=== PATIENT | male | born 1950 | race Caucasian/White ===

== ENCOUNTER 2016-12-08 19:09 | Inpatient (IN) | payer MEDICARE, OTHER ==
[2016-12-08] VITALS (13 sets, daily range): BP systolic 161–191; BP diastolic 64–80; PULSE 72–89; RESP 14–19; Ht 157.5 cm; Wt 76.6 kg
[~2016-12-08] VITALS: Ht 157.5 cm; Wt 76.6 kg
[2016-12-08] MEDS ORDERED: HYDR-3671 PO (20:02)
[2016-12-08] MEDS ORDERED: LANT3I SC (20:02)
[2016-12-08] MEDS ORDERED: CLON-379 PO (20:02)
[2016-12-08] MEDS ORDERED: CLONI (20:02)
[2016-12-08] MEDS ORDERED: INSU100C SQ (20:02)
[2016-12-08] MEDS ORDERED: CARV25TA97 PO (20:02)
[2016-12-08] MEDS ORDERED: TACR0.5C18 PO (20:02)
[2016-12-08] MEDS ORDERED: NIFE60TA11 PO (20:02)
[2016-12-08] MEDS ORDERED: PRED5 PO (20:02)
[2016-12-08] MEDS ORDERED: LEFL20TA PO (20:02)
--- NOTE | 2016-12-08 20:13 | RADRPT ---
PROCEDURE: XR Chest AP portable CLINICAL INDICATION: Preop TECHNIQUE: An AP portable radiograph of the chest was submitted. COMPARISON: None. FINDINGS: Support Hardware: None Cardiovascular: The cardiovascular silhouette appears unremarkable. Lung Helm: The lung helm appear clear with no nodule, alveolar infiltrate, for a interstitial pr ominence evident. Pleural Spaces: No pneumothorax or pleural effusion is identified. Osseous Structures: Moderate diffuse degenerative spine changes are evident. Soft Tissues: The right hemidiaphragm is mildly elevated and the soft tissues are generous. IMPRESSION: 1. Moderate degenerative spine changes 2. Elevated right hemidiaphragm 3. No evidence of active cardiopulmonary disease. Physician Liliana Date Time Electronically viewed and signed by Physician Liliana on 12/08/2016 20:13 /
[2016-12-08] MEDS ORDERED: INSULIN REGULAR, HUMAN 100 UNIT/1 ML 3ML VIAL IV STA (20:26)
[2016-12-08] MEDS ORDERED: MIDAZOLAM 1 MG/ML 2 ML INJ ONE (21:25)
[2016-12-08] MEDS ORDERED: FENTAnyl 50 MCG/ML VIAL ONE (21:25)
[2016-12-08] MEDS ORDERED: ONDANSETRON 4 MG INJ IV PRN ×2 (22:00→22:30)
[2016-12-08] MEDS ORDERED: FENTAnyl 50 MCG/ML VIAL IV PRN (22:00)
[2016-12-08] MEDS ORDERED: LABETALOL HCL 20MG INJ IV PRN (22:00)
[2016-12-08] MEDS ORDERED: HYDROmorphONE (0.2 MG/ML) 10ML SYG IV PRN ×2 (22:00)
[2016-12-08] MEDS ORDERED: DIPHENHYDRAMINE 50 MG INJ IV PRN (22:00)
[2016-12-08] MEDS ORDERED: ETOMIDATE 20 MG INJ ONE (22:07)
[2016-12-08] MEDS ORDERED: LIDOCAINE 2% (SDV) 5 ML INJ ONE (22:07)
[2016-12-08] MEDS ORDERED: ONDANSETRON 4 MG INJ ONE (22:07)
[2016-12-08] MEDS ORDERED: CEFAZOLIN 1 GM INJ ONE (22:07)
[2016-12-08] MEDS ORDERED: POLYMYXIN/BACITRACIN 1L IRRIG ONE (22:17)
[2016-12-08] MEDS: hydrALAzine 20 MG INJ IV PRN ×2 (22:18→22:41)
[2016-12-08] MEDS ORDERED: GLUCOSE GEL 15 GRAM TUBE BUCCAL PRN (23:00)
[2016-12-08] MEDS ORDERED: GLUCAGON 1 MG INJ IM PRN (23:00)
[2016-12-08] MEDS ORDERED: DEXTROSE 50% 50 ML SYRINGE IV PRN ×2 (23:00)
[2016-12-08] MEDS ORDERED: HYDROCODONE/APAP (5/325) TAB PO PRN (23:00)
[2016-12-08] MEDS ORDERED: GLUCOSE GEL 15 GRAM TUBE PO PRN ×2 (23:00)
[2016-12-09] VITALS (8 sets, daily range): BP systolic 136–188; BP diastolic 67–90; PULSE 72–84; RESP 16–20
[2016-12-09] MEDS: INSULIN GLARGINE [LANtus] 3 ML PEN SC SCH ×2 (01:24→21:35)
[2016-12-09] MEDS: hydrALAzine 20 MG INJ IV PRN ×4 (02:39→22:38)
--- NOTE | 2016-12-09 04:35 | OPR ---
DATE OF OPERATION: 12/08/2016 SURGEON: Lia Mayorga DPM EDUCATION MANAGERS: None. PREOPERATIVE DIAGNOSES: 1. Left foot gangrene. 2. Cellulitis. 3. Diabetes type 2 with a kidney transplant. POSTOPERATIVE DIAGNOSES: 1. Left foot gangrene. 2. Cellulitis. 3. Diabetes type 2 with a kidney transplant. PROCEDURE PERFORMED: 1. Left foot open partial hallux amputation. 2. Application of wound VAC. COMPLICATIONS: None. ESTIMATED BLOOD LOSS: Minimal. SPECIMENS: Bone culture and bone for pathology. ANESTHESIA: General. INDICATION FOR PROCEDURE: A 66-year-old male with gangrene to the left great toe, failed outpatient treatment, has had deterioration over the last 2 months, now with signs of cellulitis. The patient was seen in the preoperative holding area, discussed diagnosis and treatment options. The patient had poor prognosis due to comorbidities. He had been evaluated preoperatively by vascular, and per daughter, the patient underwent balloon angioplasty. The patient with multiple comorbidities, history of diabetes, renal transplant status on immunosuppressants. Procedure recommended due to infection and risk for further loss of tissue and informed consent was obtained for hallux amputation with partial first ray amputation. DESCRIPTION OF PROCEDURE: The patient was brought into the operating room and placed in the supine position. Formal timeout was performed. Extremity was prepped with Betadine and draped in usual sterile fashion. The patient had circumferential necrosis of the left great toe with a severe malodor. Using a 15 blade, incision was carried down to bone and incised proximal to the level of gangrene. A sagittal saw was used to transect the proximal phalanx. The toe was excised and sent to pathology. Additional portion of the proximal phalanx was obtained for bone for culture. The wound was irrigated with bacitracin and saline solution. The patient had necrosis of skin, subq, tendon and bone in addition to what was debrided excisionally. A wound VAC was applied intraoperatively with a silver dressing. The patient had minimal blood loss. The patient tolerated the procedure well and was transferred to the PACU with vital signs stable, wound VAC over 75 mmHg continuous setting. POSTOPERATIVE PLAN: Patient will be admitted. He has elevated blood sugar and recommend tight glycemic control. Concern with residual osteomyelitis. Infectious disease was consulted. Despite prior attempts with vascular intervention, the patient has a poor prognosis due to minimal intraoperative bleeding at risk for further tissue loss. The patient had been seen by Dr. Sanderson preoperatively. Pt with poor intraoperative bleeding. Obtain consultation for alternative options such as bypass surgery. The patient is initiated on 2 grams of Ancef preoperatively. Dictated By: LIA OSHEA/KIEL Conf#: [id number] DID#: [id number] MTDD
[2016-12-09 05:49] LABS: BASOPHILS % 0.4 % (0.0-2.0); EOSINOPHILS # 0.1 10^3/ul (0.0-0.5); EOSINOPHILS % 0.7 % (0.0-7.0); HEMATOCRIT 35.7 % (42.0-52.0); HEMOGLOBIN 11.9 g/dl (14.0-18.0); LYMPHOCYTES # 1.7 10^3/ul (0.8-2.9); LYMPHOCYTES % 15.4 % (15.0-51.0); MEAN CORPUSCULAR HEMOGLOBIN 30.1 pg (29.0-33.0); MEAN CORPUSCULAR HGB CONC 33.2 g/dl (32.0-37.0); MEAN CORPUSCULAR VOLUME 90.7 fl (82.0-101.0); MEAN PLATELET VOLUME 8.3 fl (7.4-10.4); MONOCYTE # 0.9 10^3/ul (0.3-0.9); MONOCYTES % 7.8 % (0.0-11.0); NEUTROPHIL # 8.6 10^3/ul (1.6-7.5); NEUTROPHILS % 75.7 % (39.0-77.0); PLATELET COUNT 225 10^3/UL (140-440); RED BLOOD COUNT 3.94 10^6/ul (4.70-6.10); RED CELL DISTRIBUTION WIDTH 13.6 % (11.5-14.5); UNCORRECTED WBC 11.3 10^3/ul (4.8-10.8); WHITE BLOOD COUNT 11.3 10^3/ul (4.8-10.8)
[2016-12-09 05:51] LABS: ALBUMIN 3.1 g/dl (3.3-4.9); POTASSIUM 3.5 mmol/L (3.5-5.1)
[2016-12-09 05:53] LABS: CREATININE 0.88 mg/dl (0.61-1.24)
[2016-12-09 05:54] LABS: CALCIUM 8.2 mg/dl (8.4-10.2)
[2016-12-09 05:57] LABS: C-REACTIVE PROTEIN 3.6 mg/dl (0.0-0.9)
[2016-12-09 06:02] LABS: PREALBUMIN 13.1 mg/dl (17.6-36.0)
[2016-12-09 06:45] LABS: CONDITION 1
[2016-12-09] MEDS: INSULIN ASPART [NOVOLOG] 3 ML PEN SC SCH ×4 (07:50→22:18)
--- NOTE | 2016-12-09 07:55 | CONS ---
DATE OF ADMISSION: 12/08/2016 DATE OF CONSULTATION: 12/08/2016 CHIEF COMPLAINT: 1. Left foot gangrene. 2. Cellulitis. 3. Edema. HISTORY OF PRESENT ILLNESS: This is a 66-year-old male with gangrene and infected left great toe scheduled for outpatient operative intervention with Dr. Crenshaw, I was asked to assist. The patient had preoperative testing and consented for left great toe amputation, partial resection of 1st metatarsal. The patient during the perioperative period had vascular evaluation with Dr. Adrian Sanderson and at [facility]. The patient relates a history of an initial minor injury with a cut which subsequently went infected, was evaluated 3 times at [place] and subsequently had been referred by his primary to Dr. Crenshaw for evaluation and management. The patient with multiple comorbidities, at risk for further loss of foot and limb. The patient has a history of diabetes, poorly controlled. Blood sugar remains elevated despite being on medication. PAST MEDICAL HISTORY: Includes diabetes type 2; hypertension; vitamin D deficiency; hyperlipidemia; BPH; history of end-stage renal disease, kidney transplant status 2014; history of CVA with residual defect; mild erectile dysfunction. PAST SURGICAL HISTORY: Bilateral eye surgery, appendectomy 6 years ago, kidney transplant in 2014. FAMILY HISTORY: Diabetes. SOCIAL HISTORY: , lives with and daughter. Smoking history: None. MEDICATIONS: Include: 1. Carvedilol 25 mg one p.o. b.i.d. 2. Clonidine 0.1 mg up to 3 times per hour if BP 170 to 190. 3. Hydralazine 75 mg one p.o. t.i.d. 4. Insulin Lispro sliding scale. 5. Lantus 25 units at bedtime. 6. Prednisone 5 mg one p.o. daily. 7. Procardia-XL 1 p.o. b.i.d. 8. Prograf 0.5 mg one p.o. b.i.d. REVIEW OF SYSTEMS: Denies any fever, nausea, vomiting. Has pain to the left foot, severe malodor. He denies bruising, bleeding. PHYSICAL EXAMINATION: VITAL SIGNS: Height is 64 inches. Weight 169 pounds. BMI 29.01. GENERAL: The patient alert, oriented. No acute distress. HEENT: Head is normocephalic, atraumatic. Extraocular motion intact. NECK: The patient has midline trachea. Normal range of motion of neck. EXTREMITIES: The patient has 2+ femoral pulse, 1+ popliteal. Pedal pulses are nonpalpable. Left hallux with gangrene at the level of the metatarsophalangeal joint. There is severe malodor, dusky-appearing changes to dorsal lesser metatarsophalangeal joints. No evidence of lymphangitis. There is pain with palpation of the left great toe. LABORATORIES: WBC 11.83, hemoglobin 13.3, hematocrit 40.5, platelets 281. PT 11.3, INR 1. Sodium 136, potassium 4.5, chloride 98, CO2 29, glucose 359, BUN is 27, creatinine 1.32. ASSESSMENT: 1. Left hallux gangrene. 2. Diabetes type 2, poorly controlled. 3. Hypertension. 4. Renal transplant status. 5. Vitamin D deficiency. 6. Hyperlipidemia. 7. History of cerebrovascular accident. 8. Peripheral arterial disease with history of recent revascularization balloon angioplasty. PLAN: The patient seen in the preoperative holding area, was requested to assist by Dr. Crenshaw. Discussed diagnosis and treatment options with patient and daughter. The patient at risk for further loss of toe, foot and limb given presence of infection. The patient consented for left hallux amputation up to partial 1st ray amputation, possible application of wound VAC. Given comorbidities, underlying vascular status, guarded prognosis for wound healing, the patient recommended admission postsurgically to have tight glycemic control , monitoring of pain as well as further administration of antibiotics, and the patient and family amenable. Discussed risks of surgery including bleeding, blood clots, nonhealing wound, need for further operative intervention and need for advanced therapies postoperatively. The patient had been in discussion with his vascular surgeon, and if circulation inadequate to heal the wound, may require alternative options. Discussed hospital admission with the hospitalist , and they will assist with medical management postoperatively. Dictated By: LIA OSHEA/KIEL Conf#: [id number] DID#: [id number] MTDD
[2016-12-09] MEDS: predniSONE 5 MG TAB PO SCH (08:06)
--- NOTE | 2016-12-09 08:31 | HP ---
Date/Time of Note Date/Time of Note DATE: 12/09/16 TIME: 08:23 Assessment/Plan Lines/Catheters IV Catheter Type (from Nrsg): Saline Lock Assessment/Plan Assessment/Plan IMPRESSION 1. Left foot gangrene s/p Left foot open partial hallux amputation and application of wound VAC. 2. DM 3. CVA 4. Kidney transplant PLAN Cont current medical mgmt Adjust insulin as needed for better glycemic control. currently stable Pain mgmt as needed Cont anti-rejection meds. if pt will have prolonged stay, will place a nephrology consult. Will check prograf level. HPI/ROS Admit Date/Time Admit Date/Time Dec 08, 2016 at 20:33 Hx of Present Illness This is a 66 yo male with hx of DM, CVA, kidney transplant and left foot gangrene who is now s/p Left foot open partial hallux amputation and application of wound VAC. Consult was placed for medical mgmt. Except for pain at surgical site, he denied chest pain, SOB, fever, chills, N/V. . PMH/Family/Social Social History Smoking Status: Never smoker Exam/Review of Systems Vital Signs Vitals Vital Signs Date Time Temp Pulse Resp B/P Pulse Ox O2 Delivery O2 Flow Rate FiO2 12/09/16 06:42 98.0 72 18 188/90 96 Room Air 12/08/16 22:23 6.0 Intake and Output 12/08/16 12/08/16 12/09/16 15:00 23:00 07:00 Intake Total 800 ml 500 ml Output Total 25 ml 700 ml Balance 775 ml -200 ml Exam Constitutional: alert, oriented, well developed Head: atraumatic, normocephalic Eyes: EOMI, PERRL Respiratory: clear to auscultation, normal air movement Cardiovascular: nl pulses, regular rate and rhythm Gastrointestinal: non-tender, soft Extremities: normal pulses, other (left foot surgical site covered) Labs Result Diagram: 12/09/1643912/09/16439 Medications Medications Current Medications Ondansetron HCl (Zofran Inj) 4 mg Q6H PRN IV NAUSEA AND/OR VOMITING; Start at 22:30 Carvedilol (Coreg) 25 mg BID PO Last administered on 12/09/16t 08:06; Admin Dose 25 MG; Start 12/09/16 at 09:00 Hydralazine HCl (Apresoline) 75 mg TID PO Last administered on 12/09/16 08:05 ; Admin Dose 75 MG; Start 12/09/16 at 09:00 Prednisone (Prednisone) 5 mg DAILY PO Last administered on 12/09/16 08:06; Admin Dose 5 MG; Start 12/09/16 at 09:00 Tacrolimus (Prograf) 0.5 mg BID PO ; Start 12/09/16 at 09:00 Insulin Glargine (Lantus) 25 unit HS SC Last administered on 12/09/16 01:24; Admin Dose 25 UNIT; Start 12/08/16 at 22:35 Miscellaneous Information 1 ea NOTE XX ; Start 12/08/16 at 23:00 Glucose (Glutose) 15 gm Q15M PRN PO DECREASED GLUCOSE; Start 12/08/16 at 23:00 Glucose (Glutose) 22.5 gm Q15M PRN PO DECREASED GLUCOSE; Start 12/08/16 at 23: 00 Dextrose (D50w Syringe) 25 ml Q15M PRN IV DECREASED GLUCOSE; Start 12/08/16 at 23:00 Dextrose (D50w Syringe) 50 ml Q15M PRN IV DECREASED GLUCOSE; Start 12/08/16 at 23:00 Glucagon (Glucagen) 1 mg Q15M PRN IM DECREASED GLUCOSE; Start 12/08/16 at 23:00 Glucose (Glutose) 15 gm Q15M PRN BUCCAL DECREASED GLUCOSE; Start 12/08/16 at 23 :00 Acetaminophen/ Hydrocodone Bitart ([place] (5/325)) 1 tab Q4H PRN PO PAIN LEVEL 1 -5; Start 12/08/16 at 23:00 Acetaminophen/ Hydrocodone Bitart ([place] (5/325)) 2 tab Q4H PRN PO PAIN 6-8; Start 12/08/16 at 23:00 Morphine Sulfate (morphine) 2 mg Q3H PRN IV PAIN 9-10; Start 12/08/16 at 23:00 Diagnostic Test (Pha) (Accucheck) 1 ea Q12 XX ; Start 12/09/16 at 09:00 Diagnostic Test (Pha) (Accucheck) 1 ea 02 XX ; Start 12/10/16 at 02:00 Hydralazine HCl (Apresoline) 10 mg Q4H PRN IV SBP greater than 160 Last administered on 12/09/16t 06:40; Admin Dose 10 MG; Start 12/09/16 at 01:00 Leflunomide (Arava) 20 mg BID PO ; Start 12/09/16 at 09:00; Status UNV Miscellaneous Information (*Order Clarification Bulletin) MEDICATION REQUIRES CLARIFICATI... Q8H XX ; Start 12/09/16 at 05:00 PAULINO DU MD Dec 09, 2016 08:31
[2016-12-09] MEDS ORDERED: LEFLUNOMIDE 10 MG TAB PO SCH (09:00)
[2016-12-09] MEDS: ACCUCHECK XX SCH ×2 (09:00→21:00)
[2016-12-09] MEDS: TACROLIMUS 0.5 MG CAP PO SCH ×2 (10:53→21:27)
--- NOTE | 2016-12-09 13:47 | PN ---
Date/Time of Note Date/Time of Note DATE: 12/09/16 TIME: 13:40 Assessment/Plan VTE Prophylaxis VTE Prophylaxis Intervention: SCD's Lines/Catheters IV Catheter Type (from Nrsg): Saline Lock Assessment/Plan Assessment/Plan 1. Left foot gangrene s/p Left foot open partial hallux amputation and application of wound VAC, on clindamycin 2. DM, stable, on insulins 3. CVA, stable 4. s/p Kidney transplant, stable Subjective 24 Hr Interval Summary Free Text/Dictation mild pain on left foot, afebrile Exam/Review of Systems Vital Signs Vitals Vital Signs Date Time Temp Pulse Resp B/P Pulse Ox O2 Delivery O2 Flow Rate FiO2 12/09/16 09:08 98.0 74 17 136/67 96 Room Air 12/08/16 22:23 6.0 Intake and Output 12/08/16 12/08/16 12/09/16 15:00 23:00 07:00 Intake Total 800 ml 500 ml Output Total 25 ml 700 ml Balance 775 ml -200 ml Exam Constitutional: alert, oriented, well developed Psych: nl mood/affect, no complaints Head: atraumatic, normocephalic Eyes: EOMI, PERRL, nl conjunctiva, nl lids, nl sclera ENMT: mucosa pink and moist, nl external ears & nose, nl lips & teeth, nl nasal mucosa & septum Neck: non-tender, supple Respiratory: clear to auscultation, normal air movement, No congested cough, No crackles/rales, No diminished breath sounds, No intercostal retraction, No labored breathing, No respirations, No tactile fremitus, No wheezing Cardiovascular: nl pulses, regular rate and rhythm, No S3, No S4, No bruits, No diastolic murmur, No edema, No gallop, No irregular rhythm, No jugular venous distention (JVD), No murmurs/extra sounds, No rub, No systolic murmur Gastrointestinal: nl liver, spleen, non-tender, soft, No ascites, No bowel sounds, No distended, No firm, No hepatomegaly, No mass , No rebound or guarding, No splenomegaly, No surgical scars, No tender Musculoskeletal: nl extremities to inspection Extremities: other (left foot s/p amputation, on wound Vac) Neurological: [employer] II-XII intact, nl mental status, nl speech, nl strength Skin: nl turgor, rash or lesions Lymph: nl lymph nodes Results Result Diagram: 12/09/16 0440 12/09/16 0440 Results 24 hrs Laboratory Tests Test 12/08/16 20:17 12/08/16 22:14 12/08/16 23:28 12/09/16 04:40 Bedside Glucose 330 H 235 H 129 Albumin 3.1 L Anion Gap 12 Basophils # 0.0 Basophils % 0.4 Blood Urea Nitrogen 19 C-Reactive Protein 3.6 H Calcium Level 8.2 L Carbon Dioxide Level 30 Chloride Level 102 Creatinine 0.88 Eosinophils # 0.1 Eosinophils % 0.7 Erythrocyte Sedimentation Rate 53.0 H Glucose Level 107 Hematocrit 35.7 L Hemoglobin 11.9 L Lymphocytes # 1.7 Lymphocytes % 15.4 Mean Corpuscular Hemoglobin 30.1 Mean Corpuscular Hemoglobin Concent 33.2 Mean Corpuscular Volume 90.7 Mean Platelet Volume 8.3 Monocytes # 0.9 Monocytes % 7.8 Neutrophils # 8.6 H Neutrophils % 75.7 Nucleated Red Blood Cells # 0.0 Nucleated Red Blood Cells % 0.0 Platelet Count 225 Potassium Level 3.5 Prealbumin 13.1 L Red Blood Count 3.94 L Red Cell Distribution Width 13.6 Sodium Level 140 White Blood Count 11.3 H Test 12/09/16 07:40 12/09/16 11:29 Bedside Glucose 99 190 Medications Medications Current Medications Ondansetron HCl (Zofran Inj) 4 mg Q6H PRN IV NAUSEA AND/OR VOMITING; Start at 22:30 Carvedilol (Coreg) 25 mg BID PO Last administered on 12/09/16 08:06; Admin Dose 25 MG; Start 12/09/16 at 09:00 Hydralazine HCl (Apresoline) 75 mg TID PO Last administered on 12/09/16 12:18 ; Admin Dose 75 MG; Start 12/09/16 at 09:00 Prednisone (Prednisone) 5 mg DAILY PO Last administered on 12/09/16 08:06; Admin Dose 5 MG; Start 12/09/16 at 09:00 Tacrolimus (Prograf) 0.5 mg BID PO Last administered on 12/09/16 10:53; Admin Dose 0.5 MG; Start 12/09/16 at 09:00 Insulin Glargine (Lantus) 25 unit HS SC Last administered on 12/09/16t 01:24; Admin Dose 25 UNIT; Start 12/08/16 at 22:35 Miscellaneous Information 1 ea NOTE XX ; Start 12/08/16 at 23:00 Glucose (Glutose) 15 gm Q15M PRN PO DECREASED GLUCOSE; Start 12/08/16 at 23:00 Glucose (Glutose) 22.5 gm Q15M PRN PO DECREASED GLUCOSE; Start 12/08/16 at 23: 00 Dextrose (D50w Syringe) 25 ml Q15M PRN IV DECREASED GLUCOSE; Start 12/08/16 at 23:00 Dextrose (D50w Syringe) 50 ml Q15M PRN IV DECREASED GLUCOSE; Start 12/08/16 at 23:00 Glucagon (Glucagen) 1 mg Q15M PRN IM DECREASED GLUCOSE; Start 12/08/16 at 23:00 Glucose (Glutose) 15 gm Q15M PRN BUCCAL DECREASED GLUCOSE; Start 12/08/16 at 23 :00 Acetaminophen/ Hydrocodone Bitart ([place] (5/325)) 1 tab Q4H PRN PO PAIN LEVEL 1 -5; Start 12/08/16 at 23:00 Acetaminophen/ Hydrocodone Bitart ([place] (5/325)) 2 tab Q4H PRN PO PAIN 6-8; Start 12/08/16 at 23:00 Morphine Sulfate (morphine) 2 mg Q3H PRN IV PAIN 9-10; Start 12/08/16 at 23:00 Diagnostic Test (Pha) (Accucheck) 1 ea Q12 XX ; Start 12/09/16 at 09:00 Diagnostic Test (Pha) (Accucheck) 1 ea 02 XX ; Start 12/10/16 at 02:00 Hydralazine HCl (Apresoline) 10 mg Q4H PRN IV SBP greater than 160 Last administered on 12/09/16 06:40; Admin Dose 10 MG; Start 12/09/16 at 01:00 Leflunomide (Arava) 20 mg BID PO ; Start 12/09/16 at 09:00; Status UNV Miscellaneous Information MEDICATION REQUIRES CLARIFICATI... Q8H XX ; Start 12/09/16 at 05:00 Clindamycin HCl/ Dextrose (Cleocin 900 Mg/ D5W (Pmx)) 50 ml @ 50 mls/hr Q8 IVPB ; Start 12/09/16 at 14:00 KELLEE AQUINO MD Dec 09, 2016 13:47
--- NOTE | 2016-12-09 14:36 | CONS ---
DATE OF ADMISSION: 12/08/2016 DATE OF CONSULTATION: 12/09/2016 REASON FOR CONSULTATION: Antibiotic management. HISTORY OF PRESENT ILLNESS: Bebeto Carnes is a 66-year-old male with numerous problems w ho comes in with left foot gangrene and is being seen for antibiotic management. Past problems incl ude: 1. Adult-onset diabetes mellitus. 2. History of CVA. 3. Renal transplant. 4. Left foot gangrene. The patient is now status left foot open partial hallux amputation and application of wound VAC. On admission, his white count 11.3, H and H 11.9 and 35.7, platelet count 225,000. BUN and creatinine 19/0.88. The patient is on 5 mg of prednisone on admission. His BUN and creatinine as noted is 19 /0.88. PAST MEDICAL HISTORY: Operations as outlined. FAMILY HISTORY: Noncontributory. SOCIAL HISTORY: He does not smoke, drink or abuse drugs. ALLERGIES: NONE TO PENICILLIN, SULFA OR FOODS. MEDICATIONS: Per chart. REVIEW OF SYSTEMS: As per HPI. PHYSICAL EXAMINATION: GENERAL: The patient is a well-developed, well-nourished male who is alert, responsive, in no acute distress. VITAL SIGNS: Stable. He is afebrile. SKIN: Without generalized rash. HEENT: Within normal limits. NECK: Supple. LYMPH NODES: None palpable. CHEST: Decreased breath sounds at the bases. HEART: Without murmur or gallop. ABDOMEN: Soft, nontender, without organosplenomegaly or masses. EXTREMITIES: Left foot surgical site is covered. RECTAL AND GENITAL: Deferred. NEUROLOGIC: No focal neurological abnormality. IMPRESSION AND PLAN: The patient is a patient of Dr. Preston Mayorga and 12/08/2016 the patient had a left foot open partial hallux amputation and application of a wound VAC. It would seem that he is a candidate for either clindamycin or vancomycin. I will place him on clindamycin. I will dictate my findings to Dr. Mayorga and to the hospitalist. Dictated By: PAT LOUIS MD, JD/KIEL Conf#: [id number] DID#: [id number]
[2016-12-09] MEDS: CLINDAMYCIN 900 MG/D5W (PMX) 50 ML IVPB SCH ×2 (14:58→22:38)
[2016-12-09] MEDS ORDERED: LEFLUNOMIDE 20 MG TAB PO ONE (16:00)
--- NOTE | 2016-12-09 16:20 | RADRPT ---
Vent Rate: 78 bpm RR Interval: 0 msec TX Interval: 164 msec QRS Duration: 104 msec QT Interval: 394 msec QTC Interval: 449 msec P-R-T [place]: 27 - -39 - 124 degrees Normal sinus rhythm Left axis deviation Left ventricular hypertrophy with repolarization abnormality Abnormal ECG Electronically Signed By: Shaun Rosado [id number]
[2016-12-09] MEDS ORDERED: LEFLUNOMIDE 10 MG TAB PO ONE (16:30)
--- NOTE | 2016-12-09 18:01 | CONS ---
DATE OF ADMISSION: 12/08/2016 DATE OF CONSULTATION: 12/09/2016 SUBJECTIVE FINDINGS: The patient is being seen postoperatively postop day #1 left great toe partial amputation. The patient had minimal intraoperative bleeding and discussed with vascular and no fur ther interventions recommended. The patient seen by ID. The patient has preliminary cultures growi ng gram-negative rods. The patient denies any fever, nausea, vomiting, chest pain, shortness of marlen ath. PHYSICAL EXAMINATION: VITAL SIGNS: Temperature 98, pulse is 74, respiratory rate 17, blood pressure 136/67, pulse oximetr y is 96 with room air. GENERAL: The patient alert, oriented, no acute distress. Regular respiration. EXTREMITIES: The patient with left foot wound VAC with minimal sanguineous exudate. There is decre ased edema and cyanosis to adjacent toes. SKIN: No evidence of decubitus ulceration. LABORATORIES: WBC 11.3, hemoglobin 11.9, hematocrit 35.7, platelets 225. Sed rate is 53. Sodium 1 40, potassium 3.5, chloride 102, CO2 30, BUN 19, creatinine 0.88, albumin 3.1. Prealbumin 13.1. ASSESSMENT: 1. Left foot gangrene. 2. Osteomyelitis with gram-negative rods with preliminary findings. 3. Cellulitis. 4. Diabetes type 2. 5. History of cerebrovascular accident. 6. Renal transplant. PLAN: The patient currently on clindamycin, await definitive culture results. The patient has woun d VAC presently, but given minimal drainage will likely discontinue at the time of discharge. Await final culture results. The patient requesting to be discharged home. Likely to require home healt h, appreciate case management assistance with this. Recommend tight glycemic control, optimizing nu tritional status. Estimated length of stay 2 to 3 days. Dictated By: LIA OSHEA/KIEL Conf#: [id number] DID#: [id number]
[2016-12-09] MEDS ORDERED: ALPRAZOLAM 0.5 MG TAB PO PRN (19:00)
[2016-12-09] MEDS: morphine 2 MG INJ IV PRN (19:59)
[2016-12-10] MEDS: ACCUCHECK XX SCH ×3 (02:00→21:00)
[2016-12-10] MEDS: CLINDAMYCIN 900 MG/D5W (PMX) 50 ML IVPB SCH ×2 (05:25→14:31)
[2016-12-10 05:30] VITALS: BP 170/77; PULSE 75
[2016-12-10 05:32] LABS: BASOPHILS % 0.4 % (0.0-2.0); EOSINOPHILS # 0.1 10^3/ul (0.0-0.5); EOSINOPHILS % 1.2 % (0.0-7.0); HEMATOCRIT 37.8 % (42.0-52.0); HEMOGLOBIN 12.4 g/dl (14.0-18.0); LYMPHOCYTES # 1.4 10^3/ul (0.8-2.9); LYMPHOCYTES % 13.1 % (15.0-51.0); MEAN CORPUSCULAR HEMOGLOBIN 29.6 pg (29.0-33.0); MEAN CORPUSCULAR HGB CONC 32.9 g/dl (32.0-37.0); MEAN CORPUSCULAR VOLUME 90.2 fl (82.0-101.0); MEAN PLATELET VOLUME 8.4 fl (7.4-10.4); MONOCYTE # 0.9 10^3/ul (0.3-0.9); MONOCYTES % 8.7 % (0.0-11.0); NEUTROPHIL # 8.1 10^3/ul (1.6-7.5); NEUTROPHILS % 76.6 % (39.0-77.0); PLATELET COUNT 226 10^3/UL (140-440); RED BLOOD COUNT 4.19 10^6/ul (4.70-6.10); UNCORRECTED WBC 10.6 10^3/ul (4.8-10.8); WHITE BLOOD COUNT 10.6 10^3/ul (4.8-10.8)
[2016-12-10] MEDS: hydrALAzine 20 MG INJ IV PRN ×2 (05:35→20:10)
[2016-12-10] MEDS: HYDROCODONE/APAP (5/325) TAB PO PRN ×2 (05:36→18:32)
[2016-12-10 05:57] LABS: CONDITION 1
[2016-12-10 06:19] LABS: ALBUMIN 3.3 g/dl (3.3-4.9)
[2016-12-10 06:20] LABS: POTASSIUM 3.8 mmol/L (3.5-5.1)
[2016-12-10 06:22] LABS: ALBUMIN/GLOBULIN RATIO 0.97; BILIRUBIN,INDIRECT 0.2 mg/dl (0-1.1); BILIRUBIN,TOTAL 0.2 mg/dl (0.2-1.3); CALCIUM 8.4 mg/dl (8.4-10.2); CREATININE 0.92 mg/dl (0.61-1.24); TOTAL PROTEIN 6.7 g/dl (6.1-8.1)
[2016-12-10 07:00] VITALS: BP 138/62; RESP 19
[2016-12-10] MEDS: TACROLIMUS 0.5 MG CAP PO SCH ×2 (08:32→20:11)
[2016-12-10] MEDS: predniSONE 5 MG TAB PO SCH (08:32)
[2016-12-10] MEDS: INSULIN ASPART [NOVOLOG] 3 ML PEN SC SCH ×4 (08:34→21:20)
[2016-12-10] MEDS: LEFLUNOMIDE 10 MG TAB PO SCH (08:38)
[2016-12-10] MEDS ORDERED: LEFLUNOMIDE 20 MG TAB PO SCH (09:00)
--- NOTE | 2016-12-10 12:45 | PN ---
Date/Time of Note Date/Time of Note DATE: 12/10/16 TIME: 12:41 Assessment/Plan VTE Prophylaxis VTE Prophylaxis Intervention: LMWH Lines/Catheters IV Catheter Type (from Nrs): Peripheral IV Assessment/Plan Chief Complaint/Hosp Course Hospitalist service coverage: S: No pain fever distress. O: vss; bs a little high PE No pallor Reg, no m/r/g ctab bs+ nt, nd, no r/r/g Lt hallux w wound VAC; no edema; chr likely diabetic neuropathy A/P 1. Left first toe/hallux gangrene/osteomyelitis. sp amputation; stable cont wound care. Follow up on cultures. Wound VAC for now. 2. DM/metabolic syndrome; needs long-term diabetic support 3. History of stroke 4. ESRD; Sp transplant status; cont immunosuppressive therapy 5. FTT; home w home health vs rehabilitation 6. DFI; oral antibiotics? Problems: Exam/Review of Systems Vital Signs Vitals Vital Signs Date Time Temp Pulse Resp B/P Pulse Ox O2 Delivery O2 Flow Rate FiO2 12/10/16 07:00 97.9 67 19 138/62 98 12/09/16 15:00 Room Air 12/08/16 22:23 6.0 Intake and Output 12/09/16 12/09/16 12/10/16 15:00 23:00 07:00 Intake Total 1310 ml 800 ml Output Total 800 ml Balance 1310 ml 0 ml Results Result Diagram: 12/10/16 0434 12/10/16 0434 Results 24 hrs Laboratory Tests Test 12/09/16 16:30 12/09/16 21:32 12/10/16 02:43 12/10/16 04:34 Bedside Glucose 220 292 H 181 Alanine Aminotransferase (ALT/SGPT) 20 Albumin 3.3 Albumin/Globulin Ratio 0.97 Alkaline Phosphatase 74 Anion Gap 13 Aspartate Amino Transf (AST/SGOT) 19 Basophils # 0.0 Basophils % 0.4 Blood Urea Nitrogen 19 Calcium Level 8.4 Carbon Dioxide Level 30 Chloride Level 99 Creatinine 0.92 Direct Bilirubin 0.00 Eosinophils # 0.1 Eosinophils % 1.2 Globulin 3.40 H Glucose Level 154 Hematocrit 37.8 L Hemoglobin 12.4 L Indirect Bilirubin 0.2 Lymphocytes # 1.4 Lymphocytes % 13.1 L Mean Corpuscular Hemoglobin 29.6 Mean Corpuscular Hemoglobin Concent 32.9 Mean Corpuscular Volume 90.2 Mean Platelet Volume 8.4 Monocytes # 0.9 Monocytes % 8.7 Neutrophils # 8.1 H Neutrophils % 76.6 Nucleated Red Blood Cells # 0.0 Nucleated Red Blood Cells % 0.0 Platelet Count 226 Potassium Level 3.8 Red Blood Count 4.19 L Red Cell Distribution Width 14.0 Sodium Level 138 Total Bilirubin 0.2 Total Protein 6.7 White Blood Count 10.6 Test 12/10/16 07:42 12/10/16 11:44 Bedside Glucose 218 284 H Medications Medications Current Medications Ondansetron HCl (Zofran Inj) 4 mg Q6H PRN IV NAUSEA AND/OR VOMITING; Start at 22:30 Carvedilol (Coreg) 25 mg BID PO Last administered on 12/10/16 08:32; Admin Dose 25 MG; Start 12/09/16 at 09:00 Hydralazine HCl (Apresoline) 75 mg TID PO Last administered on 12/10/16 08:32 ; Admin Dose 75 MG; Start 12/09/16 at 09:00 Prednisone (Prednisone) 5 mg DAILY PO Last administered on 12/10/16 08:32; Admin Dose 5 MG; Start 12/09/16 at 09:00 Tacrolimus (Prograf) 0.5 mg BID PO Last administered on 12/10/16 08:32; Admin Dose 0.5 MG; Start 12/09/16 at 09:00 Insulin Glargine (Lantus) 25 unit HS SC Last administered on 12/09/16 21:35; Admin Dose 25 UNIT; Start 12/08/16 at 22:35 Miscellaneous Information 1 ea NOTE XX ; Start 12/08/16 at 23:00 Glucose (Glutose) 15 gm Q15M PRN PO DECREASED GLUCOSE; Start 12/08/16 at 23:00 Glucose (Glutose) 22.5 gm Q15M PRN PO DECREASED GLUCOSE; Start 12/08/16 at 23: 00 Dextrose (D50w Syringe) 25 ml Q15M PRN IV DECREASED GLUCOSE; Start 12/08/16 at 23:00 Dextrose (D50w Syringe) 50 ml Q15M PRN IV DECREASED GLUCOSE; Start 12/08/16 at 23:00 Glucagon (Glucagen) 1 mg Q15M PRN IM DECREASED GLUCOSE; Start 12/08/16 at 23:00 Glucose (Glutose) 15 gm Q15M PRN BUCCAL DECREASED GLUCOSE; Start 12/08/16 at 23 :00 Acetaminophen/ Hydrocodone Bitart ([place] (5/325)) 1 tab Q4H PRN PO PAIN LEVEL 1 -5; Start 12/08/16 at 23:00 Acetaminophen/ Hydrocodone Bitart ([place] (5/325)) 2 tab Q4H PRN PO PAIN 6-8 Last administered on 12/10/16 05:36; Admin Dose 2 TAB; Start 12/08/16 at 23:00 Morphine Sulfate (morphine) 2 mg Q3H PRN IV PAIN 9-10 Last administered on 12/09 19:59; Admin Dose 2 MG; Start 12/08/16 at 23:00 Diagnostic Test (Pha) (Accucheck) 1 ea Q12 XX ; Start 12/09/16 at 09:00 Diagnostic Test (Pha) (Accucheck) 1 ea 02 XX ; Start 12/10/16 at 02:00 Hydralazine HCl 10 mg 10 mg Q4H PRN IV SBP greater than 160 Last administered on 12/10/16 05:35; Admin Dose 10 MG; Start 12/09/16 at 01:00 Clindamycin HCl/ Dextrose (Cleocin 900 Mg/ D5W (Pmx)) 50 ml @ 50 mls/hr Q8 IVPB Last administered on 12/10/16 05:25; Admin Dose 50 MLS/HR; Start 12/09/16 at 14:00 Alprazolam (Xanax) 0.5 mg BID PRN PO anxiety; Start 12/09/16 at 19:00 Leflunomide (Arava) 20 mg DAILY PO Last administered on 12/10/16 08:38; Admin Dose 20 MG; Start 12/10/16 at 09:00 Lactobacillus Acidoph/Bulgaricus (Floranex) 1 tab BID PO ; Start 12/10/16 at 21: 00 Nifedipine (Procardia Xl) 60 mg BID PO ; Start 12/10/16 at 21:00 PEDRO ZHENG MD Dec 10, 2016 12:45
[2016-12-10] MEDS ORDERED: DOCUSATE SODIUM 100 MG CAP PO PRN (13:00)
[2016-12-10] MEDS ORDERED: VANCOMYCIN IV PER PHARMACY XX SCH (15:00)
[2016-12-10] MEDS ORDERED: VANCOMYCIN 1.5 GM in SOD CHLORIDE 0.9% 250 ML IVPB ONE (15:00)
[2016-12-10] MEDS ORDERED: LEVOFLOXACIN 500 MG TAB PO ONE (15:00)
[2016-12-10 19:58] VITALS: BP 223/95; RESP 22
[2016-12-10] MEDS: NIFEdipine (XL) 60 MG TAB PO SCH (20:10)
[2016-12-10] MEDS: LACTOBACILLUS CHEW TAB PO SCH (20:11)
[2016-12-10] MEDS: INSULIN GLARGINE [LANtus] 3 ML PEN SC SCH (20:24)
--- NOTE | 2016-12-10 20:36 | PN ---
DATE: 12/10/2016 SUBJECTIVE: Patient is alert, looks comfortable. Denies pain, no fevers. WBC today 10.6, no shift , no bands. BUN 19, creatinine 0.92. MICROBIOLOGY: Wound culture growing Enterococcus species and Morganella morganii species, susceptib le to Levaquin. ANTIBIOTICS: patient was started on: 1. Levaquin. 2. Vancomycin. Status post clindamycin. PHYSICAL EXAMINATION GENERAL: An obese, well-developed, elderly man who is alert, in no distress. HEENT: Head atraumatic, normocephalic. Sclerae are anicteric. Buccal mucosa pink. NECK: Supple. CHEST: Rise symmetrical. Breath sounds clear. HEART: S1, S2. ABDOMEN: Soft, bowel tones present. EXTREMITIES: Left foot to wound VAC. ASSESSMENT 1. Left lower extremity cellulitis with osteomyelitis, status post I and D with great toe amputatio n. 2. Diabetes. 3. History of cerebrovascular accident. 4. History of renal transplant; on Prograf, prednisone. PLAN: The patient remains stable. Final cultures sent. Sensitivities are pending. He is on appro priate antimicrobials. We will monitor renal function closely. Follow podiatry and vascular surger y's recommendations. Dictated By: BEHZAD TURNER CLIENT CARE COORDINATOR for PAT LORD/KIEL Conf#: [id number] DID#: [id number]
[2016-12-10] MEDS: morphine 2 MG INJ IV PRN (21:16)
[2016-12-10 21:30] VITALS: BP 180/72; PULSE 76
[2016-12-10] MEDS ORDERED: GUAIFENESIN 20 MG/ML 5ML CUP PO PRN (22:00)
[2016-12-11 00:12] VITALS: BP 153/66; PULSE 72
[2016-12-11] MEDS: HYDROCODONE/APAP (5/325) TAB PO PRN ×3 (00:19→12:32)
[2016-12-11] MEDS: ACCUCHECK XX SCH ×2 (02:00→08:48)
[2016-12-11 04:54] VITALS: BP 146/66; PULSE 68
--- NOTE | 2016-12-11 05:01 | CONS ---
DATE OF ADMISSION: 12/09/2016 DATE OF CONSULTATION: 12/10/2016 SUBJECTIVE FINDINGS: The patient being seen postoperative day 2 for left great toe partial amputati on with application of wound VAC. The patient denies any acute complaints. He is considering acute rehabilitation. OBJECTIVE FINDINGS: VITAL SIGNS: Temperature 97.9, pulse is 67, respiratory 19, blood pressure 138/62, pulse ox is 98 w ith room air. EXTREMITIES: Left foot with partial amputation with wound VAC intact. Mild sanguineous exudate. T here is decreased edema, cyanosis to adjacent toes. No pain with ankle joint range of motion. No s igns of decubitus ulceration. LABORATORY DATA: Morganella morganii and Enterococcus species. WBC 10.6, hemoglobin 12.4, hematocr it 37.8, platelets 226. Sodium 138, potassium 3.8, chloride 99, CO2 30, BUN 19, creatinine 0.92, gl ucose is 267. ASSESSMENT: 1. Left foot gangrene status post partial hallux amputation. 2. Osteomyelitis with Enterococcus and Morganella morganii. 3. Cellulitis. 4. Diabetes type 2. 5. History of cerebrovascular accident. 6. Renal transplant. PLAN: Recommend discharge planning. The patient considering acute rehab placement. Continue wound VAC, and await ID recommendations. Dictated By: LIA OSHEA/KIEL Conf#: [id number] DID#: [id number]
[2016-12-11 05:42] LABS: ALBUMIN 3.3 g/dl (3.3-4.9)
[2016-12-11 05:43] LABS: POTASSIUM 3.8 mmol/L (3.5-5.1)
[2016-12-11 05:45] LABS: ALBUMIN/GLOBULIN RATIO 0.97; BILIRUBIN,INDIRECT 0.2 mg/dl (0-1.1); BILIRUBIN,TOTAL 0.2 mg/dl (0.2-1.3); CREATININE 0.95 mg/dl (0.61-1.24); TOTAL PROTEIN 6.7 g/dl (6.1-8.1)
[2016-12-11 05:46] LABS: CALCIUM 8.3 mg/dl (8.4-10.2)
[2016-12-11 05:58] LABS: BASOPHILS % 0.1 % (0.0-2.0); EOSINOPHILS # 0.2 10^3/ul (0.0-0.5); EOSINOPHILS % 1.5 % (0.0-7.0); HEMOGLOBIN 12.3 g/dl (14.0-18.0); LYMPHOCYTES # 1.2 10^3/ul (0.8-2.9); LYMPHOCYTES % 10.7 % (15.0-51.0); MEAN CORPUSCULAR HEMOGLOBIN 30.3 pg (29.0-33.0); MEAN CORPUSCULAR HGB CONC 33.3 g/dl (32.0-37.0); MEAN CORPUSCULAR VOLUME 91.1 fl (82.0-101.0); MEAN PLATELET VOLUME 8.2 fl (7.4-10.4); MONOCYTE # 0.9 10^3/ul (0.3-0.9); MONOCYTES % 7.3 % (0.0-11.0); NEUTROPHIL # 9.4 10^3/ul (1.6-7.5); NEUTROPHILS % 80.4 % (39.0-77.0); PLATELET COUNT 237 10^3/UL (140-440); RED BLOOD COUNT 4.06 10^6/ul (4.70-6.10); RED CELL DISTRIBUTION WIDTH 13.8 % (11.5-14.5); UNCORRECTED WBC 11.7 10^3/ul (4.8-10.8); WHITE BLOOD COUNT 11.7 10^3/ul (4.8-10.8)
[2016-12-11] MEDS ORDERED: LEVOFLOXACIN 500 MG TAB PO SCH (06:00)
[2016-12-11 06:45] LABS: THYROID STIMULATING HORMONE 2.2 MIU/L (0.465-4.680)
[2016-12-11 06:53] LABS: CONDITION 1
[2016-12-11] MEDS: INSULIN ASPART [NOVOLOG] 3 ML PEN SC SCH ×2 (07:50→12:39)
[2016-12-11 07:55] VITALS: BP 206/85; RESP 17
[2016-12-11] MEDS: morphine 2 MG INJ IV PRN (08:32)
[2016-12-11] MEDS: LEFLUNOMIDE 10 MG TAB PO SCH (08:39)
[2016-12-11] MEDS: NIFEdipine (XL) 60 MG TAB PO SCH (08:40)
[2016-12-11] MEDS: TACROLIMUS 0.5 MG CAP PO SCH (08:40)
[2016-12-11] MEDS: LACTOBACILLUS CHEW TAB PO SCH (08:40)
[2016-12-11] MEDS: predniSONE 5 MG TAB PO SCH (08:41)
[2016-12-11] MEDS ORDERED: FAMOTIDINE 20 MG TAB PO SCH (09:00)
[2016-12-11 09:21] VITALS: BP 180/79; PULSE 68
[2016-12-11] MEDS: hydrALAzine 20 MG INJ IV PRN (10:35)
[2016-12-11 11:51] VITALS: BP 168/75; PULSE 71
--- NOTE | 2016-12-11 12:44 | PN ---
Date/Time of Note Date/Time of Note DATE: 12/11/16 TIME: 12:42 Assessment/Plan VTE Prophylaxis VTE Prophylaxis Intervention: LMWH Lines/Catheters IV [facility] [place] Assessment/Plan Chief Complaint/Hosp Course Hospitalist service coverage: S: 12/10 No pain fever distress. 12/11 events noted O: vss PE No pallor Reg, no m/r/g ctab bs+ nt, nd, no r/r/g Lt hallux w wound VAC; no edema; chr likely diabetic neuropathy A/P 1. Lt first toe/hallux gangrene/om. sp amputation; stable cont wound care/ wound VAC. Follow up on cultures. 2. DM/metabolic syndrome; needs long-term diabetic support 3. History of stroke 4. ESRD; Sp transplant status; cont immunosuppressive therapy 5. FTT; home w home health vs rehabilitation; okay for discharge 6. DFI; VRE & Morganella; oral antibiotics? Problems: Exam/Review of Systems Vital Signs Vitals Vital Signs Date Time Temp Pulse Resp B/P Pulse Ox O2 Delivery O2 Flow Rate FiO2 12/11/16 11:51 71 168/75 12/11/16 07:55 98.0 17 100 12/09/16 15:00 Room Air 12/08/16 22:23 6.0 Intake and Output 12/10/16 12/10/16 12/11/16 15:00 23:00 07:00 Intake Total 50 ml 1410 ml 600 ml Balance 50 ml 1410 ml 600 ml Results Result Diagram: 12/11/16 0415 12/11/16 0415 Results 24 hrs Laboratory Tests Test 12/10/16 16:52 12/10/16 20:18 12/11/16 02:37 12/11/16 04:15 Bedside Glucose 267 H 226 H 102 Alanine Aminotransferase (ALT/SGPT) 20 Albumin 3.3 Albumin/Globulin Ratio 0.97 Alkaline Phosphatase 71 Anion Gap 15 Aspartate Amino Transf (AST/SGOT) 19 Basophils # 0.0 Basophils % 0.1 Blood Urea Nitrogen 18 Calcium Level 8.3 L Carbon Dioxide Level 29 Chloride Level 98 Creatinine 0.95 Direct Bilirubin 0.00 Eosinophils # 0.2 Eosinophils % 1.5 Globulin 3.40 H Glucose Level 81 # Hematocrit 37.0 L Hemoglobin 12.3 L Hemoglobin A1c 8.9 H Indirect Bilirubin 0.2 Lymphocytes # 1.2 Lymphocytes % 10.7 L Mean Corpuscular Hemoglobin 30.3 Mean Corpuscular Hemoglobin Concent 33.3 Mean Corpuscular Volume 91.1 Mean Platelet Volume 8.2 Monocytes # 0.9 Monocytes % 7.3 Neutrophils # 9.4 H Neutrophils % 80.4 H Nucleated Red Blood Cells # 0.0 Nucleated Red Blood Cells % 0.0 Platelet Count 237 Potassium Level 3.8 Red Blood Count 4.06 L Red Cell Distribution Width 13.8 Sodium Level 138 Thyroid Stimulating Hormone (TSH) 2.200 Total Bilirubin 0.2 Total Protein 6.7 White Blood Count 11.7 H Test 12/11/16 08:36 12/11/16 12:30 Bedside Glucose 102 147 Medications Medications Current Medications Ondansetron HCl (Zofran Inj) 4 mg Q6H PRN IV NAUSEA AND/OR VOMITING; Start at 22:30 Carvedilol (Coreg) 25 mg BID PO Last administered on 12/11/16 08:41; Admin Dose 25 MG; Start 12/09/16 at 09:00 Hydralazine HCl (Apresoline) 75 mg TID PO Last administered on 12/11/16 12:32 ; Admin Dose 75 MG; Start 12/09/16 at 09:00 Prednisone (Prednisone) 5 mg DAILY PO Last administered on 12/11/16 08:41; Admin Dose 5 MG; Start 12/09/16 at 09:00 Tacrolimus (Prograf) 0.5 mg BID PO Last administered on 12/11/16 08:40; Admin Dose 0.5 MG; Start 12/09/16 at 09:00 Insulin Glargine (Lantus) 25 unit HS SC Last administered on 12/10/16 20:24; Admin Dose 25 UNIT; Start 12/08/16 at 22:35 Miscellaneous Information 1 ea NOTE XX ; Start 12/08/16 at 23:00 Glucose (Glutose) 15 gm Q15M PRN PO DECREASED GLUCOSE; Start 12/08/16 at 23:00 Glucose (Glutose) 22.5 gm Q15M PRN PO DECREASED GLUCOSE; Start 12/08/16 at 23: 00 Dextrose (D50w Syringe) 25 ml Q15M PRN IV DECREASED GLUCOSE; Start 12/08/16 at 23:00 Dextrose (D50w Syringe) 50 ml Q15M PRN IV DECREASED GLUCOSE; Start 12/08/16 at 23:00 Glucagon (Glucagen) 1 mg Q15M PRN IM DECREASED GLUCOSE; Start 12/08/16 at 23:00 Glucose (Glutose) 15 gm Q15M PRN BUCCAL DECREASED GLUCOSE; Start 12/08/16 at 23 :00 Acetaminophen/ Hydrocodone Bitart ([place] (5/325)) 1 tab Q4H PRN PO PAIN LEVEL 1 -5; Start 12/08/16 at 23:00 Acetaminophen/ Hydrocodone Bitart ([place] (5/325)) 2 tab Q4H PRN PO PAIN 6-8 Last administered on 12/11/16 12:32; Admin Dose 2 TAB; Start 12/08/16 at 23:00 Morphine Sulfate (morphine) 2 mg Q3H PRN IV PAIN 9-10 Last administered on 12/11 08:32; Admin Dose 2 MG; Start 12/08/16 at 23:00 Diagnostic Test (Pha) (Accucheck) 1 ea Q12 XX ; Start 12/09/16 at 09:00 Diagnostic Test (Pha) (Accucheck) 1 ea 02 XX ; Start 12/10/16 at 02:00 Hydralazine HCl (Apresoline) 10 mg Q4H PRN IV SBP greater than 160 Last administered on 12/11/16 10:35; Admin Dose 10 MG; Start 12/09/16 at 01:00 Leflunomide (Arava) 20 mg DAILY PO Last administered on 12/11/16 08:39; Admin Dose 20 MG; Start 12/10/16 at 09:00 Lactobacillus Acidoph/Bulgaricus (Floranex) 1 tab BID PO Last administered on 08:40; Admin Dose 1 TAB; Start 12/10/16 at 21:00 Nifedipine (Procardia Xl) 60 mg BID PO Last administered on 12/11/16 08:40; Admin Dose 60 MG; Start 12/10/16 at 21:00 Famotidine (Pepcid) 20 mg DAILY PO Last administered on 12/11/16 08:40; Admin Dose 20 MG; Start 12/11/16 at 09:00 Docusate Sodium (Colace) 200 mg DAILY PRN PO CONSTIPATION; Start 12/10/16 at 13 :00 Levofloxacin 500 mg 500 mg DAILY@06 PO Last administered on 12/11/16 07:03; Admin Dose 500 MG; Start 12/11/16 at 06:00 Vancomycin HCl/ Sodium Chloride (Vancocin/NS) 250 ml @ 83.333 mls/ hr Q24H IVPB Last administered on 12/11/16 12:31; Admin Dose 83.333 MLS/HR; Start at 13:00 Guaifenesin (Robitussin Liquid Cup) 100 mg Q4H PRN PO COUGH Last administered on 12/11/16 00:19; Admin Dose 100 MG; Start 12/10/16 at 22:00 PEDRO ZHENG MD Dec 11, 2016 12:44
[2016-12-11] MEDS ORDERED: VANCOMYCIN 1.25 GM in SOD CHLORIDE 0.9% 250 ML IVPB SCH (13:00)
--- NOTE | 2016-12-11 14:03 | PDOCDIS ---
Discharge Instructions CONDITION Patient Condition: Good HOME CARE INSTRUCTIONS: Diet Instructions: Reduced Calorie ACTIVITY: Activity Restrictions: Slowly Increase Activity Rest between Activity Avoid heavy lifting Do not operate Machinery Do not operate Power Tool Avoid Heavy Housework Bathing Restrictions: Shower FOLLOW UP/APPOINTMENTS Appointments Dr Ty Morales - nephrology to follow; I called him. Podiatry to follow. PEDRO ZHENG MD Dec 11, 2016 14:03
--- NOTE | 2016-12-11 14:29 | CONS ---
Date/Time of Note Date/Time of Note DATE: 12/11/16 TIME: 14:27 Assessment/Plan Assessment/Plan Chief Complaint/Hosp Course MICROBIOLOGY: Wound culture growing VRE and Morganella morganii species, susceptible to Levaquin. ANTIBIOTICS: patient was started on: 1. Levaquin. 2. Zyvox PHYSICAL EXAMINATION GENERAL: An obese, well-developed, elderly man who is alert, in no distress. HEENT: Head atraumatic, normocephalic. Sclerae are anicteric. Buccal mucosa pink. NECK: Supple. CHEST: Rise symmetrical. Breath sounds clear. HEART: S1, S2. ABDOMEN: Soft, bowel tones present. EXTREMITIES: Left foot to wound VAC. ASSESSMENT 1. Left lower extremity cellulitis with osteomyelitis, status post I and D with great toe amputation. 2. Diabetes. 3. History of cerebrovascular accident. 4. History of renal transplant; on Prograf, prednisone. PLAN: The patient remains stable, on appropriate abx, pending tx to acute rehab , wound care per podiatry, will require terminologist abx. Vascular rec-s DW staff/pt/family Problems: Consultation Date/Type/Reason Admit Date/Time Dec 09, 2016 at 17:51 Initial Consult Date Type of Consultation: ID Exam/Review of Systems Vital Signs Vitals Vital Signs Date Time Temp Pulse Resp B/P Pulse Ox O2 Delivery O2 Flow Rate FiO2 12/11/16 11:51 71 168/75 12/11/16 07:55 98.0 17 100 12/09/16 15:00 Room Air 12/08/16 22:23 6.0 Intake and Output 12/10/16 12/10/16 12/11/16 15:00 23:00 07:00 Intake Total 50 ml 1410 ml 600 ml Balance 50 ml 1410 ml 600 ml Results Result Diagram: 12/11/16 0415 12/11/16 0415 Results 24 hrs Laboratory Tests Test 12/10/16 16:52 12/10/16 20:18 12/11/16 02:37 12/11/16 04:15 Bedside Glucose 267 H 226 H 102 Alanine Aminotransferase (ALT/SGPT) 20 Albumin 3.3 Albumin/Globulin Ratio 0.97 Alkaline Phosphatase 71 Anion Gap 15 Aspartate Amino Transf (AST/SGOT) 19 Basophils # 0.0 Basophils % 0.1 Blood Urea Nitrogen 18 Calcium Level 8.3 L Carbon Dioxide Level 29 Chloride Level 98 Creatinine 0.95 Direct Bilirubin 0.00 Eosinophils # 0.2 Eosinophils % 1.5 Globulin 3.40 H Glucose Level 81 # Hematocrit 37.0 L Hemoglobin 12.3 L Hemoglobin A1c 8.9 H Indirect Bilirubin 0.2 Lymphocytes # 1.2 Lymphocytes % 10.7 L Mean Corpuscular Hemoglobin 30.3 Mean Corpuscular Hemoglobin Concent 33.3 Mean Corpuscular Volume 91.1 Mean Platelet Volume 8.2 Monocytes # 0.9 Monocytes % 7.3 Neutrophils # 9.4 H Neutrophils % 80.4 H Nucleated Red Blood Cells # 0.0 Nucleated Red Blood Cells % 0.0 Platelet Count 237 Potassium Level 3.8 Red Blood Count 4.06 L Red Cell Distribution Width 13.8 Sodium Level 138 Thyroid Stimulating Hormone (TSH) 2.200 Total Bilirubin 0.2 Total Protein 6.7 White Blood Count 11.7 H Test 12/11/16 08:36 12/11/16 12:30 Bedside Glucose 102 147 Medications Medications Current Medications Ondansetron HCl (Zofran Inj) 4 mg Q6H PRN IV NAUSEA AND/OR VOMITING; Start at 22:30 Carvedilol (Coreg) 25 mg BID PO Last administered on 12/11/16 08:41; Admin Dose 25 MG; Start 12/09/16 at 09:00 Hydralazine HCl (Apresoline) 75 mg TID PO Last administered on 12/11/16 12:32 ; Admin Dose 75 MG; Start 12/09/16 at 09:00 Prednisone (Prednisone) 5 mg DAILY PO Last administered on 12/11/16 08:41; Admin Dose 5 MG; Start 12/09/16 at 09:00 Tacrolimus (Prograf) 0.5 mg BID PO Last administered on 12/11/16 08:40; Admin Dose 0.5 MG; Start 12/09/16 at 09:00 Insulin Glargine (Lantus) 25 unit HS SC Last administered on 12/10/16 20:24; Admin Dose 25 UNIT; Start 12/08/16 at 22:35 Miscellaneous Information 1 ea NOTE XX ; Start 12/08/16 at 23:00 Glucose (Glutose) 15 gm Q15M PRN PO DECREASED GLUCOSE; Start 12/08/16 at 23:00 Glucose (Glutose) 22.5 gm Q15M PRN PO DECREASED GLUCOSE; Start 12/08/16 at 23: 00 Dextrose (D50w Syringe) 25 ml Q15M PRN IV DECREASED GLUCOSE; Start 12/08/16 at 23:00 Dextrose (D50w Syringe) 50 ml Q15M PRN IV DECREASED GLUCOSE; Start 12/08/16 at 23:00 Glucagon (Glucagen) 1 mg Q15M PRN IM DECREASED GLUCOSE; Start 12/08/16 at 23:00 Glucose (Glutose) 15 gm Q15M PRN BUCCAL DECREASED GLUCOSE; Start 12/08/16 at 23 :00 Acetaminophen/ Hydrocodone Bitart ([place] (5/325)) 1 tab Q4H PRN PO PAIN LEVEL 1 -5; Start 12/08/16 at 23:00 Acetaminophen/ Hydrocodone Bitart ([place] (5/325)) 2 tab Q4H PRN PO PAIN 6-8 Last administered on 12/11/16 12:32; Admin Dose 2 TAB; Start 12/08/16 at 23:00 Morphine Sulfate (morphine) 2 mg Q3H PRN IV PAIN 9-10 Last administered on 12/11 08:32; Admin Dose 2 MG; Start 12/08/16 at 23:00 Diagnostic Test (Pha) (Accucheck) 1 ea Q12 XX ; Start 12/09/16 at 09:00 Diagnostic Test (Pha) (Accucheck) 1 ea 02 XX ; Start 12/10/16 at 02:00 Hydralazine HCl (Apresoline) 10 mg Q4H PRN IV SBP greater than 160 Last administered on 12/11/16 10:35; Admin Dose 10 MG; Start 12/09/16 at 01:00 Leflunomide (Arava) 20 mg DAILY PO Last administered on 12/11/16 08:39; Admin Dose 20 MG; Start 12/10/16 at 09:00 Lactobacillus Acidoph/Bulgaricus (Floranex) 1 tab BID PO Last administered on 08:40; Admin Dose 1 TAB; Start 12/10/16 at 21:00 Nifedipine (Procardia Xl) 60 mg BID PO Last administered on 12/11/16 08:40; Admin Dose 60 MG; Start 12/10/16 at 21:00 Famotidine (Pepcid) 20 mg DAILY PO Last administered on 12/11/16 08:40; Admin Dose 20 MG; Start 12/11/16 at 09:00 Docusate Sodium (Colace) 200 mg DAILY PRN PO CONSTIPATION; Start 12/10/16 at 13 :00 Levofloxacin (Levaquin) 500 mg DAILY@06 PO Last administered on 12/11/16 07:03 ; Admin Dose 500 MG; Start 12/11/16 at 06:00 Guaifenesin (Robitussin Liquid Cup) 100 mg Q4H PRN PO COUGH Last administered on 12/11/16 00:19; Admin Dose 100 MG; Start 12/10/16 at 22:00 Enoxaparin Sodium (Lovenox) 30 mg DAILY SC Last administered on 12/11/16 14:23 ; Admin Dose 30 MG; Start 12/11/16 at 15:00 Linezolid (Zyvox) 600 mg BID PO ; Start 12/11/16 at 21:00 BEHZAD TURNER NP Dec 11, 2016 14:29
[2016-12-11] MEDS ORDERED: ENOXAPARIN 30 MG/0.3 ML SYG SC SCH (15:00)
--- NOTE | 2016-12-11 20:02 | DS ---
DATE OF ADMISSION: 12/09/2016 DATE OF DISCHARGE: 12/11/2016 PRIMARY CARE PHYSICIAN: Unknown. CONSULTANTS: Dr. Lia Miles, Dr. Louis, Dr. Isiah Morales DIAGNOSIS ON ADMISSION: 1. Toe hallux gangrene/osteomyelitis. 2. Renal transplant status. 3. Diabetes. 4. Diabetic foot infection. HOSPITAL COURSE: This is a 66-year-old gentleman who presented from home for elective surgery for o steomyelitis and gangrene. The patient underwent amputation and wound VAC placement. Please see op erative report for complete details. Postoperative hospital course was uncomplicated. The patient has tolerated diet, pain is fairly well controlled, and he is stable and fit for discharge. Plan at this time is to continue wound care with the assistance of Podiatry and additionally wound VAC ther apy. He initially had debility and had elected to go to acute rehab, and in terms of antibiotics, jerrod zeng has VRE and morganella growing, and Dr. Louis's team will follow. I contacted Nephrology to consult on this patient next week regarding his renal transplant status. Diabetes not quite under control, A1c of 8.9. Ideally could be better. PROCEDURES: Left foot open partial hallux amputation and application of wound VAC. MICROBIOLOGY: Fungal cultures pending. AFB negative. Gram stain showing morganella and VRE. Isol ation will be maintained over there. LABORATORIES: Tacrolimus level on the is 3.2. CMP essentially unremarkable. A1c 8.9. TSH 2. 2. White cell count of 11.7, hemoglobin and hematocrit of 12 and 37, MCV 91, platelets of 237. ESR 53. MEDICATIONS: 1. Coreg 25 twice daily. 2. Clonidine 0.1 three times daily. There is potential clonidine rebound hypertension. 3. Lantus 25 at bedtime. 4. Insulin sliding scale. 5. Arava 20 mg daily. 6. Nifedipine XL 60 b.i.d. 7. Prednisone 5. 8. Tacrolimus 0.5 mg twice daily. 9. Morphine as needed. 10. [place] as needed. 11. Colace as needed. 12. Culturelle 1 capsule twice daily. 13. Linezolid 600 twice daily. 14. Levaquin 500 daily. 15. Hydralazine 10 mg IV every 4 p.r.n. elevated blood pressure. 16. Pepcid 20. Dictated By: PEDRO ROCKWELL/KIEL Conf#: [id number] DID#: [id number] CC: PAT LOUIS MD; ISIAH MORALES MD; LIA MILES DPM;*EndCC*
[2016-12-11] MEDS ORDERED: ZYVOX 600 MG TAB PO SCH (21:00)
== END 2016-12-11 16:00 | DRG 240 ==
LOC: SDS 19:09 → MS1 20:33 → OBSVTOIN 12-09 17:51
PROVIDERS: ADMIT Podiatrist Foot & Ankle Surgery; ATTEND Podiatrist Foot & Ankle Surgery
PROC: 0Y6N0Z9 Detachment at Left Foot, Partial 1st Ray, Open Approach (ICD-10-PCS; principal; 2016-12-08 21:00)
DX: E11.52 Type 2 diabetes mellitus with diabetic peripheral angiopathy with gangrene (principal); Z94.0 Kidney transplant status; E11.40 Type 2 diabetes mellitus with diabetic neuropathy, unspecified; E11.69 Type 2 diabetes mellitus with other specified complication; L03.116 Cellulitis of left lower limb; M86.8X7 Other osteomyelitis, ankle and foot; E11.65 Type 2 diabetes mellitus with hyperglycemia; Z86.73 Personal history of transient ischemic attack (TIA), and cerebral infarction without residual deficits; Z79.4 Long term (current) use of insulin; B95.2 Enterococcus as the cause of diseases classified elsewhere; Z16.21 Resistance to vancomycin; B96.89 Other specified bacterial agents as the cause of diseases classified elsewhere; Z79.52 Long term (current) use of systemic steroids
CPT/HCPCS: 71010; 80048; 80053; 80197; 82040; 82306; 82962; 83036; 84134; 84443; 85025; 85651; 86140; 87070; 87102; 87116; 88305; 93005; 97162; G0378; J0360; J0690; J1650; J1815; J2250; J2270; J2405; J3010; J3370; J7050; J7512

== ENCOUNTER 2016-12-11 16:26 | Inpatient (IN) | payer MEDICARE, OTHER ==
[~2016-12-11] VITALS: Ht 165.1 cm; Wt 85.0 kg
[~2016-12-11 16:26] MED LIST: CARV25TA97 PO; CLON-379 PO; CLONI; HYDR-3671 PO; INSU100C SQ; LANT3I SC; LEFL20TA PO; NIFE60TA11 PO; PRED5 PO; TACR0.5C18 PO
[2016-12-11 16:30] VITALS: BP 153/70; PULSE 75; RESP 18
[2016-12-11 16:49] VITALS: Ht 165.1 cm; Wt 85.0 kg
[2016-12-11] MEDS ORDERED: HYDROCODONE/APAP (5/325) TAB PO PRN ×2 (17:30)
[2016-12-11] MEDS ORDERED: GLUCOSE GEL 15 GRAM TUBE BUCCAL PRN (17:30)
[2016-12-11] MEDS ORDERED: BISACODYL 10 MG SUPP PR PRN (17:30)
[2016-12-11] MEDS ORDERED: MAGNESIUM HYDROXIDE 30ML CUP PO PRN (17:30)
[2016-12-11] MEDS ORDERED: LACTULOSE 30ML CUP PO PRN (17:30)
[2016-12-11] MEDS ORDERED: DEXTROSE 50% 50 ML SYRINGE IV PRN ×2 (17:30)
[2016-12-11] MEDS ORDERED: ACETAMINOPHEN 325 MG TAB PO PRN (17:30)
[2016-12-11] MEDS ORDERED: GLUCAGON 1 MG INJ IM PRN (17:30)
[2016-12-11] MEDS ORDERED: GLUCOSE GEL 15 GRAM TUBE PO PRN ×2 (17:30)
[2016-12-11] MEDS: INSULIN ASPART [NOVOLOG] 3 ML PEN SC SCH ×2 (17:39→21:21)
[2016-12-11] MEDS ORDERED: LEVOFLOXACIN 500 MG TAB PO ONE (18:00)
[2016-12-11] MEDS ORDERED: GUAIFENESIN 20 MG/ML 5ML CUP PO PRN (18:00)
[2016-12-11 19:42] LABS: ADD UMIC NO; URINE BILIRUBIN (Dip) NEGATIVE (NEGATIVE); URINE BLOOD (Dip) NEGATIVE (NEGATIVE); URINE COLOR LT. YELLOW (YELLOW); URINE GLUCOSE (Dip) NEGATIVE (NEGATIVE); URINE KETONES (Dip) NEGATIVE (NEGATIVE); URINE LEUKOCYTE ESTERASE (Dip) NEGATIVE (NEGATIVE); URINE NITRITE (Dip) NEGATIVE (NEGATIVE); URINE TOTAL PROTEIN (Dip) NEGATIVE (NEGATIVE); URINE UROBILINOGEN (Dip) 0.2 E.U./dL (0.1-1.0)
[2016-12-11 20:00] VITALS: BP_SYST 135; BP_SYST 155; BP_DIAS 63; BP_DIAS 74; PULSE 74; RESP 19
[2016-12-11] MEDS: NIFEdipine (XL) 60 MG TAB PO SCH (21:06)
[2016-12-11] MEDS: ZYVOX 600 MG TAB PO SCH (21:06)
[2016-12-11] MEDS: DOCUSATE SODIUM 100 MG CAP PO SCH (21:06)
[2016-12-11] MEDS: SENNA TAB PO SCH (21:07)
[2016-12-11] MEDS: LACTOBACILLUS CHEW TAB PO SCH (21:07)
[2016-12-11] MEDS: TACROLIMUS 0.5 MG CAP PO SCH (21:07)
[2016-12-11] MEDS: INSULIN GLARGINE [LANtus] 3 ML PEN SC SCH (21:20)
[2016-12-11] MEDS: HYDROCODONE/APAP (10/325) TAB PO PRN (22:39)
[2016-12-12] MEDS: morphine 2 MG INJ IV PRN ×2 (00:09→18:15)
[2016-12-12] MEDS: ACCUCHECK AT 2AM (Patients on SS coverage) XX SCH (02:16)
[2016-12-12] MEDS: LEVOFLOXACIN 500 MG TAB PO SCH (06:23)
[2016-12-12 07:30] VITALS: BP 188/86; RESP 18
[2016-12-12] MEDS: INSULIN ASPART [NOVOLOG] 3 ML PEN SC SCH ×4 (07:35→21:41)
[2016-12-12 08:04] LABS: ALBUMIN 3.2 g/dl (3.3-4.9)
[2016-12-12 08:05] LABS: POTASSIUM 3.9 mmol/L (3.5-5.1)
[2016-12-12 08:07] LABS: ALBUMIN/GLOBULIN RATIO 0.94; BILIRUBIN,INDIRECT 0.3 mg/dl (0-1.1); BILIRUBIN,TOTAL 0.3 mg/dl (0.2-1.3); CREATININE 1.01 mg/dl (0.61-1.24); TOTAL PROTEIN 6.6 g/dl (6.1-8.1)
[2016-12-12 08:08] LABS: CALCIUM 8.2 mg/dl (8.4-10.2)
[2016-12-12 08:09] LABS: BASOPHILS % 0.2 % (0.0-2.0); EOSINOPHILS # 0.1 10^3/ul (0.0-0.5); EOSINOPHILS % 0.7 % (0.0-7.0); HEMATOCRIT 36.8 % (42.0-52.0); HEMOGLOBIN 12.1 g/dl (14.0-18.0); LYMPHOCYTES # 1.1 10^3/ul (0.8-2.9); LYMPHOCYTES % 10.8 % (15.0-51.0); MEAN CORPUSCULAR HGB CONC 32.9 g/dl (32.0-37.0); MEAN CORPUSCULAR VOLUME 91.1 fl (82.0-101.0); MEAN PLATELET VOLUME 8.2 fl (7.4-10.4); MONOCYTE # 0.8 10^3/ul (0.3-0.9); MONOCYTES % 8.1 % (0.0-11.0); NEUTROPHIL # 8.2 10^3/ul (1.6-7.5); NEUTROPHILS % 80.2 % (39.0-77.0); PLATELET COUNT 216 10^3/UL (140-440); RED BLOOD COUNT 4.04 10^6/ul (4.70-6.10); RED CELL DISTRIBUTION WIDTH 13.8 % (11.5-14.5); UNCORRECTED WBC 10.3 10^3/ul (4.8-10.8); WHITE BLOOD COUNT 10.3 10^3/ul (4.8-10.8)
[2016-12-12 08:17] LABS: CONDITION 1
[2016-12-12] MEDS: TACROLIMUS 0.5 MG CAP PO SCH ×2 (08:33→21:38)
[2016-12-12] MEDS: NIFEdipine (XL) 60 MG TAB PO SCH ×2 (08:33→21:35)
[2016-12-12] MEDS: ZYVOX 600 MG TAB PO SCH ×2 (08:33→21:35)
[2016-12-12] MEDS: FAMOTIDINE 20 MG TAB PO SCH (08:34)
[2016-12-12] MEDS: LEFLUNOMIDE 10 MG TAB PO SCH (08:34)
[2016-12-12] MEDS: DOCUSATE SODIUM 100 MG CAP PO SCH ×2 (08:34→21:38)
[2016-12-12] MEDS: LACTOBACILLUS CHEW TAB PO SCH ×2 (08:34→21:35)
[2016-12-12] MEDS: predniSONE 5 MG TAB PO SCH (08:35)
[2016-12-12] MEDS: ENOXAPARIN 30 MG/0.3 ML SYG SC SCH (08:39)
--- NOTE | 2016-12-12 12:10 | CONS ---
DATE OF ADMISSION: 12/11/2016 DATE OF CONSULTATION: 12/12/2016 REHABILITATION POST ADMISSION PHYSICIAN EVALUATION REHABILITATION IMPAIRMENT CATEGORY: Other orthopedic injury with left first toe amputation secondary to osteomyelitis. ACTIVE COMORBIDITIES: 1. Diabetes mellitus. 2. Diabetic neuropathy. 3. 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 4. End-stage renal disease with history of transplant. 5. Impairments in self-care and mobility. HISTORY OF PRESENT ILLNESS: The patient is a very pleasant 66-year-old gentleman with a history of multiple medical comorbidities. He was noted to have significant osteomyelitis of the left great toe with gangrene and cellulitis. The patient ultimately underwent left great toe amputation with placement of wound VAC. The patient's notable significant impairments in self- care and mobility as compared to baseline and has been cleared to transfer to the rehabilitation unit for comprehensive interdisciplinary rehab care. FUNCTIONAL HISTORY: Prior to recent events, he was independent in self-care tasks and mobility. Currently, the patient requires moderate assist for self- care and mobility tasks. I have reviewed the preadmission screen and the patient's current functional status is consistent with the preadmission screen. SOCIAL HISTORY: The patient reports living at home with his and hopes to return there upon discharge. PAST MEDICAL HISTORY: 1. Diabetes mellitus type 2. 2. Hypertension. 3. Cerebrovascular accident with residual right-sided weakness. 4. Vitamin D deficiency. 5. Hyperlipidemia. 6. BPH. 7. End-stage renal disease with history of kidney transplant. CURRENT MEDICATIONS: 1. Coreg 25 mg p.o. b.i.d. 2. Insulin sliding scale. 3. Lovenox 30 mg subcutaneous daily. 4. Pepcid 20 mg p.o. daily. 5. Apresoline 75 mg p.o. t.i.d. 6. [place] p.r.n. 7. Lantus 25 units subQ at bedtime. 8. Arava 20 mg p.o. daily. 9. Levaquin 500 mg p.o. daily. 10. Zyvox 600 mg p.o. b.i.d. 11. Procardia-XL 60 mg b.i.d. 12. Prednisone 5 mg p.o. daily. 13. Prograf 0.5 mg p.o. b.i.d. ALLERGIES: THE PATIENT WITH NO KNOWN DRUG ALLERGIES. PHYSICAL EXAMINATION: VITAL SIGNS: The patient is currently afebrile with stable vital signs. HEENT: Extraocular motion intact. Oropharynx clear. NECK: Supple. LUNGS: Clear anteriorly. CARDIAC: S1, S2. ABDOMEN: Soft, nontender, positive bowel sounds. EXTREMITIES: Exam does reveal left great toe amputation with wound VAC in place. NEUROLOGIC: He is awake, alert and oriented x3, can follow simple 1-step commands. Cranial nerves are grossly intact. He has good strength in bilateral upper extremity and right lower extremity. Dorsiflexion and plantar flexion intact on the left. PLAN: The patient has been admitted for comprehensive interdisciplinary acute rehab and is anticipated to tolerate 3 hours of daily therapy in divided doses for at least 5/7 days a week. Treatment plan will include: 1. Physical therapy to focus on bed mobility, transfers, and household ambulation with the goal of having the patient reach standby assist level. 2. Occupational therapy to focus on hygiene, grooming, dressing, bathing, and toileting activities with goal of having patient reach standby assist level. 3. Rehabilitation nursing for carryover of therapeutic interventions, the goal of continent, and the goal of skin integrity to continue to improve and patient and family education with regard to the aforementioned issues. REHABILITATION BARRIER: Skin integrity. INTERVENTION FOR BARRIER: Wound care. ESTIMATED LENGTH OF STAY: 10 days. DISPOSITION GOAL: Home. I acknowledge that I have performed a full physical examination on this patient within 24 hours of admission to the rehabilitation unit. I believe the patient is a good candidate for comprehensive interdisciplinary rehab care and is anticipated to make reasonable goals in a reasonable period of time as outlined above. Dictated By: ENRICO GARNETT/KIEL Conf#: [id number] DID#: [id number] [id number]
--- NOTE | 2016-12-12 12:48 | CONS ---
Date/Time of Note Date/Time of Note DATE: 12/12/16 TIME: 12:40 Consult Date/Type/Reason Admit Date/Time Dec 11, 2016 at 16:26 Initial Consult Date nov, Reason for Consultation renal transplant, hypertension Subjective s/p amputation lt big toe, no other complaints Objective chest clear, cvs s1 s2 no murmurs abdomen soft supple, no edema lower extremities awake, alert discussed through family member present, pt speaks only iranian Vital Signs Date Time Temp Pulse Resp B/P Pulse Ox O2 Delivery O2 Flow Rate FiO2 12/12/16 07:30 98.2 70 18 188/86 96 12/11/16 16:30 Room Air Intake and Output 12/11/16 12/11/16 12/12/16 15:00 23:00 07:00 Output Total 200 ml 300 ml Balance -200 ml -300 ml Results/Medications Result Diagram: 12/12/16 0635 12/12/16 0635 Results 24 hrs Laboratory Tests Test 12/11/16 17:00 12/11/16 17:36 12/11/16 20:01 12/12/16 02:12 Urine Bilirubin NEGATIVE Urine Clarity CLEAR Urine Color LT. YELLOW Urine Glucose NEGATIVE Urine Hemoglobin NEGATIVE Urine Ketones NEGATIVE Urine Leukocyte Esterase NEGATIVE Urine Nitrite NEGATIVE Urine Specific [place] 1.015 Urine Total Protein NEGATIVE Urine Urobilinogen 0.2 E.U./dL Urine pH 6.5 Bedside Glucose 211 217 175 Test 12/12/16 06:35 12/12/16 07:45 12/12/16 12:04 Alanine Aminotransferase (ALT/SGPT) 20 Albumin 3.2 L Albumin/Globulin Ratio 0.94 Alkaline Phosphatase 70 Anion Gap 12 Aspartate Amino Transf (AST/SGOT) 17 Basophils # 0.0 Basophils % 0.2 Blood Urea Nitrogen 17 Calcium Level 8.2 L Carbon Dioxide Level 28 Chloride Level 101 Creatinine 1.01 Direct Bilirubin 0.00 Eosinophils # 0.1 Eosinophils % 0.7 Globulin 3.40 H Glucose Level 121 # Hematocrit 36.8 L Hemoglobin 12.1 L Indirect Bilirubin 0.3 Lymphocytes # 1.1 Lymphocytes % 10.8 L Mean Corpuscular Hemoglobin 30.0 Mean Corpuscular Hemoglobin Concent 32.9 Mean Corpuscular Volume 91.1 Mean Platelet Volume 8.2 Monocytes # 0.8 Monocytes % 8.1 Neutrophils # 8.2 H Neutrophils % 80.2 H Nucleated Red Blood Cells # 0.0 Nucleated Red Blood Cells % 0.0 Platelet Count 216 Potassium Level 3.9 Red Blood Count 4.04 L Red Cell Distribution Width 13.8 Sodium Level 137 Total Bilirubin 0.3 Total Protein 6.6 White Blood Count 10.3 Bedside Glucose 126 215 Medications Current Medications Docusate Sodium (Colace) 100 mg BID PO Last administered on 12/12/16 08:34; Admin Dose 100 MG; Start 12/11/16 at 21:00 Senna (Senokot) 1 tab HS PO Last administered on 12/11/16 21:07; Admin Dose 1 TAB; Start 12/11/16 at 21:00 Acetaminophen (Tylenol Tab) 650 mg Q4H PRN PO PAIN; Start 12/11/16 at 17:30 Bisacodyl (Dulcolax Supp) 10 mg DAILY PRN [place] CONSTIPATION; Start 12/11/16 at 17 :30 Magnesium Hydroxide (Milk Of Mag) 30 ml BID PRN PO CONSTIPATION; Start at 17:30 Lactulose (Enulose) 20 gm DAILY PRN PO CONSTIPATION Last administered on 08:32; Admin Dose 20 GM; Start 12/11/16 at 17:30 Miscellaneous Information 1 ea NOTE XX ; Start 12/11/16 at 17:30 Glucose (Glutose) 15 gm Q15M PRN PO DECREASED GLUCOSE; Start 12/11/16 at 17:30 Glucose (Glutose) 22.5 gm Q15M PRN PO DECREASED GLUCOSE; Start 12/11/16 at 17: 30 Dextrose (D50w Syringe) 25 ml Q15M PRN IV DECREASED GLUCOSE; Start 12/11/16 at 17:30 Dextrose (D50w Syringe) 50 ml Q15M PRN IV DECREASED GLUCOSE; Start 12/11/16 at 17:30 Glucagon (Glucagen) 1 mg Q15M PRN IM DECREASED GLUCOSE; Start 12/11/16 at 17:30 Glucose (Glutose) 15 gm Q15M PRN BUCCAL DECREASED GLUCOSE; Start 12/11/16 at 17 :30 Hydralazine HCl (Apresoline) 75 mg TID PO Last administered on 12/12/16 12:20 ; Admin Dose 75 MG; Start 12/11/16 at 21:00 Prednisone (Prednisone) 5 mg DAILY PO Last administered on 12/12/16 08:35; Admin Dose 5 MG; Start 12/12/16 at 09:00 Tacrolimus (Prograf) 0.5 mg BID PO Last administered on 12/12/16 08:33; Admin Dose 0.5 MG; Start 12/11/16 at 21:00 Insulin Glargine (Lantus) 25 unit HS SC Last administered on 12/11/16 21:20; Admin Dose 25 UNIT; Start 12/11/16 at 21:00 Morphine Sulfate (morphine) 2 mg Q3H PRN IV PAIN 9-10 Last administered on 12/12 00:09; Admin Dose 2 MG; Start 12/11/16 at 17:30 Hydralazine HCl (Apresoline) 10 mg Q4H PRN IV SBP greater than 160; Start 12/11 at 17:30 Leflunomide (Arava) 20 mg DAILY PO Last administered on 12/12/16 08:34; Admin Dose 20 MG; Start 12/12/16 at 09:00 Lactobacillus Acidoph/Bulgaricus (Floranex) 1 tab BID PO Last administered on 08:34; Admin Dose 1 TAB; Start 12/11/16 at 21:00 Nifedipine (Procardia Xl) 60 mg BID PO Last administered on 12/12/16 08:33; Admin Dose 60 MG; Start 12/11/16 at 21:00 Famotidine (Pepcid) 20 mg DAILY PO Last administered on 12/12/16 08:34; Admin Dose 20 MG; Start 12/12/16 at 09:00 Guaifenesin (Robitussin Liquid Cup) 100 mg Q4H PRN PO COUGH; Start 12/11/16 at 18:00 Enoxaparin Sodium (Lovenox) 30 mg DAILY SC Last administered on 12/12/16 08:39 ; Admin Dose 30 MG; Start 12/12/16 at 09:00 Linezolid (Zyvox) 600 mg BID PO Last administered on 12/12/16 08:33; Admin Dose 600 MG; Start 12/11/16 at 21:00 Diagnostic Test (Pha) (Accucheck) 1 ea 02 XX Last administered on 12/12/16 02: 16; Admin Dose 1 EA; Start 12/12/16 at 02:00 Levofloxacin (Levaquin) 500 mg DAILY@06 PO Last administered on 12/12/16 06:23 ; Admin Dose 500 MG; Start 12/12/16 at 06:00 Carvedilol (Coreg) 25 mg BID PO Last administered on 12/12/16 08:35; Admin Dose 25 MG; Start 12/11/16 at 21:00 Clonidine (Catapres) 0.1 mg TID PO Last administered on 12/12/16 12:20; Admin Dose 0.1 MG; Start 12/11/16 at 21:00 Acetaminophen/ Hydrocodone Bitart ([place] (10)) 1 tab Q4H PRN PO PAIN Last administered on 12/11/16 22:39; Admin Dose 1 TAB; Start 12/11/16 at 21:00 Assessment/Plan Chief Complaint/Hosp Course renal tx 2 years hypertension iddm h/o cva post ltbig toe amputation Problems: Additional Assessment/Plan continue current rx, lipids 25 ohd level LUANA DAVIS MD Dec 12, 2016 12:48
[2016-12-12 13:47] LABS: CHOL/HDL RATIO 6.5 RATIO
[2016-12-12] MEDS: HYDROCODONE/APAP (10/325) TAB PO PRN ×2 (14:55→21:39)
--- NOTE | 2016-12-12 16:20 | CONS ---
Date/Time of Note Date/Time of Note DATE: 12/12/16 TIME: 16:19 Assessment/Plan Assessment/Plan Chief Complaint/Hosp Course No acute events, tx to acute rehab, awake, denies pain, nad, no fevers MICROBIOLOGY: Wound culture growing VRE and Morganella morganii species, susceptible to Levaquin. ANTIBIOTICS: 1. Levaquin. 2. Zyvox PHYSICAL EXAMINATION GENERAL: An obese, well-developed, elderly man who is alert, in no distress. HEENT: Head atraumatic, normocephalic. Sclerae are anicteric. Buccal mucosa pink. NECK: Supple. CHEST: Rise symmetrical. Breath sounds clear. HEART: S1, S2. ABDOMEN: Soft, bowel tones present. EXTREMITIES: Left foot to wound VAC. ASSESSMENT 1. Left lower extremity cellulitis with osteomyelitis, status post I and D with great toe amputation. 2. Diabetes. 3. History of cerebrovascular accident. 4. History of renal transplant; on Prograf, prednisone. PLAN: The patient remains stable, continue abx, wound care per podiatry, will require skilled nursing abx. DW staff Problems: Consultation Date/Type/Reason Admit Date/Time Dec 11, 2016 at 16:26 Initial Consult Date Type of Consultation: id Exam/Review of Systems Vital Signs Vitals Vital Signs Date Time Temp Pulse Resp B/P Pulse Ox O2 Delivery O2 Flow Rate FiO2 12/12/16 07:30 98.2 70 18 188/86 96 12/11/16 16:30 Room Air Intake and Output 12/11/16 12/11/16 12/12/16 15:00 23:00 07:00 Output Total 200 ml 300 ml Balance -200 ml -300 ml Results Result Diagram: 12/12/16 0635 12/12/16 0635 Results 24 hrs Laboratory Tests Test 12/11/16 17:00 12/11/16 17:36 12/11/16 20:01 12/12/16 02:12 Urine Bilirubin NEGATIVE Urine Clarity CLEAR Urine Color LT. YELLOW Urine Glucose NEGATIVE Urine Hemoglobin NEGATIVE Urine Ketones NEGATIVE Urine Leukocyte Esterase NEGATIVE Urine Nitrite NEGATIVE Urine Specific [place] 1.015 Urine Total Protein NEGATIVE Urine Urobilinogen 0.2 E.U./dL Urine pH 6.5 Bedside Glucose 211 217 175 Test 12/12/16 06:35 12/12/16 07:45 12/12/16 12:04 Alanine Aminotransferase (ALT/SGPT) 20 Albumin 3.2 L Albumin/Globulin Ratio 0.94 Alkaline Phosphatase 70 Anion Gap 12 Aspartate Amino Transf (AST/SGOT) 17 Basophils # 0.0 Basophils % 0.2 Blood Urea Nitrogen 17 Calcium Level 8.2 L Carbon Dioxide Level 28 Chloride Level 101 Cholesterol Level 151 Cholesterol/HDL Ratio 6.5 Creatinine 1.01 Direct Bilirubin 0.00 Eosinophils # 0.1 Eosinophils % 0.7 Globulin 3.40 H Glucose Level 121 # HDL Cholesterol 23 L Hematocrit 36.8 L Hemoglobin 12.1 L Indirect Bilirubin 0.3 LDL Cholesterol, Calculated 105 Lymphocytes # 1.1 Lymphocytes % 10.8 L Mean Corpuscular Hemoglobin 30.0 Mean Corpuscular Hemoglobin Concent 32.9 Mean Corpuscular Volume 91.1 Mean Platelet Volume 8.2 Monocytes # 0.8 Monocytes % 8.1 Neutrophils # 8.2 H Neutrophils % 80.2 H Nucleated Red Blood Cells # 0.0 Nucleated Red Blood Cells % 0.0 Platelet Count 216 Potassium Level 3.9 Red Blood Count 4.04 L Red Cell Distribution Width 13.8 Sodium Level 137 Total Bilirubin 0.3 Total Protein 6.6 Triglycerides Level 115 White Blood Count 10.3 Bedside Glucose 126 215 Medications Medications Current Medications Docusate Sodium (Colace) 100 mg BID PO Last administered on 12/12/16 08:34; Admin Dose 100 MG; Start 12/11/16 at 21:00 Senna (Senokot) 1 tab HS PO Last administered on 12/11/16 21:07; Admin Dose 1 TAB; Start 12/11/16 at 21:00 Acetaminophen (Tylenol Tab) 650 mg Q4H PRN PO PAIN; Start 12/11/16 at 17:30 Bisacodyl (Dulcolax Supp) 10 mg DAILY PRN [place] CONSTIPATION; Start 12/11/16 at 17 :30 Magnesium Hydroxide (Milk Of Mag) 30 ml BID PRN PO CONSTIPATION; Start at 17:30 Lactulose (Enulose) 20 gm DAILY PRN PO CONSTIPATION Last administered on 08:32; Admin Dose 20 GM; Start 12/11/16 at 17:30 Miscellaneous Information 1 ea NOTE XX ; Start 12/11/16 at 17:30 Glucose (Glutose) 15 gm Q15M PRN PO DECREASED GLUCOSE; Start 12/11/16 at 17:30 Glucose (Glutose) 22.5 gm Q15M PRN PO DECREASED GLUCOSE; Start 12/11/16 at 17: 30 Dextrose (D50w Syringe) 25 ml Q15M PRN IV DECREASED GLUCOSE; Start 12/11/16 at 17:30 Dextrose (D50w Syringe) 50 ml Q15M PRN IV DECREASED GLUCOSE; Start 12/11/16 at 17:30 Glucagon (Glucagen) 1 mg Q15M PRN IM DECREASED GLUCOSE; Start 12/11/16 at 17:30 Glucose (Glutose) 15 gm Q15M PRN BUCCAL DECREASED GLUCOSE; Start 12/11/16 at 17 :30 Prednisone (Prednisone) 5 mg DAILY PO Last administered on 12/12/16 08:35; Admin Dose 5 MG; Start 12/12/16 at 09:00 Tacrolimus (Prograf) 0.5 mg BID PO Last administered on 12/12/16 08:33; Admin Dose 0.5 MG; Start 12/11/16 at 21:00 Insulin Glargine (Lantus) 25 unit HS SC Last administered on 12/11/16 21:20; Admin Dose 25 UNIT; Start 12/11/16 at 21:00 Morphine Sulfate (morphine) 2 mg Q3H PRN IV PAIN 9-10 Last administered on 12/12 00:09; Admin Dose 2 MG; Start 12/11/16 at 17:30 Hydralazine HCl (Apresoline) 10 mg Q4H PRN IV SBP greater than 160; Start 12/11 at 17:30 Leflunomide (Arava) 20 mg DAILY PO Last administered on 12/12/16 08:34; Admin Dose 20 MG; Start 12/12/16 at 09:00 Lactobacillus Acidoph/Bulgaricus (Floranex) 1 tab BID PO Last administered on 08:34; Admin Dose 1 TAB; Start 12/11/16 at 21:00 Nifedipine (Procardia Xl) 60 mg BID PO Last administered on 12/12/16 08:33; Admin Dose 60 MG; Start 12/11/16 at 21:00 Famotidine (Pepcid) 20 mg DAILY PO Last administered on 12/12/16 08:34; Admin Dose 20 MG; Start 12/12/16 at 09:00 Guaifenesin (Robitussin Liquid Cup) 100 mg Q4H PRN PO COUGH; Start 12/11/16 at 18:00 Enoxaparin Sodium (Lovenox) 30 mg DAILY SC Last administered on 12/12/16 08:39 ; Admin Dose 30 MG; Start 12/12/16 at 09:00 Linezolid (Zyvox) 600 mg BID PO Last administered on 12/12/16 08:33; Admin Dose 600 MG; Start 12/11/16 at 21:00 Diagnostic Test (Pha) (Accucheck) 1 ea 02 XX Last administered on 12/12/16 02: 16; Admin Dose 1 EA; Start 12/12/16 at 02:00 Levofloxacin (Levaquin) 500 mg DAILY@06 PO Last administered on 12/12/16 06:23 ; Admin Dose 500 MG; Start 12/12/16 at 06:00 Carvedilol (Coreg) 25 mg BID PO Last administered on 12/12/16 08:35; Admin Dose 25 MG; Start 12/11/16 at 21:00 Clonidine (Catapres) 0.1 mg TID PO Last administered on 12/12/16 12:20; Admin Dose 0.1 MG; Start 12/11/16 at 21:00 Acetaminophen/ Hydrocodone Bitart ([place] (10/325)) 1 tab Q4H PRN PO PAIN Last administered on 12/12/16 14:55; Admin Dose 1 TAB; Start 12/11/16 at 21:00 Hydralazine HCl (Apresoline) 100 mg TID PO ; Start 12/12/16 at 21:00 BEHZAD TURNER NP Dec 12, 2016 16:20
--- NOTE | 2016-12-12 18:24 | CONS ---
DATE OF ADMISSION: 12/11/2016 DATE OF CONSULTATION: 12/12/2016 REASON FOR CONSULTATION: Medical management during course of acute rehabilitation. HISTORY OF PRESENT ILLNESS: This is a 66-year-old gentleman with past medical history of diabetes m ellitus, CVA, kidney transplant, left foot gangrene who is status post left foot open partial hallux amputation and application of wound VAC. Was admitted to [facility] on 7 and was seen and evaluated by podiatry and infectious disease. The patient after having left foot open partial hallux amputation and amputation of wound VAC on 12/08/2016, continued on IV antibioti cs was then accepted to acute rehab for further evaluation and physical therapy and wound care. At this time, patient denies having any chest pain, shortness of breath, nausea, vomiting, diarrhea. N o headache, dizziness, lightheadedness. No change in visual acuity, diplopia, photophobia. Tolerat ing oral intake without any difficulty. The patient, this morning, has been seen and evaluated by n ephrology secondary to his history of kidney transplant. PAST MEDICAL AND SURGICAL HISTORY: As above per HPI. MEDICATIONS: 1. Tylenol. 2. Dulcolax suppository. 3. Coreg. 4. Clonidine. 5. Insulin sliding scale. 6. Colace. 7. Lovenox. 8. Famotidine. 9. Robitussin. 10. Hydralazine p.r.n. 11. Hydralazine scheduled. 12. [place]. 13. Lantus 22 units. 14. Lactobacillus. 15. Lactulose. 16. Arava. 17. Levaquin. 18. Zyvox. 19. Milk of magnesia. 20. Morphine. 21. ____. 22. Prednisone. 23. Senna. 24. Prograf. ALLERGIES: NO KNOWN DRUG ALLERGIES. FAMILY HISTORY: Positive for diabetes mellitus, hypertension, peripheral vascular disease. SOCIAL HISTORY: History of smoking and alcohol. At this time, the patient is not using any alcohol or smoking. No illicit drugs. REVIEW OF SYSTEMS: As above per HPI, otherwise 12 review of systems found to be negative. PHYSICAL EXAMINATION: VITAL SIGNS: Temperature 98.2, pulse 70, respiration 18, blood pressure 188/86 and 135/63, oxygen 9 5% in room air. GENERAL APPEARANCE: The patient is lying in bed comfortably without any distress. He is awake, rossi rt, oriented. He is able to answer my questions properly. EYES AND EARS, NOSE, THROAT: Conjunctivae and lids are normal. Pupils are normal. Extraocular mov ements normal. Hearing grossly normal. Lips, teeth, and gums are normal. Oral mucosa is moist. NECK: Supple. Trachea is midline. No lymphadenopathy. RESPIRATORY: Effort is normal. Clear to auscultation bilaterally. CARDIOVASCULAR: Normal S1, S2. Regular rhythm and rate. No murmur, no bruits, no edema. Peripher al pulses, radial pulses palpable. Cap refill is normal. CHEST: Normal expansion of thorax during inspiration. GASTROINTESTINAL: Abdomen is soft, nontender, not distended. Bowel sounds present. No guarding, n o rebound. GENITOURINARY: Deferred. MUSCULOSKELETAL: Upper extremities are within normal limits. Lower extremities: Right lower extre mity within normal limits. Left lower extremity: The patient is status post amputation of the grea t toe and has a wound VAC. NEUROLOGIC: Cranial nerves II through XII are grossly intact. PSYCHIATRIC: Normal judgment and insight. Alert and oriented x3. Mood and affect is normal. LABORATORY WORK: WBC 10.3, hemoglobin 12.1, hematocrit 36.8, platelets 216. Sodium 137, potassium 3.9, chloride 101, bicarbonate 28, BUN 17, creatinine 1.01, glucose 121. LFTs all within normal marquez its. Triglyceride 150, total cholesterol 151, LDL 105, HDL 23. ASSESSMENT AND PLAN 1. Left foot toe gangrene status post left foot open partial hallux amputation and status post appl ication of wound VAC. Continue IV antibiotics. 2. Cellulitis, as above. 3. Diabetes mellitus type 2. Continue Lantus, insulin sliding scale, and low carb diet. 4. History of kidney transplant. Nephrology has been consulted. Continue Prograf and steroids. 5. Essential hypertension. Continue Coreg, nifedipine, and clonidine. Continue to monitor. 6. For deep venous thrombosis prophylaxis, on Lovenox. 7. For gastrointestinal prophylaxis, on Pepcid. 8. We will continue to monitor patient closely. Further recommendations, management, and treatment as per clinical course. Dictated By: ALVIN STANFORD/KIEL Conf#: [id number] DID#: [id number] CC: ENRICO HENDERSON MD;*[facility]*
[2016-12-12 20:16] VITALS: BP 174/79; RESP 18
[2016-12-12] MEDS ORDERED: SILVER SULFADIAZINE 1% 400 GM CR TOP SCH (21:00)
[2016-12-12] MEDS: SILVER SULFADIAZINE 1% 50 GM CR TOP SCH (21:00)
[2016-12-12 21:30] VITALS: BP 182/79; PULSE 75; RESP 18
[2016-12-12] MEDS: SENNA TAB PO SCH (21:38)
[2016-12-12] MEDS: INSULIN GLARGINE [LANtus] 3 ML PEN SC SCH (21:41)
--- NOTE | 2016-12-12 22:53 | CONS ---
DATE OF ADMISSION: 12/11/2016 DATE OF CONSULTATION: 12/12/2016 SUBJECTIVE FINDINGS: The patient being seen postoperatively for left great toe partial amputation. The patient admitted in acute rehab to assist with mobility. The patient has a history of stroke w ith right-sided weakness and impairment. The patient currently on antibiotics for osteomyelitis. OBJECTIVE FINDINGS: VITAL SIGNS: Temperature 98.2, pulse 70, respiratory rate 18, blood pressure is 188/86, pulse oxime try is 96% on room air. GENERAL: The patient alert, oriented. No acute distress. HEAD: Atraumatic, normocephalic. EXTREMITIES: Left foot with wound VAC. VAC removed. The patient with partial left hallux amputati on, bone exposed. Proximal hallux as well as dorsal aspect of foot with cyanosis and slight malodor . VAC drainage minimal. ASSESSMENT: 1. Left lower extremity cellulitis with osteomyelitis, status post incision and drainage with parti al amputation of toe. 2. Diabetes. 3. Peripheral arterial disease. 4. History of renal transplant, on Prograf, prednisone. PLAN: Recommend discontinuation of wound VAC. Recommend b.i.d. application of Silvadene. The gaviota ent with persistent cyanosis. Prognosis is poor to guarded. The patient has been seen by Vascular in the perioperative period and no intervention recommended. The patient will need long-term antibi otics and will continue to follow. Plan further debridements. Recommend protecting heels as patien t at risk for decubitus ulcerations. Dictated By: LIA OSHEA/KIEL Conf#: [id number] DID#: [id number]
[2016-12-12 23:30] VITALS: BP 160/77; PULSE 76; RESP 18
[2016-12-13] MEDS: ACCUCHECK AT 2AM (Patients on SS coverage) XX SCH (02:00)
[2016-12-13 02:27] VITALS: BP 171/74; PULSE 72; RESP 18
[2016-12-13] MEDS: hydrALAzine 20 MG INJ IV PRN (02:27)
[2016-12-13 03:30] VITALS: BP 149/72; PULSE 70; RESP 17
[2016-12-13] MEDS: LEVOFLOXACIN 500 MG TAB PO SCH (06:31)
[2016-12-13] MEDS: INSULIN ASPART [NOVOLOG] 3 ML PEN SC SCH ×4 (07:35→21:20)
[2016-12-13 07:51] VITALS: BP 168/71; RESP 18
[2016-12-13 08:00] VITALS: BP 168/71; PULSE 71; RESP 18
[2016-12-13] MEDS: FAMOTIDINE 20 MG TAB PO SCH (08:09)
[2016-12-13] MEDS: predniSONE 5 MG TAB PO SCH (08:09)
[2016-12-13] MEDS: ZYVOX 600 MG TAB PO SCH ×2 (08:10→21:11)
[2016-12-13] MEDS: TACROLIMUS 0.5 MG CAP PO SCH ×2 (08:10→21:10)
[2016-12-13] MEDS: DOCUSATE SODIUM 100 MG CAP PO SCH ×2 (08:10→21:09)
[2016-12-13] MEDS: LACTOBACILLUS CHEW TAB PO SCH ×2 (08:10→21:09)
[2016-12-13] MEDS: NIFEdipine (XL) 60 MG TAB PO SCH ×2 (08:10→21:11)
[2016-12-13] MEDS: ENOXAPARIN 30 MG/0.3 ML SYG SC SCH (08:13)
[2016-12-13] MEDS: SILVER SULFADIAZINE 1% 50 GM CR TOP SCH ×2 (08:14→21:24)
--- NOTE | 2016-12-13 11:41 | CONS ---
Date/Time of Note Date/Time of Note DATE: 12/13/16 TIME: 11:38 Consult Date/Type/Reason Admit Date/Time Dec 11, 2016 at 16:26 Initial Consult Date Type of Consultation: id Subjective patient feeling better Objective Vital Signs Date Time Temp Pulse Resp B/P Pulse Ox O2 Delivery O2 Flow Rate FiO2 12/13/16 08:00 98.2 71 18 168/71 96 Room Air Intake and Output 12/12/16 12/12/16 12/13/16 14:59 22:59 06:59 Intake Total 680 ml 800 ml Output Total 300 ml 620 ml 800 ml Balance -300 ml 60 ml 0 ml Pulm- CTA min transfer Results/Medications Result Diagram: 12/12/16 0635 12/12/16 0635 Results 24 hrs Laboratory Tests Test 12/12/16 12:04 12/12/16 17:14 12/12/16 21:31 12/13/16 02:11 Bedside Glucose 215 180 251 H 170 Test 12/13/16 07:30 Bedside Glucose 115 Medications Current Medications Docusate Sodium (Colace) 100 mg BID PO Last administered on 12/13/16 08:10; Admin Dose 100 MG; Start 12/11/16 at 21:00 Senna (Senokot) 1 tab HS PO Last administered on 12/12/16 21:38; Admin Dose 1 TAB; Start 12/11/16 at 21:00 Acetaminophen (Tylenol Tab) 650 mg Q4H PRN PO PAIN; Start 12/11/16 at 17:30 Bisacodyl (Dulcolax Supp) 10 mg DAILY PRN [place] CONSTIPATION; Start 12/11/16 at 17 :30 Magnesium Hydroxide (Milk Of Mag) 30 ml BID PRN PO CONSTIPATION; Start at 17:30 Lactulose (Enulose) 20 gm DAILY PRN PO CONSTIPATION Last administered on 08:32; Admin Dose 20 GM; Start 12/11/16 at 17:30 Miscellaneous Information 1 ea NOTE XX ; Start 12/11/16 at 17:30 Glucose (Glutose) 15 gm Q15M PRN PO DECREASED GLUCOSE; Start 12/11/16 at 17:30 Glucose (Glutose) 22.5 gm Q15M PRN PO DECREASED GLUCOSE; Start 12/11/16 at 17: 30 Dextrose (D50w Syringe) 25 ml Q15M PRN IV DECREASED GLUCOSE; Start 12/11/16 at 17:30 Dextrose (D50w Syringe) 50 ml Q15M PRN IV DECREASED GLUCOSE; Start 12/11/16 at 17:30 Glucagon (Glucagen) 1 mg Q15M PRN IM DECREASED GLUCOSE; Start 12/11/16 at 17:30 Glucose (Glutose) 15 gm Q15M PRN BUCCAL DECREASED GLUCOSE; Start 12/11/16 at 17 :30 Prednisone (Prednisone) 5 mg DAILY PO Last administered on 12/13/16 08:09; Admin Dose 5 MG; Start 12/12/16 at 09:00 Tacrolimus (Prograf) 0.5 mg BID PO Last administered on 12/13/16 08:10; Admin Dose 0.5 MG; Start 12/11/16 at 21:00 Insulin Glargine (Lantus) 25 unit HS SC Last administered on 12/12/16 21:41; Admin Dose 25 UNIT; Start 12/11/16 at 21:00 Morphine Sulfate (morphine) 2 mg Q3H PRN IV PAIN 9-10 Last administered on 12/12 18:15; Admin Dose 2 MG; Start 12/11/16 at 17:30 Hydralazine HCl (Apresoline) 10 mg Q4H PRN IV SBP greater than 160 Last administered on 12/13/16 02:27; Admin Dose 10 MG; Start 12/11/16 at 17:30 Leflunomide (Arava) 20 mg DAILY PO Last administered on 12/12/16 08:34; Admin Dose 20 MG; Start 12/12/16 at 09:00 Lactobacillus Acidoph/Bulgaricus (Floranex) 1 tab BID PO Last administered on 08:10; Admin Dose 1 TAB; Start 12/11/16 at 21:00 Nifedipine (Procardia Xl) 60 mg BID PO Last administered on 12/13/16 08:10; Admin Dose 60 MG; Start 12/11/16 at 21:00 Famotidine (Pepcid) 20 mg DAILY PO Last administered on 12/13/16 08:09; Admin Dose 20 MG; Start 12/12/16 at 09:00 Guaifenesin (Robitussin Liquid Cup) 100 mg Q4H PRN PO COUGH; Start 12/11/16 at 18:00 Enoxaparin Sodium (Lovenox) 30 mg DAILY SC Last administered on 12/13/16 08:13 ; Admin Dose 30 MG; Start 12/12/16 at 09:00 Linezolid (Zyvox) 600 mg BID PO Last administered on 12/13/16 08:10; Admin Dose 600 MG; Start 12/11/16 at 21:00 Diagnostic Test (Pha) (Accucheck) 1 ea 02 XX Last administered on 12/12/16 02: 16; Admin Dose 1 EA; Start 12/12/16 at 02:00 Levofloxacin (Levaquin) 500 mg DAILY@06 PO Last administered on 12/13/16 06:31 ; Admin Dose 500 MG; Start 12/12/16 at 06:00 Carvedilol (Coreg) 25 mg BID PO Last administered on 12/13/16 08:10; Admin Dose 25 MG; Start 12/11/16 at 21:00 Clonidine (Catapres) 0.1 mg TID PO Last administered on 12/13/16 08:11; Admin Dose 0.1 MG; Start 12/11/16 at 21:00 Acetaminophen/ Hydrocodone Bitart (Rake (10/325)) 1 tab Q4H PRN PO PAIN Last administered on 12/12/16 21:39; Admin Dose 1 TAB; Start 12/11/16 at 21:00 Hydralazine HCl (Apresoline) 100 mg TID PO Last administered on 12/13/16 08:11 ; Admin Dose 100 MG; Start 12/12/16 at 21:00 Silver Sulfadiazine (Thermazene 1% 50 Gm) 1 applic BID TOP Last administered on 12/13/16 08:14; Admin Dose 1 APPLIC; Start 12/12/16 at 21:00 Assessment/Plan Additional Assessment/Plan Rehab- Other orthopedic injury with left first toe amputation secondary to osteomyelitis. Continue treatment plan Diabetes mellitus. Diabetic neuropathy. 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 End-stage renal disease with history of transplant. ENRICO HENDERSON MD Dec 13, 2016 11:41
[2016-12-13] MEDS: LEFLUNOMIDE 10 MG TAB PO SCH (12:21)
[2016-12-13 13:00] VITALS: BP 130/60; PULSE 78; RESP 18
--- NOTE | 2016-12-13 13:58 | PN ---
Date/Time of Note Date/Time of Note DATE: 12/13/16 TIME: 13:57 Assessment/Plan VTE Prophylaxis VTE Prophylaxis Intervention: LMWH Lines/Catheters IV [facility]ter Type (from [email or web address] Urinary Cath still in place: No Assessment/Plan Chief Complaint/Hosp Course ASSESSMENT AND PLAN 1. 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 Continue antibiotics. 2. Cellulitis, as above. 3. Diabetes mellitus type 2. Continue Lantus, insulin sliding scale, and low carb diet. 4. History of kidney transplant. Nephrology has been consulted. Continue Prograf and steroids. 5. Essential hypertension. Continue Coreg, nifedipine, and clonidine. Continue to monitor. 6. For deep venous thrombosis prophylaxis, on Lovenox. 7. For gastrointestinal prophylaxis, on Pepcid. We will continue to monitor patient closely. Further recommendations, management, and treatment as per clinical course. Problems: Subjective 24 Hr Interval Summary Free Text/Dictation Denies of any chest pain or shortness of breath No extremity pain or discomfort Exam/Review of Systems Vital Signs Vitals Vital Signs Date Time Temp Pulse Resp B/P Pulse Ox O2 Delivery O2 Flow Rate FiO2 12/13/16 13:00 78 18 130/60 96 Room Air 12/13/16 08:00 98.2 Intake and Output 12/12/16 12/12/16 12/13/16 15:00 23:00 07:00 Intake Total 680 ml 800 ml Output Total 620 ml 800 ml Balance 60 ml 0 ml Exam General: The patient is well-developed, Not in acute distress. HEENT: Atraumatic, normocephalic. The pupils are equal and round . Neck: Supple with full range of motion. Chest: Normal expansion of the thorax during inspiration Lungs: Clear to auscultation bilaterally Heart: Normal S1-S2, Regular rhythm and rate. Abdomen: Soft , nontender, nondistended , bowel sounds are present. Extremities: Status post left foot great toe amputation surgical site is dry and clean, wound VAC in place, no edema no cyanosis Neurologic: Normal mental status,The patient is awake, alert and oriented . Results Result Diagram: 12/12/16 0635 12/12/16 0635 Results 24 hrs Laboratory Tests Test 12/12/16 17:14 12/12/16 21:31 12/13/16 02:11 12/13/16 07:30 Bedside Glucose 180 251 H 170 115 Test 12/13/16 12:15 Bedside Glucose 217 Medications Medications Current Medications Docusate Sodium (Colace) 100 mg BID PO Last administered on 12/13/16 08:10; Admin Dose 100 MG; Start 12/11/16 at 21:00 Senna (Senokot) 1 tab HS PO Last administered on 12/12/16 21:38; Admin Dose 1 TAB; Start 12/11/16 at 21:00 Acetaminophen (Tylenol Tab) 650 mg Q4H PRN PO PAIN; Start 12/11/16 at 17:30 Bisacodyl (Dulcolax Supp) 10 mg DAILY PRN [place] CONSTIPATION; Start 12/11/16 at 17 :30 Magnesium Hydroxide (Milk Of Mag) 30 ml BID PRN PO CONSTIPATION; Start at 17:30 Lactulose (Enulose) 20 gm DAILY PRN PO CONSTIPATION Last administered on 08:32; Admin Dose 20 GM; Start 12/11/16 at 17:30 Miscellaneous Information 1 ea NOTE XX ; Start 12/11/16 at 17:30 Glucose (Glutose) 15 gm Q15M PRN PO DECREASED GLUCOSE; Start 12/11/16 at 17:30 Glucose (Glutose) 22.5 gm Q15M PRN PO DECREASED GLUCOSE; Start 12/11/16 at 17: 30 Dextrose (D50w Syringe) 25 ml Q15M PRN IV DECREASED GLUCOSE; Start 12/11/16 at 17:30 Dextrose (D50w Syringe) 50 ml Q15M PRN IV DECREASED GLUCOSE; Start 12/11/16 at 17:30 Glucagon (Glucagen) 1 mg Q15M PRN IM DECREASED GLUCOSE; Start 12/11/16 at 17:30 Glucose (Glutose) 15 gm Q15M PRN BUCCAL DECREASED GLUCOSE; Start 12/11/16 at 17 :30 Prednisone (Prednisone) 5 mg DAILY PO Last administered on 12/13/16 08:09; Admin Dose 5 MG; Start 12/12/16 at 09:00 Tacrolimus (Prograf) 0.5 mg BID PO Last administered on 12/13/16 08:10; Admin Dose 0.5 MG; Start 12/11/16 at 21:00 Insulin Glargine (Lantus) 25 unit HS SC Last administered on 12/12/16 21:41; Admin Dose 25 UNIT; Start 12/11/16 at 21:00 Morphine Sulfate (morphine) 2 mg Q3H PRN IV PAIN 9-10 Last administered on 12/12 18:15; Admin Dose 2 MG; Start 12/11/16 at 17:30 Hydralazine HCl (Apresoline) 10 mg Q4H PRN IV SBP greater than 160 Last administered on 12/13/16 02:27; Admin Dose 10 MG; Start 12/11/16 at 17:30 Leflunomide (Arava) 20 mg DAILY PO Last administered on 12/13/16 12:21; Admin Dose 20 MG; Start 12/12/16 at 09:00 Lactobacillus Acidoph/Bulgaricus (Floranex) 1 tab BID PO Last administered on 08:10; Admin Dose 1 TAB; Start 12/11/16 at 21:00 Nifedipine (Procardia Xl) 60 mg BID PO Last administered on 12/13/16 08:10; Admin Dose 60 MG; Start 12/11/16 at 21:00 Famotidine (Pepcid) 20 mg DAILY PO Last administered on 12/13/16 08:09; Admin Dose 20 MG; Start 12/12/16 at 09:00 Guaifenesin (Robitussin Liquid Cup) 100 mg Q4H PRN PO COUGH; Start 12/11/16 at 18:00 Enoxaparin Sodium (Lovenox) 30 mg DAILY SC Last administered on 12/13/16 08:13 ; Admin Dose 30 MG; Start 12/12/16 at 09:00 Linezolid (Zyvox) 600 mg BID PO Last administered on 12/13/16 08:10; Admin Dose 600 MG; Start 12/11/16 at 21:00 Diagnostic Test (Pha) (Accucheck) 1 ea 02 XX Last administered on 12/12/16 02: 16; Admin Dose 1 EA; Start 12/12/16 at 02:00 Levofloxacin (Levaquin) 500 mg DAILY@06 PO Last administered on 12/13/16 06:31 ; Admin Dose 500 MG; Start 12/12/16 at 06:00 Carvedilol (Coreg) 25 mg BID PO Last administered on 12/13/16 08:10; Admin Dose 25 MG; Start 12/11/16 at 21:00 Clonidine (Catapres) 0.1 mg TID PO Last administered on 12/13/16 13:52; Admin Dose 0.1 MG; Start 12/11/16 at 21:00 Acetaminophen/ Hydrocodone Bitart ([place] (10/325)) 1 tab Q4H PRN PO PAIN Last administered on 12/12/16 21:39; Admin Dose 1 TAB; Start 12/11/16 at 21:00 Hydralazine HCl (Apresoline) 100 mg TID PO Last administered on 12/13/16 13:52 ; Admin Dose 100 MG; Start 12/12/16 at 21:00 Silver Sulfadiazine (Thermazene 1% 50 Gm) 1 applic BID TOP Last administered on 12/13/16 08:14; Admin Dose 1 APPLIC; Start 12/12/16 at 21:00 ALVIN TORRES MD Dec 13, 2016 13:58
--- NOTE | 2016-12-13 14:19 | CONS ---
Date/Time of Note Date/Time of Note DATE: 12/13/16 TIME: 14:18 Assessment/Plan Assessment/Plan Chief Complaint/Hosp Course No acute events, awake, denies pain, nad, no fevers MICROBIOLOGY: Wound culture growing VRE and Morganella morganii species, susceptible to Levaquin. ANTIBIOTICS: 1. Levaquin. 2. Zyvox PHYSICAL EXAMINATION GENERAL: An obese, well-developed, elderly man who is alert, in no distress. HEENT: Head atraumatic, normocephalic. Sclerae are anicteric. Buccal mucosa pink. NECK: Supple. CHEST: Rise symmetrical. Breath sounds clear. HEART: S1, S2. ABDOMEN: Soft, bowel tones present. EXTREMITIES: Left foot to wound VAC. ASSESSMENT 1. Left lower extremity cellulitis with osteomyelitis, status post I and D with great toe amputation. 2. Diabetes. 3. History of cerebrovascular accident. 4. History of renal transplant; on Prograf, prednisone. PLAN: The patient remains stable, continue abx for 6 weeks, continue wound care per podiatry rec-s DW Dr Mayorga Problems: Consultation Date/Type/Reason Admit Date/Time Dec 11, 2016 at 16:26 Type of Consultation: id Exam/Review of Systems Vital Signs Vitals Vital Signs Date Time Temp Pulse Resp B/P Pulse Ox O2 Delivery O2 Flow Rate FiO2 12/13/16 13:00 78 18 130/60 96 Room Air 12/13/16 08:00 98.2 Intake and Output 12/12/16 12/12/16 12/13/16 15:00 23:00 07:00 Intake Total 680 ml 800 ml Output Total 620 ml 800 ml Balance 60 ml 0 ml Results Result Diagram: 12/12/16 0635 12/12/16 0635 Results 24 hrs Laboratory Tests Test 12/12/16 17:14 12/12/16 21:31 12/13/16 02:11 12/13/16 07:30 Bedside Glucose 180 251 H 170 115 Test 12/13/16 12:15 Bedside Glucose 217 Medications Medications Current Medications Docusate Sodium (Colace) 100 mg BID PO Last administered on 12/13/16 08:10; Admin Dose 100 MG; Start 12/11/16 at 21:00 Senna (Senokot) 1 tab HS PO Last administered on 12/12/16 21:38; Admin Dose 1 TAB; Start 12/11/16 at 21:00 Acetaminophen (Tylenol Tab) 650 mg Q4H PRN PO PAIN; Start 12/11/16 at 17:30 Bisacodyl (Dulcolax Supp) 10 mg DAILY PRN [place] CONSTIPATION; Start 12/11/16 at 17 :30 Magnesium Hydroxide (Milk Of Mag) 30 ml BID PRN PO CONSTIPATION; Start at 17:30 Lactulose (Enulose) 20 gm DAILY PRN PO CONSTIPATION Last administered on 08:32; Admin Dose 20 GM; Start 12/11/16 at 17:30 Miscellaneous Information 1 ea NOTE XX ; Start 12/11/16 at 17:30 Glucose (Glutose) 15 gm Q15M PRN PO DECREASED GLUCOSE; Start 12/11/16 at 17:30 Glucose (Glutose) 22.5 gm Q15M PRN PO DECREASED GLUCOSE; Start 12/11/16 at 17: 30 Dextrose (D50w Syringe) 25 ml Q15M PRN IV DECREASED GLUCOSE; Start 12/11/16 at 17:30 Dextrose (D50w Syringe) 50 ml Q15M PRN IV DECREASED GLUCOSE; Start 12/11/16 at 17:30 Glucagon (Glucagen) 1 mg Q15M PRN IM DECREASED GLUCOSE; Start 12/11/16 at 17:30 Glucose (Glutose) 15 gm Q15M PRN BUCCAL DECREASED GLUCOSE; Start 12/11/16 at 17 :30 Prednisone (Prednisone) 5 mg DAILY PO Last administered on 12/13/16 08:09; Admin Dose 5 MG; Start 12/12/16 at 09:00 Tacrolimus (Prograf) 0.5 mg BID PO Last administered on 12/13/16 08:10; Admin Dose 0.5 MG; Start 12/11/16 at 21:00 Insulin Glargine (Lantus) 25 unit HS SC Last administered on 12/12/16 21:41; Admin Dose 25 UNIT; Start 12/11/16 at 21:00 Morphine Sulfate (morphine) 2 mg Q3H PRN IV PAIN 9-10 Last administered on 12/12 18:15; Admin Dose 2 MG; Start 12/11/16 at 17:30 Hydralazine HCl (Apresoline) 10 mg Q4H PRN IV SBP greater than 160 Last administered on 12/13/16 02:27; Admin Dose 10 MG; Start 12/11/16 at 17:30 Leflunomide (Arava) 20 mg DAILY PO Last administered on 12/13/16 12:21; Admin Dose 20 MG; Start 12/12/16 at 09:00 Lactobacillus Acidoph/Bulgaricus (Floranex) 1 tab BID PO Last administered on 08:10; Admin Dose 1 TAB; Start 12/11/16 at 21:00 Nifedipine (Procardia Xl) 60 mg BID PO Last administered on 12/13/16 08:10; Admin Dose 60 MG; Start 12/11/16 at 21:00 Famotidine (Pepcid) 20 mg DAILY PO Last administered on 12/13/16 08:09; Admin Dose 20 MG; Start 12/12/16 at 09:00 Guaifenesin (Robitussin Liquid Cup) 100 mg Q4H PRN PO COUGH; Start 12/11/16 at 18:00 Enoxaparin Sodium (Lovenox) 30 mg DAILY SC Last administered on 12/13/16 08:13 ; Admin Dose 30 MG; Start 12/12/16 at 09:00 Linezolid (Zyvox) 600 mg BID PO Last administered on 12/13/16 08:10; Admin Dose 600 MG; Start 12/11/16 at 21:00 Diagnostic Test (Pha) (Accucheck) 1 ea 02 XX Last administered on 12/12/16 02: 16; Admin Dose 1 EA; Start 12/12/16 at 02:00 Levofloxacin (Levaquin) 500 mg DAILY@06 PO Last administered on 12/13/16 06:31 ; Admin Dose 500 MG; Start 12/12/16 at 06:00 Carvedilol (Coreg) 25 mg BID PO Last administered on 12/13/16 08:10; Admin Dose 25 MG; Start 12/11/16 at 21:00 Clonidine (Catapres) 0.1 mg TID PO Last administered on 12/13/16 13:52; Admin Dose 0.1 MG; Start 12/11/16 at 21:00 Acetaminophen/ Hydrocodone Bitart ([place]y (10/325)) 1 tab Q4H PRN PO PAIN Last administered on 12/12/16 21:39; Admin Dose 1 TAB; Start 12/11/16 at 21:00 Hydralazine HCl (Apresoline) 100 mg TID PO Last administered on 12/13/16 13:52 ; Admin Dose 100 MG; Start 12/12/16 at 21:00 Silver Sulfadiazine (Thermazene 1% 50 Gm) 1 applic BID TOP Last administered on 12/13/16 08:14; Admin Dose 1 APPLIC; Start 12/12/16 at 21:00 BEHZAD TURNER NP Dec 13, 2016 14:19
--- NOTE | 2016-12-13 19:57 | OPR ---
DATE OF OPERATION: 12/13/2016 SURGEON: Lia Mayorga DPM VP CUSTOMER DEVELOPMENT: None. PREOPERATIVE DIAGNOSES: 1. Left foot ulceration, status post partial hallux amputation, residual skin necrosis. 2. Peripheral arterial disease. 3. History of renal transplant, on Prograf and prednisone. 4. Diabetes type 2. POSTOPERATIVE DIAGNOSES: 1. Left foot ulceration, status post partial hallux amputation, residual skin necrosis. 2. Peripheral arterial disease. 3. History of renal transplant, on Prograf and prednisone. 4. Diabetes type 2. PROCEDURES PERFORMED: Left foot excisional debridement of skin, subcutaneous tissue, adipose tendon and muscle 3 x 4 cm. PATHOLOGY: None. ANESTHESIA: None. ESTIMATED BLOOD LOSS: None. COMPLICATIONS: None. INDICATION FOR PROCEDURE: Status post partial hallux amputation with residual skin necrosis ,malodor, intraoperative cultures pending. Discussed planned procedure. Consent obtained. DESCRIPTION OF PROCEDURE: The patient seen at bedside. Had a persistent malodor. Skin and subcutaneous necrosis. Ulceration was cleansed with antiseptic solution and using a combination of instrumentation, pickups, scissors, excisional debridement performed of necrotic skin, subcutaneous tissue , ligament, tendon and muscle. Wound measured 4 x 3 cm. Patient had exposed bone proximal phalanx which was not debrided. The wound was irrigated with Betadine and applied Silvadene ointment. POSTOPERATIVE PLAN: Recommend b.i.d. dressing changes with Silvadene dry sterile dressings, likely to require further intervention. Not a candidate for revascularization. The patient has a poor to guarded prognosis. We will continue to monitor while in house. Patient on IV antibiotics. Appreciate ID assistance with this. Dictated By: LIA OSHEA/KIEL Conf#: [id number] DID#: [id number] [facility]
[2016-12-13 19:59] VITALS: BP 180/74; RESP 18
[2016-12-13] MEDS: SENNA TAB PO SCH (21:11)
[2016-12-13] MEDS: INSULIN GLARGINE [LANtus] 3 ML PEN SC SCH (21:19)
[2016-12-14] MEDS: ACCUCHECK AT 2AM (Patients on SS coverage) XX SCH (02:00)
[2016-12-14] MEDS: LEVOFLOXACIN 500 MG TAB PO SCH (06:54)
[2016-12-14 07:33] VITALS: BP 180/76; RESP 18
[2016-12-14] MEDS: INSULIN ASPART [NOVOLOG] 3 ML PEN SC SCH ×4 (07:45→21:10)
[2016-12-14 08:00] VITALS: BP 180/76; PULSE 73; RESP 18
[2016-12-14] MEDS: FAMOTIDINE 20 MG TAB PO SCH (08:38)
[2016-12-14] MEDS: LACTOBACILLUS CHEW TAB PO SCH ×2 (08:38→20:55)
[2016-12-14] MEDS: DOCUSATE SODIUM 100 MG CAP PO SCH ×2 (08:38→21:00)
[2016-12-14] MEDS: ZYVOX 600 MG TAB PO SCH ×2 (08:40→20:58)
[2016-12-14] MEDS: NIFEdipine (XL) 60 MG TAB PO SCH ×2 (08:41→20:58)
[2016-12-14] MEDS: predniSONE 5 MG TAB PO SCH (08:41)
[2016-12-14] MEDS: LEFLUNOMIDE 10 MG TAB PO SCH (08:42)
[2016-12-14] MEDS: TACROLIMUS 0.5 MG CAP PO SCH ×2 (08:42→20:57)
[2016-12-14] MEDS: ENOXAPARIN 30 MG/0.3 ML SYG SC SCH (08:44)
[2016-12-14] MEDS: SILVER SULFADIAZINE 1% 50 GM CR TOP SCH ×2 (08:45→22:00)
--- NOTE | 2016-12-14 10:48 | CONS ---
Date/Time of Note Date/Time of Note DATE: 12/14/16 TIME: 10:47 Consult Date/Type/Reason Admit Date/Time Dec 11, 2016 at 16:26 Type of Consultation: id Subjective Comfortable Objective Vital Signs Date Time Temp Pulse Resp B/P Pulse Ox O2 Delivery O2 Flow Rate FiO2 12/14/16 07:33 98.4 73 18 180/76 96 12/13/16 13:00 Room Air Intake and Output 12/13/16 12/13/16 12/14/16 15:00 23:00 07:00 Intake Total 720 ml 240 ml 900 ml Output Total 300 ml Balance 720 ml 240 ml 600 ml Rehab- Other orthopedic injury with left first toe amputation secondary to osteomyelitis. Continue rehab program Diabetes mellitus. Diabetic neuropathy. 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 End-stage renal disease with history of transplant. Results/Medications Result Diagram: 12/12/16 0635 12/12/16 0635 Results 24 hrs Laboratory Tests Test 12/13/16 12:15 12/13/16 17:44 12/13/16 20:43 12/14/16 02:37 Bedside Glucose 217 169 189 130 Test 12/14/16 07:31 Bedside Glucose 147 Medications Current Medications Docusate Sodium (Colace) 100 mg BID PO Last administered on 12/14/16 08:38; Admin Dose 100 MG; Start 12/11/16 at 21:00 Senna (Senokot) 1 tab HS PO Last administered on 12/13/16 21:11; Admin Dose 1 TAB; Start 12/11/16 at 21:00 Acetaminophen (Tylenol Tab) 650 mg Q4H PRN PO PAIN; Start 12/11/16 at 17:30 Bisacodyl (Dulcolax Supp) 10 mg DAILY PRN [place] CONSTIPATION; Start 12/11/16 at 17 :30 Magnesium Hydroxide (Milk Of Mag) 30 ml BID PRN PO CONSTIPATION; Start at 17:30 Lactulose (Enulose) 20 gm DAILY PRN PO CONSTIPATION Last administered on 08:32; Admin Dose 20 GM; Start 12/11/16 at 17:30 Miscellaneous Information 1 ea NOTE XX ; Start 12/11/16 at 17:30 Glucose (Glutose) 15 gm Q15M PRN PO DECREASED GLUCOSE; Start 12/11/16 at 17:30 Glucose (Glutose) 22.5 gm Q15M PRN PO DECREASED GLUCOSE; Start 12/11/16 at 17: 30 Dextrose (D50w Syringe) 25 ml Q15M PRN IV DECREASED GLUCOSE; Start 12/11/16 at 17:30 Dextrose (D50w Syringe) 50 ml Q15M PRN IV DECREASED GLUCOSE; Start 12/11/16 at 17:30 Glucagon (Glucagen) 1 mg Q15M PRN IM DECREASED GLUCOSE; Start 12/11/16 at 17:30 Glucose (Glutose) 15 gm Q15M PRN BUCCAL DECREASED GLUCOSE; Start 12/11/16 at 17 :30 Prednisone (Prednisone) 5 mg DAILY PO Last administered on 12/14/16 08:41; Admin Dose 5 MG; Start 12/12/16 at 09:00 Tacrolimus (Prograf) 0.5 mg BID PO Last administered on 12/14/16 08:42; Admin Dose 0.5 MG; Start 12/11/16 at 21:00 Insulin Glargine (Lantus) 25 unit HS SC Last administered on 12/13/16 21:19; Admin Dose 25 UNIT; Start 12/11/16 at 21:00 Morphine Sulfate (morphine) 2 mg Q3H PRN IV PAIN 9-10 Last administered on 12/12 18:15; Admin Dose 2 MG; Start 12/11/16 at 17:30 Hydralazine HCl (Apresoline) 10 mg Q4H PRN IV SBP greater than 160 Last administered on 12/13/16 02:27; Admin Dose 10 MG; Start 12/11/16 at 17:30 Leflunomide (Arava) 20 mg DAILY PO Last administered on 12/14/16 08:42; Admin Dose 20 MG; Start 12/12/16 at 09:00 Lactobacillus Acidoph/Bulgaricus (Floranex) 1 tab BID PO Last administered on 08:38; Admin Dose 1 TAB; Start 12/11/16 at 21:00 Nifedipine (Procardia Xl) 60 mg BID PO Last administered on 12/14/16 08:41; Admin Dose 60 MG; Start 12/11/16 at 21:00 Famotidine (Pepcid) 20 mg DAILY PO Last administered on 12/14/16 08:38; Admin Dose 20 MG; Start 12/12/16 at 09:00 Guaifenesin (Robitussin Liquid Cup) 100 mg Q4H PRN PO COUGH; Start 12/11/16 at 18:00 Enoxaparin Sodium (Lovenox) 30 mg DAILY SC Last administered on 12/14/16 08:44 ; Admin Dose 30 MG; Start 12/12/16 at 09:00 Linezolid (Zyvox) 600 mg BID PO Last administered on 12/14/16 08:40; Admin Dose 600 MG; Start 12/11/16 at 21:00 Diagnostic Test (Pha) (Accucheck) 1 ea 02 XX Last administered on 12/14/16 02: 00; Admin Dose 1 EA; Start 12/12/16 at 02:00 Levofloxacin (Levaquin) 500 mg DAILY@06 PO Last administered on 12/14/16 06:54 ; Admin Dose 500 MG; Start 12/12/16 at 06:00 Carvedilol (Coreg) 25 mg BID PO Last administered on 12/14/16 08:40; Admin Dose 25 MG; Start 12/11/16 at 21:00 Clonidine (Catapres) 0.1 mg TID PO Last administered on 12/14/16 08:39; Admin Dose 0.1 MG; Start 12/11/16 at 21:00 Acetaminophen/ Hydrocodone Bitart ([place] (10/325)) 1 tab Q4H PRN PO PAIN Last administered on 12/12/16 21:39; Admin Dose 1 TAB; Start 12/11/16 at 21:00 Hydralazine HCl (Apresoline) 100 mg TID PO Last administered on 12/14/16 08:41 ; Admin Dose 100 MG; Start 12/12/16 at 21:00 Silver Sulfadiazine (Thermazene 1% 50 Gm) 1 applic BID TOP Last administered on 12/14/16 08:45; Admin Dose 1 APPLIC; Start 12/12/16 at 21:00 ENRICO HENDERSON MD Dec 14, 2016 10:48
--- NOTE | 2016-12-14 13:22 | CONS ---
Date/Time of Note Date/Time of Note DATE: 12/14/16 TIME: 13:19 Consult Date/Type/Reason Admit Date/Time Dec 11, 2016 at 16:26 Initial Consult Date nov, Type of Consultation: id Subjective no complaints, continued isues with pain in amputed foot. Objective chest clear, abdomen soft, no edema Vital Signs Date Time Temp Pulse Resp B/P Pulse Ox O2 Delivery O2 Flow Rate FiO2 12/14/16 07:33 98.4 73 18 180/76 96 12/13/16 13:00 Room Air Intake and Output 12/13/16 12/13/16 12/14/16 15:00 23:00 07:00 Intake Total 720 ml 240 ml 900 ml Output Total 300 ml Balance 720 ml 240 ml 600 ml Results/Medications Result Diagram: 12/12/16 0635 12/12/16 0635 Results 24 hrs Laboratory Tests Test 12/13/16 17:44 12/13/16 20:43 12/14/16 02:37 12/14/16 07:31 Bedside Glucose 169 189 130 147 Test 12/14/16 12:05 Bedside Glucose 217 Medications Current Medications Docusate Sodium (Colace) 100 mg BID PO Last administered on 12/14/16 08:38; Admin Dose 100 MG; Start 12/11/16 at 21:00 Senna (Senokot) 1 tab HS PO Last administered on 12/13/16 21:11; Admin Dose 1 TAB; Start 12/11/16 at 21:00 Acetaminophen (Tylenol Tab) 650 mg Q4H PRN PO PAIN; Start 12/11/16 at 17:30 Bisacodyl (Dulcolax Supp) 10 mg DAILY PRN [place] CONSTIPATION; Start 12/11/16 at 17 :30 Magnesium Hydroxide (Milk Of Mag) 30 ml BID PRN PO CONSTIPATION; Start at 17:30 Lactulose (Enulose) 20 gm DAILY PRN PO CONSTIPATION Last administered on 08:32; Admin Dose 20 GM; Start 12/11/16 at 17:30 Miscellaneous Information 1 ea NOTE XX ; Start 12/11/16 at 17:30 Glucose (Glutose) 15 gm Q15M PRN PO DECREASED GLUCOSE; Start 12/11/16 at 17:30 Glucose (Glutose) 22.5 gm Q15M PRN PO DECREASED GLUCOSE; Start 12/11/16 at 17: 30 Dextrose (D50w Syringe) 25 ml Q15M PRN IV DECREASED GLUCOSE; Start 12/11/16 at 17:30 Dextrose (D50w Syringe) 50 ml Q15M PRN IV DECREASED GLUCOSE; Start 12/11/16 at 17:30 Glucagon (Glucagen) 1 mg Q15M PRN IM DECREASED GLUCOSE; Start 12/11/16 at 17:30 Glucose (Glutose) 15 gm Q15M PRN BUCCAL DECREASED GLUCOSE; Start 12/11/16 at 17 :30 Prednisone (Prednisone) 5 mg DAILY PO Last administered on 12/14/16 08:41; Admin Dose 5 MG; Start 12/12/16 at 09:00 Tacrolimus (Prograf) 0.5 mg BID PO Last administered on 12/14/16 08:42; Admin Dose 0.5 MG; Start 12/11/16 at 21:00 Insulin Glargine (Lantus) 25 unit HS SC Last administered on 12/13/16 21:19; Admin Dose 25 UNIT; Start 12/11/16 at 21:00 Morphine Sulfate (morphine) 2 mg Q3H PRN IV PAIN 9-10 Last administered on 12/12 18:15; Admin Dose 2 MG; Start 12/11/16 at 17:30 Hydralazine HCl (Apresoline) 10 mg Q4H PRN IV SBP greater than 160 Last administered on 12/13/16 02:27; Admin Dose 10 MG; Start 12/11/16 at 17:30 Leflunomide (Arava) 20 mg DAILY PO Last administered on 12/14/16 08:42; Admin Dose 20 MG; Start 12/12/16 at 09:00 Lactobacillus Acidoph/Bulgaricus (Floranex) 1 tab BID PO Last administered on 08:38; Admin Dose 1 TAB; Start 12/11/16 at 21:00 Nifedipine (Procardia Xl) 60 mg BID PO Last administered on 12/14/16 08:41; Admin Dose 60 MG; Start 12/11/16 at 21:00 Famotidine (Pepcid) 20 mg DAILY PO Last administered on 12/14/16 08:38; Admin Dose 20 MG; Start 12/12/16 at 09:00 Guaifenesin (Robitussin Liquid Cup) 100 mg Q4H PRN PO COUGH; Start 12/11/16 at 18:00 Enoxaparin Sodium (Lovenox) 30 mg DAILY SC Last administered on 12/14/16 08:44 ; Admin Dose 30 MG; Start 12/12/16 at 09:00 Linezolid (Zyvox) 600 mg BID PO Last administered on 12/14/16 08:40; Admin Dose 600 MG; Start 12/11/16 at 21:00 Diagnostic Test (Pha) (Accucheck) 1 ea 02 XX Last administered on 12/14/16 02: 00; Admin Dose 1 EA; Start 12/12/16 at 02:00 Levofloxacin (Levaquin) 500 mg DAILY@06 PO Last administered on 12/14/16 06:54 ; Admin Dose 500 MG; Start 12/12/16 at 06:00 Carvedilol (Coreg) 25 mg BID PO Last administered on 12/14/16 08:40; Admin Dose 25 MG; Start 12/11/16 at 21:00 Clonidine (Catapres) 0.1 mg TID PO Last administered on 12/14/16 12:36; Admin Dose 0.1 MG; Start 12/11/16 at 21:00 Acetaminophen/ Hydrocodone Bitart ([place] (10/325)) 1 tab Q4H PRN PO PAIN Last administered on 12/12/16 21:39; Admin Dose 1 TAB; Start 12/11/16 at 21:00 Hydralazine HCl (Apresoline) 100 mg TID PO Last administered on 12/14/16 12:35 ; Admin Dose 100 MG; Start 12/12/16 at 21:00 Silver Sulfadiazine (Thermazene 1% 50 Gm) 1 applic BID TOP Last administered on 12/14/16 08:45; Admin Dose 1 APPLIC; Start 12/12/16 at 21:00 Assessment/Plan Chief Complaint/Hosp Course renal tx 2 years hypertension iddm h/o cva post ltbig toe amputation Problems: Additional Assessment/Plan hypertension not controlled, add chlorthalidone 25 qd, increase clonidine to 0.2 tid , hold if systolic less than 120, [place] [address] q 2 weeks, lipids ok. LUANA DAVIS MD Dec 14, 2016 13:22
[2016-12-14] MEDS: CHOLECALCIFEROL 2,000 UNIT CAP PO SCH (13:30)
[2016-12-14] MEDS: CHLORTHALIDONE 25 MG TAB PO SCH (14:30)
--- NOTE | 2016-12-14 14:58 | PN ---
Date/Time of Note Date/Time of Note DATE: 12/14/16 TIME: 14:53 Assessment/Plan VTE Prophylaxis VTE Prophylaxis Intervention: LMWH Lines/Catheters IV [facility] [place] [facility] Urinary Cath still in place: No Assessment/Plan Chief Complaint/Hosp Course ASSESSMENT AND PLAN 1. 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 Continue antibiotics. 2. Cellulitis, as above. 3. Diabetes mellitus type 2. Continue Lantus, insulin sliding scale, and low carb diet. 4. History of kidney transplant. Nephrology has been consulted. Continue Prograf and steroids. 5. Essential hypertension. Continue Coreg, nifedipine, and clonidine. Continue to monitor. 6. For deep venous thrombosis prophylaxis, on Lovenox. 7. For gastrointestinal prophylaxis, on Pepcid. We will continue to monitor patient closely. Further recommendations, management, and treatment as per clinical course. Problems: Subjective 24 Hr Interval Summary Free Text/Dictation No acute changes Denies of any chest pain or shortness of breath Ambulating with minimal assist Exam/Review of Systems Vital Signs Vitals Vital Signs Date Time Temp Pulse Resp B/P Pulse Ox O2 Delivery O2 Flow Rate FiO2 12/14/16 07:33 98.4 73 18 180/76 96 12/13/16 13:00 Room Air Intake and Output 12/13/16 12/13/16 12/14/16 15:00 23:00 07:00 Intake Total 720 ml 240 ml 900 ml Output Total 300 ml Balance 720 ml 240 ml 600 ml Exam General: The patient is well-developed, Not in acute distress. HEENT: Atraumatic, normocephalic. The pupils are equal and round . Neck: Supple with full range of motion. Chest: Normal expansion of the thorax during inspiration Lungs: Clear to auscultation bilaterally Heart: Normal S1-S2, Regular rhythm and rate. Abdomen: Soft , nontender, nondistended , bowel sounds are present. Extremities: Left foot great toe on wound VAC, no edema no cyanosis Neurologic: Normal mental status,The patient is awake, alert and oriented . Results Result Diagram: 12/12/16 0635 12/12/16 0635 Results 24 hrs Laboratory Tests Test 12/13/16 17:44 12/13/16 20:43 12/14/16 02:37 12/14/16 07:31 Bedside Glucose 169 189 130 147 Test 12/14/16 12:05 Bedside Glucose 217 Medications Medications Current Medications Docusate Sodium (Colace) 100 mg BID PO Last administered on 12/14/16 08:38; Admin Dose 100 MG; Start 12/11/16 at 21:00 Senna (Senokot) 1 tab HS PO Last administered on 12/13/16 21:11; Admin Dose 1 TAB; Start 12/11/16 at 21:00 Acetaminophen (Tylenol Tab) 650 mg Q4H PRN PO PAIN; Start 12/11/16 at 17:30 Bisacodyl (Dulcolax Supp) 10 mg DAILY PRN [place] CONSTIPATION; Start 12/11/16 at 17 :30 Magnesium Hydroxide (Milk Of Mag) 30 ml BID PRN PO CONSTIPATION; Start at 17:30 Lactulose (Enulose) 20 gm DAILY PRN PO CONSTIPATION Last administered on 08:32; Admin Dose 20 GM; Start 12/11/16 at 17:30 Miscellaneous Information 1 ea NOTE XX ; Start 12/11/16 at 17:30 Glucose (Glutose) 15 gm Q15M PRN PO DECREASED GLUCOSE; Start 12/11/16 at 17:30 Glucose (Glutose) 22.5 gm Q15M PRN PO DECREASED GLUCOSE; Start 12/11/16 at 17: 30 Dextrose (D50w Syringe) 25 ml Q15M PRN IV DECREASED GLUCOSE; Start 12/11/16 at 17:30 Dextrose (D50w Syringe) 50 ml Q15M PRN IV DECREASED GLUCOSE; Start 12/11/16 at 17:30 Glucagon (Glucagen) 1 mg Q15M PRN IM DECREASED GLUCOSE; Start 12/11/16 at 17:30 Glucose (Glutose) 15 gm Q15M PRN BUCCAL DECREASED GLUCOSE; Start 12/11/16 at 17 :30 Prednisone (Prednisone) 5 mg DAILY PO Last administered on 12/14/16 08:41; Admin Dose 5 MG; Start 12/12/16 at 09:00 Tacrolimus (Prograf) 0.5 mg BID PO Last administered on 12/14/16 08:42; Admin Dose 0.5 MG; Start 12/11/16 at 21:00 Insulin Glargine (Lantus) 25 unit HS SC Last administered on 12/13/16 21:19; Admin Dose 25 UNIT; Start 12/11/16 at 21:00 Morphine Sulfate (morphine) 2 mg Q3H PRN IV PAIN 9-10 Last administered on 12/12 18:15; Admin Dose 2 MG; Start 12/11/16 at 17:30 Hydralazine HCl (Apresoline) 10 mg Q4H PRN IV SBP greater than 160 Last administered on 12/13/16 02:27; Admin Dose 10 MG; Start 12/11/16 at 17:30 Leflunomide (Arava) 20 mg DAILY PO Last administered on 12/14/16 08:42; Admin Dose 20 MG; Start 12/12/16 at 09:00 Lactobacillus Acidoph/Bulgaricus (Floranex) 1 tab BID PO Last administered on 08:38; Admin Dose 1 TAB; Start 12/11/16 at 21:00 Nifedipine (Procardia Xl) 60 mg BID PO Last administered on 12/14/16 08:41; Admin Dose 60 MG; Start 12/11/16 at 21:00 Famotidine (Pepcid) 20 mg DAILY PO Last administered on 12/14/16 08:38; Admin Dose 20 MG; Start 12/12/16 at 09:00 Guaifenesin (Robitussin Liquid Cup) 100 mg Q4H PRN PO COUGH; Start 12/11/16 at 18:00 Enoxaparin Sodium (Lovenox) 30 mg DAILY SC Last administered on 12/14/16 08:44 ; Admin Dose 30 MG; Start 12/12/16 at 09:00 Linezolid (Zyvox) 600 mg BID PO Last administered on 12/14/16 08:40; Admin Dose 600 MG; Start 12/11/16 at 21:00 Diagnostic Test (Pha) (Accucheck) 1 ea 02 XX Last administered on 12/14/16 02: 00; Admin Dose 1 EA; Start 12/12/16 at 02:00 Levofloxacin (Levaquin) 500 mg DAILY@06 PO Last administered on 12/14/16 06:54 ; Admin Dose 500 MG; Start 12/12/16 at 06:00 Carvedilol (Coreg) 25 mg BID PO Last administered on 12/14/16 08:40; Admin Dose 25 MG; Start 12/11/16 at 21:00 Acetaminophen/ Hydrocodone Bitart ([place] (10/325)) 1 tab Q4H PRN PO PAIN Last administered on 12/12/16 21:39; Admin Dose 1 TAB; Start 12/11/16 at 21:00 Hydralazine HCl (Apresoline) 100 mg TID PO Last administered on 12/14/16 12:35 ; Admin Dose 100 MG; Start 12/12/16 at 21:00 Silver Sulfadiazine (Thermazene 1% 50 Gm) 1 applic BID TOP Last administered on 12/14/16 08:45; Admin Dose 1 APPLIC; Start 12/12/16 at 21:00 Clonidine (Catapres) 0.2 mg TID PO ; Start 12/14/16 at 21:00 Chlorthalidone (Hygroton) 25 mg DAILY PO ; Start 12/14/16 at 14:30 Cholecalciferol (Vitamin D) 2,000 unit DAILY PO ; Start 12/14/16 at 13:30 ALVIN TORRES MD Dec 14, 2016 14:58
[2016-12-14] MEDS: HYDROCODONE/APAP (10/325) TAB PO PRN (15:12)
--- NOTE | 2016-12-14 15:21 | CONS ---
Date/Time of Note Date/Time of Note DATE: 12/14/16 TIME: 15:20 Assessment/Plan Assessment/Plan Chief Complaint/Hosp Course No acute events, awake, denies pain, nad, no fevers MICROBIOLOGY: Wound culture growing VRE and Morganella morganii species, susceptible to Levaquin. ANTIBIOTICS: 1. Levaquin. 2. Zyvox PHYSICAL EXAMINATION GENERAL: An obese, well-developed, elderly man who is alert, in no distress. HEENT: Head atraumatic, normocephalic. Sclerae are anicteric. Buccal mucosa pink. NECK: Supple. CHEST: Rise symmetrical. Breath sounds clear. HEART: S1, S2. ABDOMEN: Soft, bowel tones present. EXTREMITIES: Left foot to wound VAC. ASSESSMENT 1. Left lower extremity cellulitis with osteomyelitis, status post I and D with great toe amputation. 2. Diabetes. 3. History of cerebrovascular accident. 4. History of renal transplant; on Prograf, prednisone. PLAN: The patient remains stable, continue abx for 6 weeks, continue wound care per podiatry rec-s MARYANN RN's Problems: Consultation Date/Type/Reason Admit Date/Time Dec 11, 2016 at 16:26 Type of Consultation: id Exam/Review of Systems Vital Signs Vitals Vital Signs Date Time Temp Pulse Resp B/P Pulse Ox O2 Delivery O2 Flow Rate FiO2 12/14/16 07:33 98.4 73 18 180/76 96 12/13/16 13:00 Room Air Intake and Output 12/13/16 12/13/16 12/14/16 15:00 23:00 07:00 Intake Total 720 ml 240 ml 900 ml Output Total 300 ml Balance 720 ml 240 ml 600 ml Results Result Diagram: 12/12/16 0635 12/12/16 0635 Results 24 hrs Laboratory Tests Test 12/13/16 17:44 12/13/16 20:43 12/14/16 02:37 12/14/16 07:31 Bedside Glucose 169 189 130 147 Test 12/14/16 12:05 Bedside Glucose 217 Medications Medications Current Medications Docusate Sodium (Colace) 100 mg BID PO Last administered on 12/14/16 08:38; Admin Dose 100 MG; Start 12/11/16 at 21:00 Senna (Senokot) 1 tab HS PO Last administered on 12/13/16 21:11; Admin Dose 1 TAB; Start 12/11/16 at 21:00 Acetaminophen (Tylenol Tab) 650 mg Q4H PRN PO PAIN; Start 12/11/16 at 17:30 Bisacodyl (Dulcolax Supp) 10 mg DAILY PRN [place] CONSTIPATION; Start 12/11/16 at 17 :30 Magnesium Hydroxide (Milk Of Mag) 30 ml BID PRN PO CONSTIPATION; Start at 17:30 Lactulose (Enulose) 20 gm DAILY PRN PO CONSTIPATION Last administered on 08:32; Admin Dose 20 GM; Start 12/11/16 at 17:30 Miscellaneous Information 1 ea NOTE XX ; Start 12/11/16 at 17:30 Glucose (Glutose) 15 gm Q15M PRN PO DECREASED GLUCOSE; Start 12/11/16 at 17:30 Glucose (Glutose) 22.5 gm Q15M PRN PO DECREASED GLUCOSE; Start 12/11/16 at 17: 30 Dextrose (D50w Syringe) 25 ml Q15M PRN IV DECREASED GLUCOSE; Start 12/11/16 at 17:30 Dextrose (D50w Syringe) 50 ml Q15M PRN IV DECREASED GLUCOSE; Start 12/11/16 at 17:30 Glucagon (Glucagen) 1 mg Q15M PRN IM DECREASED GLUCOSE; Start 12/11/16 at 17:30 Glucose (Glutose) 15 gm Q15M PRN BUCCAL DECREASED GLUCOSE; Start 12/11/16 at 17 :30 Prednisone (Prednisone) 5 mg DAILY PO Last administered on 12/14/16 08:41; Admin Dose 5 MG; Start 12/12/16 at 09:00 Tacrolimus (Prograf) 0.5 mg BID PO Last administered on 12/14/16 08:42; Admin Dose 0.5 MG; Start 12/11/16 at 21:00 Insulin Glargine (Lantus) 25 unit HS SC Last administered on 12/13/16 21:19; Admin Dose 25 UNIT; Start 12/11/16 at 21:00 Morphine Sulfate (morphine) 2 mg Q3H PRN IV PAIN 9-10 Last administered on 12/12 18:15; Admin Dose 2 MG; Start 12/11/16 at 17:30 Hydralazine HCl (Apresoline) 10 mg Q4H PRN IV SBP greater than 160 Last administered on 12/13/16 02:27; Admin Dose 10 MG; Start 12/11/16 at 17:30 Leflunomide (Arava) 20 mg DAILY PO Last administered on 12/14/16 08:42; Admin Dose 20 MG; Start 12/12/16 at 09:00 Lactobacillus Acidoph/Bulgaricus (Floranex) 1 tab BID PO Last administered on 08:38; Admin Dose 1 TAB; Start 12/11/16 at 21:00 Nifedipine (Procardia Xl) 60 mg BID PO Last administered on 12/14/16 08:41; Admin Dose 60 MG; Start 12/11/16 at 21:00 Famotidine (Pepcid) 20 mg DAILY PO Last administered on 12/14/16 08:38; Admin Dose 20 MG; Start 12/12/16 at 09:00 Guaifenesin (Robitussin Liquid Cup) 100 mg Q4H PRN PO COUGH; Start 12/11/16 at 18:00 Enoxaparin Sodium (Lovenox) 30 mg DAILY SC Last administered on 12/14/16 08:44 ; Admin Dose 30 MG; Start 12/12/16 at 09:00 Linezolid (Zyvox) 600 mg BID PO Last administered on 12/14/16 08:40; Admin Dose 600 MG; Start 12/11/16 at 21:00 Diagnostic Test (Pha) (Accucheck) 1 ea 02 XX Last administered on 12/14/16 02: 00; Admin Dose 1 EA; Start 12/12/16 at 02:00 Levofloxacin (Levaquin) 500 mg DAILY@06 PO Last administered on 12/14/16 06:54 ; Admin Dose 500 MG; Start 12/12/16 at 06:00 Carvedilol (Coreg) 25 mg BID PO Last administered on 12/14/16 08:40; Admin Dose 25 MG; Start 12/11/16 at 21:00 Acetaminophen/ Hydrocodone Bitart ([place] (10/325)) 1 tab Q4H PRN PO PAIN Last administered on 12/14/16 15:12; Admin Dose 1 TAB; Start 12/11/16 at 21:00 Hydralazine HCl (Apresoline) 100 mg TID PO Last administered on 12/14/16 12:35 ; Admin Dose 100 MG; Start 12/12/16 at 21:00 Silver Sulfadiazine (Thermazene 1% 50 Gm) 1 applic BID TOP Last administered on 12/14/16 08:45; Admin Dose 1 APPLIC; Start 12/12/16 at 21:00 Clonidine (Catapres) 0.2 mg TID PO ; Start 12/14/16 at 21:00 Chlorthalidone (Hygroton) 25 mg DAILY PO ; Start 12/14/16 at 14:30 Cholecalciferol (Vitamin D) 2,000 unit DAILY PO ; Start 12/14/16 at 13:30 BEHZAD TURNER NP Dec 14, 2016 15:21
[2016-12-14 20:00] VITALS: BP 169/70; PULSE 74; RESP 18
[2016-12-14] MEDS: SENNA TAB PO SCH (21:00)
[2016-12-14] MEDS: INSULIN GLARGINE [LANtus] 3 ML PEN SC SCH (21:30)
[2016-12-14 22:07] VITALS: BP 178/69; PULSE 74
[2016-12-14 23:30] VITALS: BP 154/65; PULSE 73
[2016-12-15] MEDS: ACCUCHECK AT 2AM (Patients on SS coverage) XX SCH (02:22)
[2016-12-15] MEDS: LEVOFLOXACIN 500 MG TAB PO SCH (05:22)
[2016-12-15] MEDS: hydrALAzine 20 MG INJ IV PRN (05:23)
[2016-12-15 05:32] VITALS: BP 186/51; PULSE 78
[2016-12-15 06:00] VITALS: BP 178/60; PULSE 76
[2016-12-15 07:20] LABS: POTASSIUM 3.9 mmol/L (3.5-5.1)
[2016-12-15 07:23] LABS: CREATININE 1.05 mg/dl (0.61-1.24)
[2016-12-15 07:24] LABS: CALCIUM 8.6 mg/dl (8.4-10.2); MAGNESIUM 1.9 mg/dl (1.7-2.5)
[2016-12-15 07:30] VITALS: BP 150/71; RESP 18
[2016-12-15] MEDS: INSULIN ASPART [NOVOLOG] 3 ML PEN SC SCH ×4 (08:42→20:54)
[2016-12-15] MEDS: LEFLUNOMIDE 10 MG TAB PO SCH (08:44)
[2016-12-15] MEDS: ZYVOX 600 MG TAB PO SCH ×2 (08:44→20:39)
[2016-12-15] MEDS: DOCUSATE SODIUM 100 MG CAP PO SCH ×2 (08:45→21:00)
[2016-12-15] MEDS: CHOLECALCIFEROL 2,000 UNIT CAP PO SCH (08:45)
[2016-12-15] MEDS: NIFEdipine (XL) 60 MG TAB PO SCH ×2 (08:45→20:41)
[2016-12-15] MEDS: LACTOBACILLUS CHEW TAB PO SCH ×2 (08:45→20:40)
[2016-12-15] MEDS: FAMOTIDINE 20 MG TAB PO SCH (08:46)
[2016-12-15] MEDS: predniSONE 5 MG TAB PO SCH (08:46)
[2016-12-15] MEDS: CHLORTHALIDONE 25 MG TAB PO SCH (08:46)
[2016-12-15] MEDS: TACROLIMUS 0.5 MG CAP PO SCH ×2 (08:46→20:40)
[2016-12-15] MEDS: ENOXAPARIN 30 MG/0.3 ML SYG SC SCH (08:47)
[2016-12-15] MEDS: SILVER SULFADIAZINE 1% 50 GM CR TOP SCH ×2 (08:55→20:51)
--- NOTE | 2016-12-15 12:41 | CONS ---
Date/Time of Note Date/Time of Note DATE: 12/15/16 TIME: 12:23 Consult Date/Type/Reason Admit Date/Time Dec 11, 2016 at 16:26 Type of Consultation: id Subjective Denies pain Objective . Vital Signs Date Time Temp Pulse Resp B/P Pulse Ox O2 Delivery O2 Flow Rate FiO2 12/15/16 07:30 99.2 75 18 150/71 96 12/14/16 20:00 Room Air Intake and Output 12/14/16 12/14/16 12/15/16 15:00 23:00 07:00 Intake Total 720 ml 660 ml Output Total 400 ml Balance 320 ml 660 ml pulm- CTA min assist amb Results/Medications Result Diagram: 12/12/16 0635 12/15/16 0600 Results 24 hrs Laboratory Tests Test 12/14/16 17:30 12/14/16 21:06 12/15/16 02:12 12/15/16 06:00 Bedside Glucose 218 200 163 Anion Gap 14 Blood Urea Nitrogen 22 H Calcium Level 8.6 Carbon Dioxide Level 27 Chloride Level 99 Creatinine 1.05 Glucose Level 157 Magnesium Level 1.9 Potassium Level 3.9 Sodium Level 136 Test 12/15/16 07:28 12/15/16 11:58 Bedside Glucose 167 221 H Medications Current Medications Docusate Sodium (Colace) 100 mg BID PO Last administered on 12/15/16 08:45; Admin Dose 100 MG; Start 12/11/16 at 21:00 Senna (Senokot) 1 tab HS PO Last administered on 12/13/16 21:11; Admin Dose 1 TAB; Start 12/11/16 at 21:00 Acetaminophen (Tylenol Tab) 650 mg Q4H PRN PO PAIN; Start 12/11/16 at 17:30 Bisacodyl (Dulcolax Supp) 10 mg DAILY PRN [place] CONSTIPATION; Start 12/11/16 at 17 :30 Magnesium Hydroxide (Milk Of Mag) 30 ml BID PRN PO CONSTIPATION; Start at 17:30 Lactulose (Enulose) 20 gm DAILY PRN PO CONSTIPATION Last administered on 08:32; Admin Dose 20 GM; Start 12/11/16 at 17:30 Miscellaneous Information 1 ea NOTE XX ; Start 12/11/16 at 17:30 Glucose (Glutose) 15 gm Q15M PRN PO DECREASED GLUCOSE; Start 12/11/16 at 17:30 Glucose (Glutose) 22.5 gm Q15M PRN PO DECREASED GLUCOSE; Start 12/11/16 at 17: 30 Dextrose (D50w Syringe) 25 ml Q15M PRN IV DECREASED GLUCOSE; Start 12/11/16 at 17:30 Dextrose (D50w Syringe) 50 ml Q15M PRN IV DECREASED GLUCOSE; Start 12/11/16 at 17:30 Glucagon (Glucagen) 1 mg Q15M PRN IM DECREASED GLUCOSE; Start 12/11/16 at 17:30 Glucose (Glutose) 15 gm Q15M PRN BUCCAL DECREASED GLUCOSE; Start 12/11/16 at 17 :30 Prednisone (Prednisone) 5 mg DAILY PO Last administered on 12/15/16 08:46; Admin Dose 5 MG; Start 12/12/16 at 09:00 Tacrolimus (Prograf) 0.5 mg BID PO Last administered on 12/15/16 08:46; Admin Dose 0.5 MG; Start 12/11/16 at 21:00 Insulin Glargine (Lantus) 25 unit HS SC Last administered on 12/14/16 21:30; Admin Dose 25 UNIT; Start 12/11/16 at 21:00 Morphine Sulfate (morphine) 2 mg Q3H PRN IV PAIN 9-10 Last administered on 12/12 18:15; Admin Dose 2 MG; Start 12/11/16 at 17:30 Hydralazine HCl (Apresoline) 10 mg Q4H PRN IV SBP greater than 160 Last administered on 12/15/16 05:23; Admin Dose 10 MG; Start 12/11/16 at 17:30 Leflunomide (Arava) 20 mg DAILY PO Last administered on 12/15/16 08:44; Admin Dose 20 MG; Start 12/12/16 at 09:00 Lactobacillus Acidoph/Bulgaricus (Floranex) 1 tab BID PO Last administered on 08:45; Admin Dose 1 TAB; Start 12/11/16 at 21:00 Nifedipine (Procardia Xl) 60 mg BID PO Last administered on 12/15/16 08:45; Admin Dose 60 MG; Start 12/11/16 at 21:00 Famotidine (Pepcid) 20 mg DAILY PO Last administered on 12/15/16 08:46; Admin Dose 20 MG; Start 12/12/16 at 09:00 Guaifenesin (Robitussin Liquid Cup) 100 mg Q4H PRN PO COUGH; Start 12/11/16 at 18:00 Enoxaparin Sodium (Lovenox) 30 mg DAILY SC Last administered on 12/15/16 08:47 ; Admin Dose 30 MG; Start 12/12/16 at 09:00 Linezolid (Zyvox) 600 mg BID PO Last administered on 12/15/16 08:44; Admin Dose 600 MG; Start 12/11/16 at 21:00 Diagnostic Test (Pha) (Accucheck) 1 ea 02 XX Last administered on 12/15/16 02: 22; Admin Dose 1 EA; Start 12/12/16 at 02:00 Levofloxacin (Levaquin) 500 mg DAILY@06 PO Last administered on 12/15/16 05:22 ; Admin Dose 500 MG; Start 12/12/16 at 06:00 Carvedilol (Coreg) 25 mg BID PO Last administered on 12/15/16 08:46; Admin Dose 25 MG; Start 12/11/16 at 21:00 Acetaminophen/ Hydrocodone Bitart ([place] (10/325)) 1 tab Q4H PRN PO PAIN Last administered on 12/14/16 15:12; Admin Dose 1 TAB; Start 12/11/16 at 21:00 Hydralazine HCl (Apresoline) 100 mg TID PO Last administered on 12/15/16 08:45 ; Admin Dose 100 MG; Start 12/12/16 at 21:00 Silver Sulfadiazine (Thermazene 1% 50 Gm) 1 applic BID TOP Last administered on 12/15/16 08:55; Admin Dose 1 APPLIC; Start 12/12/16 at 21:00 Clonidine (Catapres) 0.2 mg TID PO Last administered on 12/15/16 08:46; Admin Dose 0.2 MG; Start 12/14/16 at 21:00 Chlorthalidone (Hygroton) 25 mg DAILY PO Last administered on 12/15/16 08:46; Admin Dose 25 MG; Start 12/14/16 at 14:30 Cholecalciferol (Vitamin D) 2,000 unit DAILY PO Last administered on 12/15/16t 08:45; Admin Dose 2,000 UNIT; Start 12/14/16 at 13:30 Assessment/Plan Additional Assessment/Plan Rehab- Other orthopedic injury with left first toe amputation secondary to osteomyelitis. Continue rehab program Diabetes mellitus. Diabetic neuropathy. 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 End-stage renal disease with history of transplant. ENRICO HENDERSON MD Dec 15, 2016 12:41
[2016-12-15 13:30] VITALS: BP 151/73; PULSE 72; RESP 18
--- NOTE | 2016-12-15 17:41 | PN ---
Date/Time of Note Date/Time of Note DATE: 12/15/16 TIME: 17:40 Assessment/Plan VTE Prophylaxis VTE Prophylaxis Intervention: LMWH Lines/Catheters [facility] Urinary Cath still in place: No Assessment/Plan Chief Complaint/Hosp Course ASSESSMENT AND PLAN 1. 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 Continue antibiotics. 2. Cellulitis, as above. 3. Diabetes mellitus type 2. Continue Lantus, insulin sliding scale, and low carb diet. 4. History of kidney transplant. Nephrology has been consulted. Continue Prograf and steroids. 5. Essential hypertension. Continue Coreg, nifedipine, and clonidine. Continue to monitor. 6. For deep venous thrombosis prophylaxis, on Lovenox. 7. For gastrointestinal prophylaxis, on Pepcid. We will continue to monitor patient closely. Further recommendations, management, and treatment as per clinical course. Problems: Subjective 24 Hr Interval Summary Free Text/Dictation No acute changes Patient tolerating oral intake No nausea vomiting diarrhea Ambulate with minimal assist Exam/Review of Systems Vital Signs Vitals Vital Signs Date Time Temp Pulse Resp B/P Pulse Ox O2 Delivery O2 Flow Rate FiO2 12/15/16 07:30 99.2 75 18 150/71 96 12/14/16 20:00 Room Air Intake and Output 12/14/16 12/14/16 12/15/16 15:00 23:00 07:00 Intake Total 720 ml 660 ml Output Total 400 ml Balance 320 ml 660 ml Exam General: The patient is well-developed, Not in acute distress. HEENT: Atraumatic, normocephalic. The pupils are equal and round . Neck: Supple with full range of motion. Chest: Normal expansion of the thorax during inspiration Lungs: Clear to auscultation bilaterally Heart: Normal S1-S2, Regular rhythm and rate. Abdomen: Soft , nontender, nondistended , bowel sounds are present. Extremities: Right foot great toe area in wound VAC, no edema no cyanosis Neurologic: Normal mental status,The patient is awake, alert and oriented . Results Result Diagram: 12/12/16 0635 12/15/16 0600 Results 24 hrs Laboratory Tests Test 12/14/16 21:06 12/15/16 02:12 12/15/16 06:00 12/15/16 07:28 Bedside Glucose 200 163 167 Anion Gap 14 Blood Urea Nitrogen 22 H Calcium Level 8.6 Carbon Dioxide Level 27 Chloride Level 99 Creatinine 1.05 Glucose Level 157 Magnesium Level 1.9 Potassium Level 3.9 Sodium Level 136 Test 12/15/16 11:58 12/15/16 17:02 Bedside Glucose 221 H 197 Medications Medications Current Medications Docusate Sodium (Colace) 100 mg BID PO Last administered on 12/15/16 08:45; Admin Dose 100 MG; Start 12/11/16 at 21:00 Senna (Senokot) 1 tab HS PO Last administered on 12/13/16 21:11; Admin Dose 1 TAB; Start 12/11/16 at 21:00 Acetaminophen (Tylenol Tab) 650 mg Q4H PRN PO PAIN; Start 12/11/16 at 17:30 Bisacodyl (Dulcolax Supp) 10 mg DAILY PRN [place] CONSTIPATION; Start 12/11/16 at 17 :30 Magnesium Hydroxide (Milk Of Mag) 30 ml BID PRN PO CONSTIPATION; Start at 17:30 Lactulose (Enulose) 20 gm DAILY PRN PO CONSTIPATION Last administered on 08:32; Admin Dose 20 GM; Start 12/11/16 at 17:30 Miscellaneous Information 1 ea NOTE XX ; Start 12/11/16 at 17:30 Glucose (Glutose) 15 gm Q15M PRN PO DECREASED GLUCOSE; Start 12/11/16 at 17:30 Glucose (Glutose) 22.5 gm Q15M PRN PO DECREASED GLUCOSE; Start 12/11/16 at 17: 30 Dextrose (D50w Syringe) 25 ml Q15M PRN IV DECREASED GLUCOSE; Start 12/11/16 at 17:30 Dextrose (D50w Syringe) 50 ml Q15M PRN IV DECREASED GLUCOSE; Start 12/11/16 at 17:30 Glucagon (Glucagen) 1 mg Q15M PRN IM DECREASED GLUCOSE; Start 12/11/16 at 17:30 Glucose (Glutose) 15 gm Q15M PRN BUCCAL DECREASED GLUCOSE; Start 12/11/16 at 17 :30 Prednisone (Prednisone) 5 mg DAILY PO Last administered on 12/15/16 08:46; Admin Dose 5 MG; Start 12/12/16 at 09:00 Tacrolimus (Prograf) 0.5 mg BID PO Last administered on 12/15/16 08:46; Admin Dose 0.5 MG; Start 12/11/16 at 21:00 Insulin Glargine (Lantus) 25 unit HS SC Last administered on 12/14/16 21:30; Admin Dose 25 UNIT; Start 12/11/16 at 21:00 Morphine Sulfate (morphine) 2 mg Q3H PRN IV PAIN 9-10 Last administered on 12/12 18:15; Admin Dose 2 MG; Start 12/11/16 at 17:30 Hydralazine HCl (Apresoline) 10 mg Q4H PRN IV SBP greater than 160 Last administered on 12/15/16 05:23; Admin Dose 10 MG; Start 12/11/16 at 17:30 Leflunomide (Arava) 20 mg DAILY PO Last administered on 12/15/16 08:44; Admin Dose 20 MG; Start 12/12/16 at 09:00 Lactobacillus Acidoph/Bulgaricus (Floranex) 1 tab BID PO Last administered on 08:45; Admin Dose 1 TAB; Start 12/11/16 at 21:00 Nifedipine (Procardia Xl) 60 mg BID PO Last administered on 12/15/16 08:45; Admin Dose 60 MG; Start 12/11/16 at 21:00 Famotidine (Pepcid) 20 mg DAILY PO Last administered on 12/15/16 08:46; Admin Dose 20 MG; Start 12/12/16 at 09:00 Guaifenesin (Robitussin Liquid Cup) 100 mg Q4H PRN PO COUGH; Start 12/11/16 at 18:00 Enoxaparin Sodium (Lovenox) 30 mg DAILY SC Last administered on 12/15/16 08:47 ; Admin Dose 30 MG; Start 12/12/16 at 09:00 Linezolid (Zyvox) 600 mg BID PO Last administered on 12/15/16 08:44; Admin Dose 600 MG; Start 12/11/16 at 21:00 Diagnostic Test (Pha) (Accucheck) 1 ea 02 XX Last administered on 12/15/16 02: 22; Admin Dose 1 EA; Start 12/12/16 at 02:00 Levofloxacin (Levaquin) 500 mg DAILY@06 PO Last administered on 12/15/16 05:22 ; Admin Dose 500 MG; Start 12/12/16 at 06:00 Carvedilol (Coreg) 25 mg BID PO Last administered on 12/15/16 08:46; Admin Dose 25 MG; Start 12/11/16 at 21:00 Acetaminophen/ Hydrocodone Bitart ([place] (10/325)) 1 tab Q4H PRN PO PAIN Last administered on 12/14/16 15:12; Admin Dose 1 TAB; Start 12/11/16 at 21:00 Hydralazine HCl (Apresoline) 100 mg TID PO Last administered on 12/15/16 13:52 ; Admin Dose 100 MG; Start 12/12/16 at 21:00 Silver Sulfadiazine (Thermazene 1% 50 Gm) 1 applic BID TOP Last administered on 12/15/16 08:55; Admin Dose 1 APPLIC; Start 12/12/16 at 21:00 Clonidine (Catapres) 0.2 mg TID PO Last administered on 12/15/16 13:53; Admin Dose 0.2 MG; Start 12/14/16 at 21:00 Chlorthalidone (Hygroton) 25 mg DAILY PO Last administered on 12/15/16 08:46; Admin Dose 25 MG; Start 12/14/16 at 14:30 Cholecalciferol (Vitamin D) 2,000 unit DAILY PO Last administered on 12/15/16 08:45; Admin Dose 2,000 UNIT; Start 12/14/16 at 13:30 ALVIN TORRES MD Dec 15, 2016 17:41
[2016-12-15 20:40] VITALS: BP 190/88; RESP 18
[2016-12-15] MEDS: INSULIN GLARGINE [LANtus] 3 ML PEN SC SCH (20:54)
[2016-12-15] MEDS: SENNA TAB PO SCH (21:00)
[2016-12-16] VITALS (8 sets, daily range): BP systolic 137–192; BP diastolic 61–81; PULSE 71–82; RESP 18
[2016-12-16] MEDS: hydrALAzine 20 MG INJ IV PRN (01:38)
[2016-12-16] MEDS: ACCUCHECK AT 2AM (Patients on SS coverage) XX SCH (02:00)
[2016-12-16] MEDS: LEVOFLOXACIN 500 MG TAB PO SCH (05:40)
[2016-12-16] MEDS: INSULIN ASPART [NOVOLOG] 3 ML PEN SC SCH ×5 (07:32→21:20)
[2016-12-16 08:27] LABS: POTASSIUM 3.9 mmol/L (3.5-5.1)
[2016-12-16 08:29] LABS: CREATININE 1.23 mg/dl (0.61-1.24)
[2016-12-16 08:30] LABS: CALCIUM 9.1 mg/dl (8.4-10.2)
[2016-12-16 08:33] LABS: HEMATOCRIT 36.9 % (42.0-52.0); HEMOGLOBIN 12.2 g/dl (14.0-18.0); MEAN CORPUSCULAR HEMOGLOBIN 29.6 pg (29.0-33.0); MEAN CORPUSCULAR VOLUME 89.7 fl (82.0-101.0); MEAN PLATELET VOLUME 8.1 fl (7.4-10.4); PLATELET COUNT 212 10^3/UL (140-440); RED BLOOD COUNT 4.11 10^6/ul (4.70-6.10); RED CELL DISTRIBUTION WIDTH 13.9 % (11.5-14.5); UNCORRECTED WBC 10.2 10^3/ul (4.8-10.8); WHITE BLOOD COUNT 10.2 10^3/ul (4.8-10.8)
[2016-12-16 09:18] LABS: CONDITION 1
[2016-12-16] MEDS: predniSONE 5 MG TAB PO SCH (09:32)
[2016-12-16] MEDS: FAMOTIDINE 20 MG TAB PO SCH (09:32)
[2016-12-16] MEDS: DOCUSATE SODIUM 100 MG CAP PO SCH ×2 (09:32→20:48)
[2016-12-16] MEDS: ZYVOX 600 MG TAB PO SCH ×2 (09:33→20:48)
[2016-12-16] MEDS: NIFEdipine (XL) 60 MG TAB PO SCH ×2 (09:33→20:49)
[2016-12-16] MEDS: CHLORTHALIDONE 25 MG TAB PO SCH (09:33)
[2016-12-16] MEDS: LACTOBACILLUS CHEW TAB PO SCH ×2 (09:33→20:48)
[2016-12-16] MEDS: TACROLIMUS 0.5 MG CAP PO SCH ×2 (09:33→20:48)
[2016-12-16] MEDS: CHOLECALCIFEROL 2,000 UNIT CAP PO SCH (09:34)
[2016-12-16] MEDS: LEFLUNOMIDE 10 MG TAB PO SCH (09:34)
[2016-12-16] MEDS: SILVER SULFADIAZINE 1% 50 GM CR TOP SCH ×2 (09:35→21:20)
[2016-12-16] MEDS: ENOXAPARIN 30 MG/0.3 ML SYG SC SCH (09:37)
--- NOTE | 2016-12-16 10:55 | CONS ---
Date/Time of Note Date/Time of Note DATE: 12/16/16 TIME: 10:53 Consult Date/Type/Reason Admit Date/Time Dec 11, 2016 at 16:26 Type of Consultation: id Subjective Patient reports pain under control Objective pulm- cta min assist ambulation 10 feet Vital Signs Date Time Temp Pulse Resp B/P Pulse Ox O2 Delivery O2 Flow Rate FiO2 12/16/16 07:34 97.9 71 18 143/65 95 12/15/16 13:30 Room Air Intake and Output 12/15/16 12/15/16 12/16/16 15:00 23:00 07:00 Intake Total 620 ml 200 ml Output Total 650 ml 720 ml 1350 ml Balance -650 ml -100 ml -1150 ml Results/Medications Result Diagram: 12/16/1624 12/16/16 0624 Results 24 hrs Laboratory Tests Test 12/15/16 11:58 12/15/16 17:02 12/15/16 20:47 12/16/16 01:35 Bedside Glucose 221 H 197 234 H 208 Test 12/16/16 06:24 12/16/16 07:24 Anion Gap 15 Blood Urea Nitrogen 23 H Calcium Level 9.1 Carbon Dioxide Level 30 Chloride Level 98 Creatinine 1.23 Glucose Level 173 Hematocrit 36.9 L Hemoglobin 12.2 L Mean Corpuscular Hemoglobin 29.6 Mean Corpuscular Hemoglobin Concent 33.0 Mean Corpuscular Volume 89.7 Mean Platelet Volume 8.1 Platelet Count 212 Potassium Level 3.9 Red Blood Count 4.11 L Red Cell Distribution Width 13.9 Sodium Level 139 White Blood Count 10.2 Bedside Glucose 182 Medications Current Medications Docusate Sodium (Colace) 100 mg BID PO Last administered on 12/16/16 09:32; Admin Dose 100 MG; Start 12/11/16 at 21:00 Senna (Senokot) 1 tab HS PO Last administered on 12/13/16 21:11; Admin Dose 1 TAB; Start 12/11/16 at 21:00 Acetaminophen (Tylenol Tab) 650 mg Q4H PRN PO PAIN; Start 12/11/16 at 17:30 Bisacodyl (Dulcolax Supp) 10 mg DAILY PRN [place] CONSTIPATION; Start 12/11/16 at 17 :30 Magnesium Hydroxide (Milk Of Mag) 30 ml BID PRN PO CONSTIPATION; Start at 17:30 Lactulose (Enulose) 20 gm DAILY PRN PO CONSTIPATION Last administered on 08:32; Admin Dose 20 GM; Start 12/11/16 at 17:30 Miscellaneous Information 1 ea NOTE XX ; Start 12/11/16 at 17:30 Glucose (Glutose) 15 gm Q15M PRN PO DECREASED GLUCOSE; Start 12/11/16 at 17:30 Glucose (Glutose) 22.5 gm Q15M PRN PO DECREASED GLUCOSE; Start 12/11/16 at 17: 30 Dextrose (D50w Syringe) 25 ml Q15M PRN IV DECREASED GLUCOSE; Start 12/11/16 at 17:30 Dextrose (D50w Syringe) 50 ml Q15M PRN IV DECREASED GLUCOSE; Start 12/11/16 at 17:30 Glucagon (Glucagen) 1 mg Q15M PRN IM DECREASED GLUCOSE; Start 12/11/16 at 17:30 Glucose (Glutose) 15 gm Q15M PRN BUCCAL DECREASED GLUCOSE; Start 12/11/16 at 17 :30 Prednisone (Prednisone) 5 mg DAILY PO Last administered on 12/16/16 09:32; Admin Dose 5 MG; Start 12/12/16 at 09:00 Tacrolimus (Prograf) 0.5 mg BID PO Last administered on 12/16/16 09:33; Admin Dose 0.5 MG; Start 12/11/16 at 21:00 Insulin Glargine (Lantus) 25 unit HS SC Last administered on 12/15/16 20:54; Admin Dose 25 UNIT; Start 12/11/16 at 21:00 Morphine Sulfate (morphine) 2 mg Q3H PRN IV PAIN 9-10 Last administered on 12/12 18:15; Admin Dose 2 MG; Start 12/11/16 at 17:30 Hydralazine HCl (Apresoline) 10 mg Q4H PRN IV SBP greater than 160 Last administered on 12/16/16 01:38; Admin Dose 10 MG; Start 12/11/16 at 17:30 Leflunomide (Arava) 20 mg DAILY PO Last administered on 12/16/16 09:34; Admin Dose 20 MG; Start 12/12/16 at 09:00 Lactobacillus Acidoph/Bulgaricus (Floranex) 1 tab BID PO Last administered on 09:33; Admin Dose 1 TAB; Start 12/11/16 at 21:00 Nifedipine (Procardia Xl) 60 mg BID PO Last administered on 12/16/16 09:33; Admin Dose 60 MG; Start 12/11/16 at 21:00 Famotidine (Pepcid) 20 mg DAILY PO Last administered on 12/16/16 09:32; Admin Dose 20 MG; Start 12/12/16 at 09:00 Guaifenesin (Robitussin Liquid Cup) 100 mg Q4H PRN PO COUGH; Start 12/11/16 at 18:00 Enoxaparin Sodium (Lovenox) 30 mg DAILY SC Last administered on 12/16/16 09:37 ; Admin Dose 30 MG; Start 12/12/16 at 09:00 Linezolid (Zyvox) 600 mg BID PO Last administered on 12/16/16 09:33; Admin Dose 600 MG; Start 12/11/16 at 21:00 Diagnostic Test (Pha) (Accucheck) 1 ea 02 XX Last administered on 12/16/16 02: 00; Admin Dose 1 EA; Start 12/12/16 at 02:00 Levofloxacin (Levaquin) 500 mg DAILY@06 PO Last administered on 12/16/16 05:40 ; Admin Dose 500 MG; Start 12/12/16 at 06:00 Carvedilol (Coreg) 25 mg BID PO Last administered on 12/16/16 09:31; Admin Dose 25 MG; Start 12/11/16 at 21:00 Acetaminophen/ Hydrocodone Bitart ([place] (10/325)) 1 tab Q4H PRN PO PAIN Last administered on 12/14/16 15:12; Admin Dose 1 TAB; Start 12/11/16 at 21:00 Hydralazine HCl (Apresoline) 100 mg TID PO Last administered on 12/16/16 09:34 ; Admin Dose 100 MG; Start 12/12/16 at 21:00 Silver Sulfadiazine (Thermazene 1% 50 Gm) 1 applic BID TOP Last administered on 12/16/16 09:35; Admin Dose 1 APPLIC; Start 12/12/16 at 21:00 Clonidine (Catapres) 0.2 mg TID PO Last administered on 12/16/16 09:32; Admin Dose 0.2 MG; Start 12/14/16 at 21:00 Chlorthalidone (Hygroton) 25 mg DAILY PO Last administered on 12/16/16 09:33; Admin Dose 25 MG; Start 12/14/16 at 14:30 Cholecalciferol (Vitamin D) 2,000 unit DAILY PO Last administered on 12/16/16 09:34; Admin Dose 2,000 UNIT; Start 12/14/16 at 13:30 Assessment/Plan Additional Assessment/Plan Rehab- Other orthopedic injury with left first toe amputation secondary to osteomyelitis. Continue rehab interdisciplinary treatment plan Diabetes mellitus. Diabetic neuropathy. 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 End-stage renal disease with history of transplant. ENRICO HENDERSON MD Dec 16, 2016 10:55
[2016-12-16 13:32] LABS: LYMPHOCYTES % 9.7 % (15.0-51.0); NEUTROPHILS % 83.1 % (39.0-77.0)
[2016-12-16 13:33] LABS: BASOPHILS % 0.2 % (0.0-2.0); EOSINOPHILS # 0.1 10^3/ul (0.0-0.5); EOSINOPHILS % 0.5 % (0.0-7.0); MONOCYTE # 0.7 10^3/ul (0.3-0.9); MONOCYTES % 6.5 % (0.0-11.0); NEUTROPHIL # 8.4 10^3/ul (1.6-7.5); TOTAL CELLS COUNTED % 100
--- NOTE | 2016-12-16 16:30 | PN ---
Date/Time of Note Date/Time of Note DATE: 12/16/16 TIME: 16:29 Assessment/Plan VTE Prophylaxis VTE Prophylaxis Intervention: LMWH Lines/Catheters IV C[facility]ter Type (from [facility] Urinary Cath still in place: No Assessment/Plan Chief Complaint/Hosp Course ASSESSMENT AND PLAN 1. 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 Continue antibiotics. 2. Cellulitis, as above. 3. Diabetes mellitus type 2. Continue Lantus, insulin sliding scale, and low carb diet. 4. History of kidney transplant. Nephrology has been consulted. Continue Prograf and steroids. 5. Essential hypertension. Continue Coreg, nifedipine, and clonidine. Continue to monitor. 6. For deep venous thrombosis prophylaxis, on Lovenox. 7. For gastrointestinal prophylaxis, on Pepcid. We will continue to monitor patient closely. Further recommendations, management, and treatment as per clinical course. Problems: Subjective 24 Hr Interval Summary Free Text/Dictation No acute changes Ambulating with physical therapy Exam/Review of Systems Vital Signs Vitals Vital Signs Date Time Temp Pulse Resp B/P Pulse Ox O2 Delivery O2 Flow Rate FiO2 12/16/16 07:34 97.9 71 18 143/65 95 12/15/16 13:30 Room Air Intake and Output 12/15/16 12/15/16 12/16/16 15:00 23:00 07:00 Intake Total 620 ml 200 ml Output Total 650 ml 720 ml 1350 ml Balance -650 ml -100 ml -1150 ml Exam General: The patient is well-developed, Not in acute distress. HEENT: Atraumatic, normocephalic. The pupils are equal and round . Neck: Supple with full range of motion. Chest: Normal expansion of the thorax during inspiration Lungs: Clear to auscultation bilaterally Heart: Normal S1-S2, Regular rhythm and rate. Abdomen: Soft , nontender, nondistended , bowel sounds are present. Extremities: Right foot in dry dressing, no edema no cyanosis Neurologic: Normal mental status,The patient is awake, alert and oriented . Results Result Diagram: 12/16/16 0624 12/16/16 0624 Results 24 hrs Laboratory Tests Test 12/15/16 17:02 12/15/16 20:47 12/16/16 01:35 12/16/16 06:24 Bedside Glucose 197 234 H 208 Anion Gap 15 Band Neutrophils % 0.0 Basophils # 0.0 Basophils % 0.2 Blood Urea Nitrogen 23 H Calcium Level 9.1 Carbon Dioxide Level 30 Chloride Level 98 Creatinine 1.23 Eosinophils # 0.1 Eosinophils % 0.5 Glucose Level 173 Hematocrit 36.9 L Hemoglobin 12.2 L Lymphocytes # 1.0 Lymphocytes % 9.7 L Mean Corpuscular Hemoglobin 29.6 Mean Corpuscular Hemoglobin Concent 33.0 Mean Corpuscular Volume 89.7 Mean Platelet Volume 8.1 Monocytes # 0.7 Monocytes % 6.5 Neutrophils # 8.4 H Neutrophils % 83.1 H Nucleated Red Blood Cells # 0.0 Nucleated Red Blood Cells % 0.0 Platelet Count 212 Potassium Level 3.9 Red Blood Count 4.11 L Red Cell Distribution Width 13.9 Sodium Level 139 White Blood Count 10.2 Test 12/16/16 07:24 12/16/16 11:52 Bedside Glucose 182 181 Medications Medications Current Medications Docusate Sodium (Colace) 100 mg BID PO Last administered on 12/16/16 09:32; Admin Dose 100 MG; Start 12/11/16 at 21:00 Senna (Senokot) 1 tab HS PO Last administered on 12/13/16 21:11; Admin Dose 1 TAB; Start 12/11/16 at 21:00 Acetaminophen (Tylenol Tab) 650 mg Q4H PRN PO PAIN; Start 12/11/16 at 17:30 Bisacodyl (Dulcolax Supp) 10 mg DAILY PRN [place] CONSTIPATION; Start 12/11/16 at 17 :30 Magnesium Hydroxide (Milk Of Mag) 30 ml BID PRN PO CONSTIPATION; Start at 17:30 Lactulose (Enulose) 20 gm DAILY PRN PO CONSTIPATION Last administered on 08:32; Admin Dose 20 GM; Start 12/11/16 at 17:30 Miscellaneous Information 1 ea NOTE XX ; Start 12/11/16 at 17:30 Glucose (Glutose) 15 gm Q15M PRN PO DECREASED GLUCOSE; Start 12/11/16 at 17:30 Glucose (Glutose) 22.5 gm Q15M PRN PO DECREASED GLUCOSE; Start 12/11/16 at 17: 30 Dextrose (D50w Syringe) 25 ml Q15M PRN IV DECREASED GLUCOSE; Start 12/11/16 at 17:30 Dextrose (D50w Syringe) 50 ml Q15M PRN IV DECREASED GLUCOSE; Start 12/11/16 at 17:30 Glucagon (Glucagen) 1 mg Q15M PRN IM DECREASED GLUCOSE; Start 12/11/16 at 17:30 Glucose (Glutose) 15 gm Q15M PRN BUCCAL DECREASED GLUCOSE; Start 12/11/16 at 17 :30 Prednisone (Prednisone) 5 mg DAILY PO Last administered on 12/16/16 09:32; Admin Dose 5 MG; Start 12/12/16 at 09:00 Tacrolimus (Prograf) 0.5 mg BID PO Last administered on 12/16/16 09:33; Admin Dose 0.5 MG; Start 12/11/16 at 21:00 Insulin Glargine (Lantus) 25 unit HS SC Last administered on 12/15/16 20:54; Admin Dose 25 UNIT; Start 12/11/16 at 21:00 Morphine Sulfate (morphine) 2 mg Q3H PRN IV PAIN 9-10 Last administered on 12/12 18:15; Admin Dose 2 MG; Start 12/11/16 at 17:30 Hydralazine HCl (Apresoline) 10 mg Q4H PRN IV SBP greater than 160 Last administered on 12/16/16 01:38; Admin Dose 10 MG; Start 12/11/16 at 17:30 Leflunomide (Arava) 20 mg DAILY PO Last administered on 12/16/16 09:34; Admin Dose 20 MG; Start 12/12/16 at 09:00 Lactobacillus Acidoph/Bulgaricus (Floranex) 1 tab BID PO Last administered on 09:33; Admin Dose 1 TAB; Start 12/11/16 at 21:00 Nifedipine (Procardia Xl) 60 mg BID PO Last administered on 12/16/16 09:33; Admin Dose 60 MG; Start 12/11/16 at 21:00 Famotidine (Pepcid) 20 mg DAILY PO Last administered on 12/16/16 09:32; Admin Dose 20 MG; Start 12/12/16 at 09:00 Guaifenesin (Robitussin Liquid Cup) 100 mg Q4H PRN PO COUGH Last administered on 12/16/16 12:31; Admin Dose 100 MG; Start 12/11/16 at 18:00 Enoxaparin Sodium (Lovenox) 30 mg DAILY SC Last administered on 12/16/16 09:37 ; Admin Dose 30 MG; Start 12/12/16 at 09:00 Linezolid (Zyvox) 600 mg BID PO Last administered on 12/16/16 09:33; Admin Dose 600 MG; Start 12/11/16 at 21:00 Diagnostic Test (Pha) (Accucheck) 1 ea 02 XX Last administered on 12/16/16 02: 00; Admin Dose 1 EA; Start 12/12/16 at 02:00 Levofloxacin (Levaquin) 500 mg DAILY@06 PO Last administered on 12/16/16 05:40 ; Admin Dose 500 MG; Start 12/12/16 at 06:00 Carvedilol (Coreg) 25 mg BID PO Last administered on 12/16/16 09:31; Admin Dose 25 MG; Start 12/11/16 at 21:00 Acetaminophen/ Hydrocodone Bitart ([place] (10/325)) 1 tab Q4H PRN PO PAIN Last administered on 12/14/16 15:12; Admin Dose 1 TAB; Start 12/11/16 at 21:00 Hydralazine HCl (Apresoline) 100 mg TID PO Last administered on 12/16/16 12:31 ; Admin Dose 100 MG; Start 12/12/16 at 21:00 Silver Sulfadiazine (Thermazene 1% 50 Gm) 1 applic BID TOP Last administered on 12/16/16 09:35; Admin Dose 1 APPLIC; Start 12/12/16 at 21:00 Clonidine (Catapres) 0.2 mg TID PO Last administered on 12/16/16 12:30; Admin Dose 0.2 MG; Start 12/14/16 at 21:00 Chlorthalidone (Hygroton) 25 mg DAILY PO Last administered on 12/16/16 09:33; Admin Dose 25 MG; Start 12/14/16 at 14:30 Cholecalciferol (Vitamin D) 2,000 unit DAILY PO Last administered on 12/16/16 09:34; Admin Dose 2,000 UNIT; Start 12/14/16 at 13:30 ALVIN TORRES MD Dec 16, 2016 16:30
--- NOTE | 2016-12-16 20:24 | CONS ---
Date/Time of Note Date/Time of Note DATE: 12/16/16 TIME: 20:21 Consult Date/Type/Reason Admit Date/Time Dec 11, 2016 at 16:26 Initial Consult Date nov, Type of Consultation: id Subjective feels good, no complaints, family in room Objective chest clear, no edema,cvs regular. Vital Signs Date Time Temp Pulse Resp B/P Pulse Ox O2 Delivery O2 Flow Rate FiO2 12/16/16 07:34 97.9 71 18 143/65 95 12/15/16 13:30 Room Air Intake and Output 12/15/16 12/15/16 12/16/16 15:00 23:00 07:00 Intake Total 620 ml 200 ml Output Total 650 ml 720 ml 1350 ml Balance -650 ml -100 ml -1150 ml Results/Medications Result Diagram: 12/16/16 0624 12/16/16 0624 Results 24 hrs Laboratory Tests Test 12/15/16 20:47 12/16/16 01:35 12/16/16 06:24 12/16/16 07:24 Bedside Glucose 234 H 208 182 Anion Gap 15 Band Neutrophils % 0.0 Basophils # 0.0 Basophils % 0.2 Blood Urea Nitrogen 23 H Calcium Level 9.1 Carbon Dioxide Level 30 Chloride Level 98 Creatinine 1.23 Eosinophils # 0.1 Eosinophils % 0.5 Glucose Level 173 Hematocrit 36.9 L Hemoglobin 12.2 L Lymphocytes # 1.0 Lymphocytes % 9.7 L Mean Corpuscular Hemoglobin 29.6 Mean Corpuscular Hemoglobin Concent 33.0 Mean Corpuscular Volume 89.7 Mean Platelet Volume 8.1 Monocytes # 0.7 Monocytes % 6.5 Neutrophils # 8.4 H Neutrophils % 83.1 H Nucleated Red Blood Cells # 0.0 Nucleated Red Blood Cells % 0.0 Platelet Count 212 Potassium Level 3.9 Red Blood Count 4.11 L Red Cell Distribution Width 13.9 Sodium Level 139 White Blood Count 10.2 Test 12/16/16 11:52 12/16/16 17:02 Bedside Glucose 181 175 Medications Current Medications Docusate Sodium (Colace) 100 mg BID PO Last administered on 12/16/16 09:32; Admin Dose 100 MG; Start 12/11/16 at 21:00 Senna (Senokot) 1 tab HS PO Last administered on 12/13/16 21:11; Admin Dose 1 TAB; Start 12/11/16 at 21:00 Acetaminophen (Tylenol Tab) 650 mg Q4H PRN PO PAIN; Start 12/11/16 at 17:30 Bisacodyl (Dulcolax Supp) 10 mg DAILY PRN [place] CONSTIPATION; Start 12/11/16 at 17 :30 Magnesium Hydroxide (Milk Of Mag) 30 ml BID PRN PO CONSTIPATION; Start at 17:30 Lactulose (Enulose) 20 gm DAILY PRN PO CONSTIPATION Last administered on 08:32; Admin Dose 20 GM; Start 12/11/16 at 17:30 Miscellaneous Information 1 ea NOTE XX ; Start 12/11/16 at 17:30 Glucose (Glutose) 15 gm Q15M PRN PO DECREASED GLUCOSE; Start 12/11/16 at 17:30 Glucose (Glutose) 22.5 gm Q15M PRN PO DECREASED GLUCOSE; Start 12/11/16 at 17: 30 Dextrose (D50w Syringe) 25 ml Q15M PRN IV DECREASED GLUCOSE; Start 12/11/16 at 17:30 Dextrose (D50w Syringe) 50 ml Q15M PRN IV DECREASED GLUCOSE; Start 12/11/16 at 17:30 Glucagon (Glucagen) 1 mg Q15M PRN IM DECREASED GLUCOSE; Start 12/11/16 at 17:30 Glucose (Glutose) 15 gm Q15M PRN BUCCAL DECREASED GLUCOSE; Start 12/11/16 at 17 :30 Prednisone (Prednisone) 5 mg DAILY PO Last administered on 12/16/16 09:32; Admin Dose 5 MG; Start 12/12/16 at 09:00 Tacrolimus (Prograf) 0.5 mg BID PO Last administered on 12/16/16 09:33; Admin Dose 0.5 MG; Start 12/11/16 at 21:00 Insulin Glargine (Lantus) 25 unit HS SC Last administered on 12/15/16 20:54; Admin Dose 25 UNIT; Start 12/11/16 at 21:00 Morphine Sulfate (morphine) 2 mg Q3H PRN IV PAIN 9-10 Last administered on 12/12 18:15; Admin Dose 2 MG; Start 12/11/16 at 17:30 Hydralazine HCl (Apresoline) 10 mg Q4H PRN IV SBP greater than 160 Last administered on 12/16/16 01:38; Admin Dose 10 MG; Start 12/11/16 at 17:30 Leflunomide (Arava) 20 mg DAILY PO Last administered on 12/16/16 09:34; Admin Dose 20 MG; Start 12/12/16 at 09:00 Lactobacillus Acidoph/Bulgaricus (Floranex) 1 tab BID PO Last administered on 09:33; Admin Dose 1 TAB; Start 12/11/16 at 21:00 Nifedipine (Procardia Xl) 60 mg BID PO Last administered on 12/16/16 09:33; Admin Dose 60 MG; Start 12/11/16 at 21:00 Famotidine (Pepcid) 20 mg DAILY PO Last administered on 12/16/16 09:32; Admin Dose 20 MG; Start 12/12/16 at 09:00 Guaifenesin (Robitussin Liquid Cup) 100 mg Q4H PRN PO COUGH Last administered on 12/16/16 12:31; Admin Dose 100 MG; Start 12/11/16 at 18:00 Enoxaparin Sodium (Lovenox) 30 mg DAILY SC Last administered on 12/16/16 09:37 ; Admin Dose 30 MG; Start 12/12/16 at 09:00 Linezolid (Zyvox) 600 mg BID PO Last administered on 12/16/16 09:33; Admin Dose 600 MG; Start 12/11/16 at 21:00 Diagnostic Test (Pha) (Accucheck) 1 ea 02 XX Last administered on 12/16/16 02: 00; Admin Dose 1 EA; Start 12/12/16 at 02:00 Levofloxacin (Levaquin) 500 mg DAILY@06 PO Last administered on 12/16/16 05:40 ; Admin Dose 500 MG; Start 12/12/16 at 06:00 Carvedilol (Coreg) 25 mg BID PO Last administered on 12/16/16 09:31; Admin Dose 25 MG; Start 12/11/16 at 21:00 Acetaminophen/ Hydrocodone Bitart ([place] (10/325)) 1 tab Q4H PRN PO PAIN Last administered on 12/14/16 15:12; Admin Dose 1 TAB; Start 12/11/16 at 21:00 Hydralazine HCl (Apresoline) 100 mg TID PO Last administered on 12/16/16 12:31 ; Admin Dose 100 MG; Start 12/12/16 at 21:00 Silver Sulfadiazine (Thermazene 1% 50 Gm) 1 applic BID TOP Last administered on 12/16/16 09:35; Admin Dose 1 APPLIC; Start 12/12/16 at 21:00 Clonidine (Catapres) 0.2 mg TID PO Last administered on 12/16/16 12:30; Admin Dose 0.2 MG; Start 12/14/16 at 21:00 Chlorthalidone (Hygroton) 25 mg DAILY PO Last administered on 12/16/16 09:33; Admin Dose 25 MG; Start 12/14/16 at 14:30 Cholecalciferol (Vitamin D) 2,000 unit DAILY PO Last administered on 12/16/16 09:34; Admin Dose 2,000 UNIT; Start 12/14/16 at 13:30 Assessment/Plan Chief Complaint/Hosp Course renal tx 2 years hypertension iddm h/o cva post ltbig toe amputation Problems: Additional Assessment/Plan hypertension uncontrolled, increase adalat cc to 90 bid, decrease to 2gm na diet., discussed with family LUANA DAVIS MD Dec 16, 2016 20:24
[2016-12-16] MEDS: SENNA TAB PO SCH (20:48)
[2016-12-16] MEDS: INSULIN GLARGINE [LANtus] 3 ML PEN SC SCH (21:19)
[2016-12-17] MEDS: ACCUCHECK AT 2AM (Patients on SS coverage) XX SCH (02:00)
[2016-12-17] MEDS: LEVOFLOXACIN 500 MG TAB PO SCH (06:39)
[2016-12-17 07:30] VITALS: BP 203/88; RESP 18
[2016-12-17 08:00] VITALS: BP 203/88; PULSE 72; RESP 18
[2016-12-17] MEDS: INSULIN ASPART [NOVOLOG] 3 ML PEN SC SCH ×4 (08:55→22:05)
[2016-12-17] MEDS: ENOXAPARIN 30 MG/0.3 ML SYG SC SCH (08:57)
[2016-12-17] MEDS: SILVER SULFADIAZINE 1% 50 GM CR TOP SCH ×2 (09:00→21:16)
[2016-12-17] MEDS: DOCUSATE SODIUM 100 MG CAP PO SCH ×2 (09:00→21:10)
[2016-12-17] MEDS ORDERED: NIFEdipine (XL) 90 MG TAB PO SCH (09:00)
[2016-12-17 09:04] VITALS: BP 137/65; PULSE 80
[2016-12-17] MEDS: FAMOTIDINE 20 MG TAB PO SCH (09:06)
[2016-12-17] MEDS: CHLORTHALIDONE 25 MG TAB PO SCH (09:07)
[2016-12-17] MEDS: LACTOBACILLUS CHEW TAB PO SCH ×2 (09:08→21:10)
[2016-12-17] MEDS: TACROLIMUS 0.5 MG CAP PO SCH ×2 (09:08→21:10)
[2016-12-17] MEDS: ZYVOX 600 MG TAB PO SCH ×2 (09:08→21:10)
[2016-12-17] MEDS: CHOLECALCIFEROL 2,000 UNIT CAP PO SCH (09:08)
[2016-12-17] MEDS: predniSONE 5 MG TAB PO SCH (09:08)
[2016-12-17] MEDS: LEFLUNOMIDE 10 MG TAB PO SCH (09:08)
--- NOTE | 2016-12-17 12:23 | PN ---
Date/Time of Note Date/Time of Note DATE: 12/17/16 TIME: 12:22 Assessment/Plan VTE Prophylaxis VTE Prophylaxis Intervention: LMWH Lines/Catheters IV [facility] Urinary Cath still in place: No Assessment/Plan Chief Complaint/Hosp Course ASSESSMENT AND PLAN 1. 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 Continue antibiotics. 2. Cellulitis, as above. 3. Diabetes mellitus type 2. Continue Lantus, insulin sliding scale, and low carb diet. 4. History of kidney transplant. Nephrology has been consulted. Continue Prograf and steroids. 5. Essential hypertension. Continue Coreg, nifedipine, and clonidine. Continue to monitor. 6. For deep venous thrombosis prophylaxis, on Lovenox. 7. For gastrointestinal prophylaxis, on Pepcid. We will continue to monitor patient closely. Further recommendations, management, and treatment as per clinical course. Problems: Subjective 24 Hr Interval Summary Free Text/Dictation Denies of any chest pain or shortness of breath Denies of any abdominal pain No extremity discomfort Exam/Review of Systems Vital Signs Vitals Vital Signs Date Time Temp Pulse Resp B/P Pulse Ox O2 Delivery O2 Flow Rate FiO2 12/17/16 09:04 80 137/65 12/17/16 08:00 98.4 18 99 Room Air Intake and Output 12/16/16 12/16/16 12/17/16 15:00 23:00 07:00 Intake Total 480 ml 240 ml 720 ml Output Total 600 ml 150 ml 300 ml Balance -120 ml 90 ml 420 ml Exam General: The patient is well-developed, Not in acute distress. HEENT: Atraumatic, normocephalic. The pupils are equal and round . Neck: Supple with full range of motion. Chest: Normal expansion of the thorax during inspiration Lungs: Clear to auscultation bilaterally Heart: Normal S1-S2, Regular rhythm and rate. Abdomen: Soft , nontender, nondistended , bowel sounds are present. Extremities: Great toe / foot and dry dressing, no edema no cyanosis Neurologic: Normal mental status,The patient is awake, alert and oriented . Results Result Diagram: 12/16/16 0624 12/16/16 0624 Results 24 hrs Laboratory Tests Test 12/16/16 17:02 12/16/16 20:33 12/17/16 03:04 12/17/16 07:40 Bedside Glucose 175 278 H 128 121 Test 12/17/16 12:15 Bedside Glucose 263 H Medications Medications Current Medications Docusate Sodium (Colace) 100 mg BID PO Last administered on 12/16/16 20:48; Admin Dose 100 MG; Start 12/11/16 at 21:00 Senna (Senokot) 1 tab HS PO Last administered on 12/16/16 20:48; Admin Dose 1 TAB; Start 12/11/16 at 21:00 Acetaminophen (Tylenol Tab) 650 mg Q4H PRN PO PAIN; Start 12/11/16 at 17:30 Bisacodyl (Dulcolax Supp) 10 mg DAILY PRN [place] CONSTIPATION; Start 12/11/16 at 17 :30 Magnesium Hydroxide (Milk Of Mag) 30 ml BID PRN PO CONSTIPATION; Start at 17:30 Lactulose (Enulose) 20 gm DAILY PRN PO CONSTIPATION Last administered on 08:32; Admin Dose 20 GM; Start 12/11/16 at 17:30 Miscellaneous Information 1 ea NOTE XX ; Start 12/11/16 at 17:30 Glucose (Glutose) 15 gm Q15M PRN PO DECREASED GLUCOSE; Start 12/11/16 at 17:30 Glucose (Glutose) 22.5 gm Q15M PRN PO DECREASED GLUCOSE; Start 12/11/16 at 17: 30 Dextrose (D50w Syringe) 25 ml Q15M PRN IV DECREASED GLUCOSE; Start 12/11/16 at 17:30 Dextrose (D50w Syringe) 50 ml Q15M PRN IV DECREASED GLUCOSE; Start 12/11/16 at 17:30 Glucagon (Glucagen) 1 mg Q15M PRN IM DECREASED GLUCOSE; Start 12/11/16 at 17:30 Glucose (Glutose) 15 gm Q15M PRN BUCCAL DECREASED GLUCOSE; Start 12/11/16 at 17 :30 Prednisone (Prednisone) 5 mg DAILY PO Last administered on 12/17/16 09:08; Admin Dose 5 MG; Start 12/12/16 at 09:00 Tacrolimus (Prograf) 0.5 mg BID PO Last administered on 12/17/16 09:08; Admin Dose 0.5 MG; Start 12/11/16 at 21:00 Insulin Glargine (Lantus) 25 unit HS SC Last administered on 12/16/16 21:19; Admin Dose 25 UNIT; Start 12/11/16 at 21:00 Morphine Sulfate (morphine) 2 mg Q3H PRN IV PAIN 9-10 Last administered on 12/12 18:15; Admin Dose 2 MG; Start 12/11/16 at 17:30 Hydralazine HCl (Apresoline) 10 mg Q4H PRN IV SBP greater than 160 Last administered on 12/16/16 01:38; Admin Dose 10 MG; Start 12/11/16 at 17:30 Leflunomide (Arava) 20 mg DAILY PO Last administered on 12/17/16 09:08; Admin Dose 20 MG; Start 12/12/16 at 09:00 Lactobacillus Acidoph/Bulgaricus (Floranex) 1 tab BID PO Last administered on 09:08; Admin Dose 1 TAB; Start 12/11/16 at 21:00 Famotidine (Pepcid) 20 mg DAILY PO Last administered on 12/17/16 09:06; Admin Dose 20 MG; Start 12/12/16 at 09:00 Guaifenesin (Robitussin Liquid Cup) 100 mg Q4H PRN PO COUGH Last administered on 12/16/16 12:31; Admin Dose 100 MG; Start 12/11/16 at 18:00 Enoxaparin Sodium (Lovenox) 30 mg DAILY SC Last administered on 12/17/16 08:57 ; Admin Dose 30 MG; Start 12/12/16 at 09:00 Linezolid (Zyvox) 600 mg BID PO Last administered on 12/17/16 09:08; Admin Dose 600 MG; Start 12/11/16 at 21:00 Diagnostic Test (Pha) (Accucheck) 1 ea 02 XX Last administered on 12/17/16 02: 00; Admin Dose 1 EA; Start 12/12/16 at 02:00 Levofloxacin (Levaquin) 500 mg DAILY@06 PO Last administered on 12/17/16 06:39 ; Admin Dose 500 MG; Start 12/12/16 at 06:00 Carvedilol (Coreg) 25 mg BID PO Last administered on 12/17/16 09:06; Admin Dose 25 MG; Start 12/11/16 at 21:00 Acetaminophen/ Hydrocodone Bitart ([place] (10/325)) 1 tab Q4H PRN PO PAIN Last administered on 12/14/16 15:12; Admin Dose 1 TAB; Start 12/11/16 at 21:00 Hydralazine HCl (Apresoline) 100 mg TID PO Last administered on 12/17/16 09:07 ; Admin Dose 100 MG; Start 12/12/16 at 21:00 Silver Sulfadiazine (Thermazene 1% 50 Gm) 1 applic BID TOP Last administered on 12/16/16 21:20; Admin Dose 1 APPLIC; Start 12/12/16 at 21:00 Clonidine (Catapres) 0.2 mg TID PO Last administered on 12/17/16 09:07; Admin Dose 0.2 MG; Start 12/14/16 at 21:00 Chlorthalidone (Hygroton) 25 mg DAILY PO Last administered on 12/17/16 09:07; Admin Dose 25 MG; Start 12/14/16 at 14:30 Cholecalciferol (Vitamin D) 2,000 unit DAILY PO Last administered on 12/17/16 09:08; Admin Dose 2,000 UNIT; Start 12/14/16 at 13:30 Nifedipine (Procardia Xl) 90 mg BID PO ; Start 12/17/16 at 09:00; Status UNV Miscellaneous Information (*Order Clarification Bulletin) MEDICATION REQUIRES CLARIFICATI... Q8H XX ; Start 12/16/16 at 23:30 ALVIN TORRES MD Dec 17, 2016 12:23
--- NOTE | 2016-12-17 13:01 | PN ---
Date/Time of Note Date/Time of Note DATE: 12/17/16 TIME: 12:53 Assessment/Plan VTE Prophylaxis VTE Prophylaxis Intervention: LMWH Lines/Catheters IV Catheter Type (from Nrsg): Saline Lock Urinary Cath still in place: No Assessment/Plan Assessment/Plan 1. Left foot gangrene/osteomyelitis status post great toe partial hallux amputation, LLE cellulitis, with impaired mobility/gait/ADLs. Continue PT/OT. Stand by assistance for wheelchair mobility, min assist for transfers. Medical management per podiatry and infectious disease teams. Acute post op pain controlled. 2. Diabetes mellitus with diabetic neuropathy. Continue insulin regimen per internal medicine. 3. History of cerebrovascular accident with residual right-sided weakness. 4. History of kidney transplant. Continue medical management per nephrology. 5. Hypertension. BP uncontrolled, internal medicine and nephrology adjusting medications. Subjective 24 Hr Interval Summary Free Text/Dictation Rehab progress note Subjective: Reports mild pain in left foot, overall reports pain controlled. Nursing reports elevated BP this AM, improved after rechecked, patient reported to be asymptomatic. ROS: Denies chest pain, no palpitations, no headache, no dizziness, no shortness of breath, no chills, no abdominal pain, no nausea or vomiting. Exam/Review of Systems Vital Signs Vitals Vital Signs Date Time Temp Pulse Resp B/P Pulse Ox O2 Delivery O2 Flow Rate FiO2 12/17/16 09:04 80 137/65 12/17/16 08:00 98.4 18 99 Room Air Intake and Output 12/16/16 12/16/16 12/17/16 15:00 23:00 07:00 Intake Total 480 ml 240 ml 720 ml Output Total 600 ml 150 ml 300 ml Balance -120 ml 90 ml 420 ml Exam General: Awake, alert, no acute distress CV: Regular rate, s1s2 Lungs: Respirations nonlabored, clear to auscultation bilaterally Abdomen soft, nontender, +bowel sounds Extremities: Left foot dressing in place clean. No edema. Neuro: Follows simple commands. Antigravity strength L HF/KE. Results Result Diagram: 12/16/16 0624 12/16/16 0624 Results 24 hrs Laboratory Tests Test 12/16/16 17:02 12/16/16 20:33 12/17/16 03:04 12/17/16 07:40 Bedside Glucose 175 278 H 128 121 Test 12/17/16 12:15 Bedside Glucose 263 H Medications Medications Current Medications Docusate Sodium (Colace) 100 mg BID PO Last administered on 12/16/16 20:48; Admin Dose 100 MG; Start 12/11/16 at 21:00 Senna (Senokot) 1 tab HS PO Last administered on 12/16/16 20:48; Admin Dose 1 TAB; Start 12/11/16 at 21:00 Acetaminophen (Tylenol Tab) 650 mg Q4H PRN PO PAIN; Start 12/11/16 at 17:30 Bisacodyl (Dulcolax Supp) 10 mg DAILY PRN [place] CONSTIPATION; Start 12/11/16 at 17 :30 Magnesium Hydroxide (Milk Of Mag) 30 ml BID PRN PO CONSTIPATION; Start at 17:30 Lactulose (Enulose) 20 gm DAILY PRN PO CONSTIPATION Last administered on 08:32; Admin Dose 20 GM; Start 12/11/16 at 17:30 Miscellaneous Information 1 ea NOTE XX ; Start 12/11/16 at 17:30 Glucose (Glutose) 15 gm Q15M PRN PO DECREASED GLUCOSE; Start 12/11/16 at 17:30 Glucose (Glutose) 22.5 gm Q15M PRN PO DECREASED GLUCOSE; Start 12/11/16 at 17: 30 Dextrose (D50w Syringe) 25 ml Q15M PRN IV DECREASED GLUCOSE; Start 12/11/16 at 17:30 Dextrose (D50w Syringe) 50 ml Q15M PRN IV DECREASED GLUCOSE; Start 12/11/16 at 17:30 Glucagon (Glucagen) 1 mg Q15M PRN IM DECREASED GLUCOSE; Start 12/11/16 at 17:30 Glucose (Glutose) 15 gm Q15M PRN BUCCAL DECREASED GLUCOSE; Start 12/11/16 at 17 :30 Prednisone (Prednisone) 5 mg DAILY PO Last administered on 12/17/16 09:08; Admin Dose 5 MG; Start 12/12/16 at 09:00 Tacrolimus (Prograf) 0.5 mg BID PO Last administered on 12/17/16 09:08; Admin Dose 0.5 MG; Start 12/11/16 at 21:00 Insulin Glargine (Lantus) 25 unit HS SC Last administered on 12/16/16 21:19; Admin Dose 25 UNIT; Start 12/11/16 at 21:00 Morphine Sulfate (morphine) 2 mg Q3H PRN IV PAIN 9-10 Last administered on 12/12 18:15; Admin Dose 2 MG; Start 12/11/16 at 17:30 Hydralazine HCl (Apresoline) 10 mg Q4H PRN IV SBP greater than 160 Last administered on 12/16/16 01:38; Admin Dose 10 MG; Start 12/11/16 at 17:30 Leflunomide (Arava) 20 mg DAILY PO Last administered on 12/17/16 09:08; Admin Dose 20 MG; Start 12/12/16 at 09:00 Lactobacillus Acidoph/Bulgaricus (Floranex) 1 tab BID PO Last administered on 09:08; Admin Dose 1 TAB; Start 12/11/16 at 21:00 Famotidine (Pepcid) 20 mg DAILY PO Last administered on 12/17/16 09:06; Admin Dose 20 MG; Start 12/12/16 at 09:00 Guaifenesin (Robitussin Liquid Cup) 100 mg Q4H PRN PO COUGH Last administered on 12/16/16 12:31; Admin Dose 100 MG; Start 12/11/16 at 18:00 Enoxaparin Sodium (Lovenox) 30 mg DAILY SC Last administered on 12/17/16 08:57 ; Admin Dose 30 MG; Start 12/12/16 at 09:00 Linezolid (Zyvox) 600 mg BID PO Last administered on 12/17/16 09:08; Admin Dose 600 MG; Start 12/11/16 at 21:00 Diagnostic Test (Pha) (Accucheck) 1 ea 02 XX Last administered on 12/17/16 02: 00; Admin Dose 1 EA; Start 12/12/16 at 02:00 Levofloxacin (Levaquin) 500 mg DAILY@06 PO Last administered on 12/17/16 06:39 ; Admin Dose 500 MG; Start 12/12/16 at 06:00 Carvedilol (Coreg) 25 mg BID PO Last administered on 12/17/16 09:06; Admin Dose 25 MG; Start 12/11/16 at 21:00 Acetaminophen/ Hydrocodone Bitart ([place] (10/325)) 1 tab Q4H PRN PO PAIN Last administered on 12/14/16 15:12; Admin Dose 1 TAB; Start 12/11/16 at 21:00 Hydralazine HCl (Apresoline) 100 mg TID PO Last administered on 12/17/16 09:07 ; Admin Dose 100 MG; Start 12/12/16 at 21:00 Silver Sulfadiazine (Thermazene 1% 50 Gm) 1 applic BID TOP Last administered on 12/16/16 21:20; Admin Dose 1 APPLIC; Start 12/12/16 at 21:00 Clonidine (Catapres) 0.2 mg TID PO Last administered on 12/17/16 09:07; Admin Dose 0.2 MG; Start 12/14/16 at 21:00 Chlorthalidone (Hygroton) 25 mg DAILY PO Last administered on 12/17/16 09:07; Admin Dose 25 MG; Start 12/14/16 at 14:30 Cholecalciferol (Vitamin D) 2,000 unit DAILY PO Last administered on 12/17/16 09:08; Admin Dose 2,000 UNIT; Start 12/14/16 at 13:30 Nifedipine (Procardia Xl) 90 mg BID PO ; Start 12/17/16 at 09:00; Status UNV Miscellaneous Information (*Order Clarification Bulletin) MEDICATION REQUIRES CLARIFICATI... Q8H XX ; Start 12/16/16 at 23:30 KAYCEE MAYES Dec 17, 2016 13:01
[2016-12-17 19:29] VITALS: BP 188/84; RESP 19
[2016-12-17] MEDS: SENNA TAB PO SCH (21:10)
[2016-12-17] MEDS: INSULIN GLARGINE [LANtus] 3 ML PEN SC SCH (22:03)
[2016-12-17] MEDS: NIFEdipine (XL) 60 MG TAB PO SCH (23:19)
[2016-12-18] MEDS: LEVOFLOXACIN 500 MG TAB PO SCH (06:51)
[2016-12-18 07:30] VITALS: BP 184/86; RESP 18
[2016-12-18] MEDS: ACCUCHECK AT 2AM (Patients on SS coverage) XX SCH (07:30)
[2016-12-18] MEDS: INSULIN ASPART [NOVOLOG] 3 ML PEN SC SCH ×4 (07:35→20:51)
[2016-12-18 08:00] VITALS: BP 184/86; PULSE 80; RESP 18
[2016-12-18 09:00] VITALS: BP 142/82; RESP 18
[2016-12-18 09:04] VITALS: BP 165/79; PULSE 72
[2016-12-18] MEDS: CHLORTHALIDONE 25 MG TAB PO SCH (09:07)
[2016-12-18] MEDS: DOCUSATE SODIUM 100 MG CAP PO SCH ×2 (09:40→20:41)
[2016-12-18] MEDS: predniSONE 5 MG TAB PO SCH (09:40)
[2016-12-18] MEDS: LACTOBACILLUS CHEW TAB PO SCH ×2 (09:40→20:42)
[2016-12-18] MEDS: ZYVOX 600 MG TAB PO SCH ×2 (09:40→20:43)
[2016-12-18] MEDS: TACROLIMUS 0.5 MG CAP PO SCH ×2 (09:40→20:42)
[2016-12-18] MEDS: FAMOTIDINE 20 MG TAB PO SCH (09:40)
[2016-12-18] MEDS: CHOLECALCIFEROL 2,000 UNIT CAP PO SCH (09:40)
[2016-12-18] MEDS: NIFEdipine (XL) 60 MG TAB PO SCH ×2 (09:41→20:43)
[2016-12-18] MEDS: LEFLUNOMIDE 10 MG TAB PO SCH (09:41)
[2016-12-18] MEDS: SILVER SULFADIAZINE 1% 50 GM CR TOP SCH ×2 (09:42→22:01)
[2016-12-18] MEDS: ENOXAPARIN 30 MG/0.3 ML SYG SC SCH (09:48)
--- NOTE | 2016-12-18 10:51 | PN ---
Date/Time of Note Date/Time of Note DATE: 12/18/16 TIME: 10:43 Assessment/Plan VTE Prophylaxis VTE Prophylaxis Intervention: LMWH Lines/Catheters IV Catheter Type (from Nrs): Saline Lock Urinary Cath still in place: No Assessment/Plan Assessment/Plan 1. Left foot gangrene/osteomyelitis status post great toe partial hallux amputation, LLE cellulitis, with impaired mobility/gait/ADLs. Continue PT/OT. Supervision for grooming and upper body dressing, min assist for lower body dressing. Continue medical management per podiatry and infectious disease teams , remains on antibiotics. Acute post op pain controlled, continue prn norco. 2. Diabetes mellitus with diabetic neuropathy. Continue to monitor blood sugars. On insulin regimen per internal medicine. 3. History of CVA with residual right-sided weakness. 4. History of kidney transplant. Continue management per nephrology. 5. Hypertension. Continue to monitor BP, intermittently elevated, internal medicine/nephrology following and adjusting medications. Subjective 24 Hr Interval Summary Free Text/Dictation Rehab progress note Subjective: Denies any acute complaints. Denies any pain in left foot currently. ROS: Denies headache, no dizziness, no chest pain, no palpitations, no shortness of breath, no abdominal pain, no nausea or vomiting. Reports moving bowels. Exam/Review of Systems Vital Signs Vitals Vital Signs Date Time Temp Pulse Resp B/P Pulse Ox O2 Delivery O2 Flow Rate FiO2 12/18/16 07:30 98.5 70 18 184/86 96 12/17/16 08:00 Room Air Intake and Output 12/17/16 12/17/16 12/18/16 15:00 23:00 07:00 Intake Total 1170 ml 380 ml Output Total 670 ml 300 ml Balance 500 ml 80 ml Exam General: Awake, alert, no acute distress CV: Regular rate, s1s2 Lungs: Respirations nonlabored, no wheezing or crackles. Abdomen soft, nontender, +bowel sounds Extremities: Left foot dressing in place clean and dry. No new swelling. Neuro: No new focal changes. Follows simple commands. Results Result Diagram: 12/16/16 0624 12/16/16 0624 Results 24 hrs Laboratory Tests Test 12/17/16 12:15 12/17/16 17:23 12/17/16 21:07 12/18/16 02:51 Bedside Glucose 263 H 151 197 120 Test 12/18/16 07:56 Bedside Glucose 117 Medications Medications Current Medications Docusate Sodium (Colace) 100 mg BID PO Last administered on 12/18/16 09:40; Admin Dose 100 MG; Start 12/11/16 at 21:00 Senna (Senokot) 1 tab HS PO Last administered on 12/17/16 21:10; Admin Dose 1 TAB; Start 12/11/16 at 21:00 Acetaminophen (Tylenol Tab) 650 mg Q4H PRN PO PAIN; Start 12/11/16 at 17:30 Bisacodyl (Dulcolax Supp) 10 mg DAILY PRN [place] CONSTIPATION; Start 12/11/16 at 17 :30 Magnesium Hydroxide (Milk Of Mag) 30 ml BID PRN PO CONSTIPATION; Start at 17:30 Lactulose (Enulose) 20 gm DAILY PRN PO CONSTIPATION Last administered on 08:32; Admin Dose 20 GM; Start 12/11/16 at 17:30 Miscellaneous Information 1 ea NOTE XX ; Start 12/11/16 at 17:30 Glucose (Glutose) 15 gm Q15M PRN PO DECREASED GLUCOSE; Start 12/11/16 at 17:30 Glucose (Glutose) 22.5 gm Q15M PRN PO DECREASED GLUCOSE; Start 12/11/16 at 17: 30 Dextrose (D50w Syringe) 25 ml Q15M PRN IV DECREASED GLUCOSE; Start 12/11/16 at 17:30 Dextrose (D50w Syringe) 50 ml Q15M PRN IV DECREASED GLUCOSE; Start 12/11/16 at 17:30 Glucagon (Glucagen) 1 mg Q15M PRN IM DECREASED GLUCOSE; Start 12/11/16 at 17:30 Glucose (Glutose) 15 gm Q15M PRN BUCCAL DECREASED GLUCOSE; Start 12/11/16 at 17 :30 Prednisone (Prednisone) 5 mg DAILY PO Last administered on 12/18/16 09:40; Admin Dose 5 MG; Start 12/12/16 at 09:00 Tacrolimus (Prograf) 0.5 mg BID PO Last administered on 12/18/16 09:40; Admin Dose 0.5 MG; Start 12/11/16 at 21:00 Insulin Glargine (Lantus) 25 unit HS SC Last administered on 12/17/16 22:03; Admin Dose 25 UNIT; Start 12/11/16 at 21:00 Morphine Sulfate (morphine) 2 mg Q3H PRN IV PAIN 9-10 Last administered on 12/12 18:15; Admin Dose 2 MG; Start 12/11/16 at 17:30 Hydralazine HCl (Apresoline) 10 mg Q4H PRN IV SBP greater than 160 Last administered on 12/16/16 01:38; Admin Dose 10 MG; Start 12/11/16 at 17:30 Leflunomide (Arava) 20 mg DAILY PO Last administered on 12/18/16 09:41; Admin Dose 20 MG; Start 12/12/16 at 09:00 Lactobacillus Acidoph/Bulgaricus (Floranex) 1 tab BID PO Last administered on 09:40; Admin Dose 1 TAB; Start 12/11/16 at 21:00 Famotidine (Pepcid) 20 mg DAILY PO Last administered on 12/18/16 09:40; Admin Dose 20 MG; Start 12/12/16 at 09:00 Guaifenesin (Robitussin Liquid Cup) 100 mg Q4H PRN PO COUGH Last administered on 12/16/16 12:31; Admin Dose 100 MG; Start 12/11/16 at 18:00 Enoxaparin Sodium (Lovenox) 30 mg DAILY SC Last administered on 12/18/16 09:48 ; Admin Dose 30 MG; Start 12/12/16 at 09:00 Linezolid (Zyvox) 600 mg BID PO Last administered on 12/18/16 09:40; Admin Dose 600 MG; Start 12/11/16 at 21:00 Diagnostic Test (Pha) (Accucheck) 1 ea 02 XX Last administered on 12/18/16 07: 30; Admin Dose 1 EA; Start 12/12/16 at 02:00 Levofloxacin (Levaquin) 500 mg DAILY@06 PO Last administered on 12/18/16 06:51 ; Admin Dose 500 MG; Start 12/12/16 at 06:00 Carvedilol (Coreg) 25 mg BID PO Last administered on 12/18/16 09:08; Admin Dose 25 MG; Start 12/11/16 at 21:00 Acetaminophen/ Hydrocodone Bitart ([place] (10/325)) 1 tab Q4H PRN PO PAIN Last administered on 12/14/16 15:12; Admin Dose 1 TAB; Start 12/11/16 at 21:00 Hydralazine HCl (Apresoline) 100 mg TID PO Last administered on 12/18/16 09:07 ; Admin Dose 100 MG; Start 12/12/16 at 21:00 Silver Sulfadiazine (Thermazene 1% 50 Gm) 1 applic BID TOP Last administered on 12/18/16 09:42; Admin Dose 1 APPLIC; Start 12/12/16 at 21:00 Clonidine (Catapres) 0.2 mg TID PO Last administered on 12/18/16 09:07; Admin Dose 0.2 MG; Start 12/14/16 at 21:00 Chlorthalidone (Hygroton) 25 mg DAILY PO Last administered on 12/18/16 09:07; Admin Dose 25 MG; Start 12/14/16 at 14:30 Cholecalciferol (Vitamin D) 2,000 unit DAILY PO Last administered on 12/18/16 09:40; Admin Dose 2,000 UNIT; Start 12/14/16 at 13:30 Miscellaneous Information (*Order Clarification Bulletin) MEDICATION REQUIRES CLARIFICATI... Q8H XX ; Start 12/16/16 at 23:30 Nifedipine (Procardia Xl) 60 mg BID PO Last administered on 12/18/16 09:41; Admin Dose 60 MG; Start 12/17/16 at 22:30 KAYCEE MAYES Dec 18, 2016 10:51
--- NOTE | 2016-12-18 12:24 | PN ---
Date/Time of Note Date/Time of Note DATE: 12/18/16 TIME: 12:22 Assessment/Plan VTE Prophylaxis VTE Prophylaxis Intervention: LMWH Lines/Catheters IV [facility] Type [facility]from [facility] Saline Lock Urinary Cath still in place: No Assessment/Plan Chief Complaint/Hosp Course ASSESSMENT AND PLAN 1. 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 Continue antibiotics. 2. Cellulitis, as above. 3. Diabetes mellitus type 2. Continue Lantus, insulin sliding scale, and low carb diet. 4. History of kidney transplant. Nephrology has been consulted. Continue Prograf and steroids. 5. Essential hypertension. Continue Coreg, nifedipine, and clonidine. Continue to monitor. 6. For deep venous thrombosis prophylaxis, on Lovenox. 7. For gastrointestinal prophylaxis, on Pepcid. We will continue to monitor patient closely. Further recommendations, management, and treatment as per clinical course. Problems: Subjective 24 Hr Interval Summary Free Text/Dictation No acute changes Patient denies any chest pain or shortness of breath Tolerating oral intake Exam/Review of Systems Vital Signs Vitals Vital Signs Date Time Temp Pulse Resp B/P Pulse Ox O2 Delivery O2 Flow Rate FiO2 12/18/16 07:30 98.5 70 18 184/86 96 12/17/16 08:00 Room Air Intake and Output 12/17/16 12/17/16 12/18/16 15:00 23:00 07:00 Intake Total 1170 ml 380 ml Output Total 670 ml 300 ml Balance 500 ml 80 ml Exam General: The patient is well-developed, Not in acute distress. HEENT: Atraumatic, normocephalic. The pupils are equal and round . Neck: Supple with full range of motion. Chest: Normal expansion of the thorax during inspiration Lungs: Clear to auscultation bilaterally Heart: Normal S1-S2, Regular rhythm and rate. Abdomen: Soft , nontender, nondistended , bowel sounds are present. Extremities: Left foot great toe and dry dressing, no edema no cyanosis Neurologic: Normal mental status,The patient is awake, alert and oriented . Results Result Diagram: 12/16/16 0624 12/16/16 0624 Results 24 hrs Laboratory Tests Test 12/17/16 17:23 12/17/16 21:07 12/18/16 02:51 12/18/16 07:56 Bedside Glucose 151 197 120 117 Test 12/18/16 11:55 Bedside Glucose 169 Medications Medications Current Medications Docusate Sodium (Colace) 100 mg BID PO Last administered on 12/18/16 09:40; Admin Dose 100 MG; Start 12/11/16 at 21:00 Senna (Senokot) 1 tab HS PO Last administered on 12/17/16 21:10; Admin Dose 1 TAB; Start 12/11/16 at 21:00 Acetaminophen (Tylenol Tab) 650 mg Q4H PRN PO PAIN; Start 12/11/16 at 17:30 Bisacodyl (Dulcolax Supp) 10 mg DAILY PRN [place] CONSTIPATION; Start 12/11/16 at 17 :30 Magnesium Hydroxide (Milk Of Mag) 30 ml BID PRN PO CONSTIPATION; Start at 17:30 Lactulose (Enulose) 20 gm DAILY PRN PO CONSTIPATION Last administered on 08:32; Admin Dose 20 GM; Start 12/11/16 at 17:30 Miscellaneous Information 1 ea NOTE XX ; Start 12/11/16 at 17:30 Glucose (Glutose) 15 gm Q15M PRN PO DECREASED GLUCOSE; Start 12/11/16 at 17:30 Glucose (Glutose) 22.5 gm Q15M PRN PO DECREASED GLUCOSE; Start 12/11/16 at 17: 30 Dextrose (D50w Syringe) 25 ml Q15M PRN IV DECREASED GLUCOSE; Start 12/11/16 at 17:30 Dextrose (D50w Syringe) 50 ml Q15M PRN IV DECREASED GLUCOSE; Start 12/11/16 at 17:30 Glucagon (Glucagen) 1 mg Q15M PRN IM DECREASED GLUCOSE; Start 12/11/16 at 17:30 Glucose (Glutose) 15 gm Q15M PRN BUCCAL DECREASED GLUCOSE; Start 12/11/16 at 17 :30 Prednisone (Prednisone) 5 mg DAILY PO Last administered on 12/18/16 09:40; Admin Dose 5 MG; Start 12/12/16 at 09:00 Tacrolimus (Prograf) 0.5 mg BID PO Last administered on 12/18/16 09:40; Admin Dose 0.5 MG; Start 12/11/16 at 21:00 Insulin Glargine (Lantus) 25 unit HS SC Last administered on 12/17/16 22:03; Admin Dose 25 UNIT; Start 12/11/16 at 21:00 Morphine Sulfate (morphine) 2 mg Q3H PRN IV PAIN 9-10 Last administered on 12/12 18:15; Admin Dose 2 MG; Start 12/11/16 at 17:30 Hydralazine HCl (Apresoline) 10 mg Q4H PRN IV SBP greater than 160 Last administered on 12/16/16 01:38; Admin Dose 10 MG; Start 12/11/16 at 17:30 Leflunomide (Arava) 20 mg DAILY PO Last administered on 12/18/16 09:41; Admin Dose 20 MG; Start 12/12/16 at 09:00 Lactobacillus Acidoph/Bulgaricus (Floranex) 1 tab BID PO Last administered on 09:40; Admin Dose 1 TAB; Start 12/11/16 at 21:00 Famotidine (Pepcid) 20 mg DAILY PO Last administered on 12/18/16 09:40; Admin Dose 20 MG; Start 12/12/16 at 09:00 Guaifenesin (Robitussin Liquid Cup) 100 mg Q4H PRN PO COUGH Last administered on 12/16/16 12:31; Admin Dose 100 MG; Start 12/11/16 at 18:00 Enoxaparin Sodium (Lovenox) 30 mg DAILY SC Last administered on 12/18/16 09:48 ; Admin Dose 30 MG; Start 12/12/16 at 09:00 Linezolid (Zyvox) 600 mg BID PO Last administered on 12/18/16 09:40; Admin Dose 600 MG; Start 12/11/16 at 21:00 Diagnostic Test (Pha) (Accucheck) 1 ea 02 XX Last administered on 12/18/16 07: 30; Admin Dose 1 EA; Start 12/12/16 at 02:00 Levofloxacin (Levaquin) 500 mg DAILY@06 PO Last administered on 12/18/16 06:51 ; Admin Dose 500 MG; Start 12/12/16 at 06:00 Carvedilol (Coreg) 25 mg BID PO Last administered on 12/18/16 09:08; Admin Dose 25 MG; Start 12/11/16 at 21:00 Acetaminophen/ Hydrocodone Bitart ([place] (10/325)) 1 tab Q4H PRN PO PAIN Last administered on 12/14/16 15:12; Admin Dose 1 TAB; Start 12/11/16 at 21:00 Hydralazine HCl (Apresoline) 100 mg TID PO Last administered on 12/18/16 09:07 ; Admin Dose 100 MG; Start 12/12/16 at 21:00 Silver Sulfadiazine (Thermazene 1% 50 Gm) 1 applic BID TOP Last administered on 12/18/16 09:42; Admin Dose 1 APPLIC; Start 12/12/16 at 21:00 Clonidine (Catapres) 0.2 mg TID PO Last administered on 12/18/16 09:07; Admin Dose 0.2 MG; Start 12/14/16 at 21:00 Chlorthalidone (Hygroton) 25 mg DAILY PO Last administered on 12/18/16 09:07; Admin Dose 25 MG; Start 12/14/16 at 14:30 Cholecalciferol (Vitamin D) 2,000 unit DAILY PO Last administered on 12/18/16 09:40; Admin Dose 2,000 UNIT; Start 12/14/16 at 13:30 Miscellaneous Information (*Order Clarification Bulletin) MEDICATION REQUIRES CLARIFICATI... Q8H XX ; Start 12/16/16 at 23:30 Nifedipine (Procardia Xl) 60 mg BID PO Last administered on 12/18/16 09:41; Admin Dose 60 MG; Start 12/17/16 at 22:30 ALVIN TORRES MD Dec 18, 2016 12:24
--- NOTE | 2016-12-18 16:52 | CONS ---
DATE OF ADMISSION: 12/11/2016 DATE OF CONSULTATION: 12/18/2016 SUBJECTIVE FINDINGS: The patient is being followed for the left foot. He is status post hallux amp utation for gangrene. The patient has multiple comorbidities, currently in rehabilitation with goal s to obtain minimal assist with ambulation for 10 feet. The patient relates control of pain to the left foot. There is persistent discoloration. Denies any fever, nausea, vomiting, chills. OBJECTIVE FINDINGS VITAL SIGNS: Temperature 98.5, pulse 70, respiratory rate 18, blood pressure 184/86, pulse oximetry is 96% on room air. GENERAL: The patient is awake, alert, oriented, in no acute distress. Regular respiration. ABDOMEN: Soft. EXTREMITIES: Left foot status post partial hallux amputation with persistent cyanosis around the ul ceration. There is no malodor. The bone is exposed. Ulceration measures approximately 4 x 3 cm. Pedal pulses, nonpalpable. No evidence of decubitus changes. LABORATORIES: WBC 10.2, hemoglobin 12.2, hematocrit 36.9, platelets 212. Glucose is 117. ASSESSMENT: 1. Left foot gangrene. 2. Status post partial hallux amputation with residual skin necrosis. 3. Peripheral arterial disease. 4. Impaired mobility. 5. History of cerebrovascular accident with right-sided weakness. 6. End-stage renal disease, history of renal transplant. 7. Hypertension. PLAN: The patient seen and evaluated. There is persistent ulceration and will need staged wound ca re, definitive treatment pending clinical appearance. Advise the family to continue course of antib iotics and plan further surgical intervention as an outpatient. The patient will be continuing phys ical therapy. Dictated By: LIA OSHEA/KIEL Conf#: [id number] DID#: [id number]
[2016-12-18 20:00] VITALS: BP 135/80; RESP 20
[2016-12-18] MEDS: SENNA TAB PO SCH (20:41)
[2016-12-18] MEDS: INSULIN GLARGINE [LANtus] 3 ML PEN SC SCH (20:52)
[2016-12-19] MEDS: ACCUCHECK AT 2AM (Patients on SS coverage) XX SCH (02:10)
[2016-12-19] MEDS: LEVOFLOXACIN 500 MG TAB PO SCH (06:39)
[2016-12-19 07:30] VITALS: BP 171/79; RESP 18
[2016-12-19] MEDS: INSULIN ASPART [NOVOLOG] 3 ML PEN SC SCH ×4 (07:35→21:22)
[2016-12-19] MEDS: ENOXAPARIN 30 MG/0.3 ML SYG SC SCH (09:54)
[2016-12-19] MEDS: CHLORTHALIDONE 25 MG TAB PO SCH (09:55)
[2016-12-19] MEDS: TACROLIMUS 0.5 MG CAP PO SCH ×2 (09:55→21:15)
[2016-12-19] MEDS: CHOLECALCIFEROL 2,000 UNIT CAP PO SCH (09:55)
[2016-12-19] MEDS: ZYVOX 600 MG TAB PO SCH ×2 (09:55→21:16)
[2016-12-19] MEDS: DOCUSATE SODIUM 100 MG CAP PO SCH ×2 (09:55→21:14)
[2016-12-19] MEDS: predniSONE 5 MG TAB PO SCH (09:57)
[2016-12-19] MEDS: FAMOTIDINE 20 MG TAB PO SCH (09:57)
[2016-12-19] MEDS: NIFEdipine (XL) 60 MG TAB PO SCH ×2 (09:58→21:14)
[2016-12-19] MEDS: LEFLUNOMIDE 10 MG TAB PO SCH (09:58)
[2016-12-19] MEDS: SILVER SULFADIAZINE 1% 50 GM CR TOP SCH (10:03)
[2016-12-19] MEDS: LACTOBACILLUS CHEW TAB PO SCH ×2 (10:03→21:13)
--- NOTE | 2016-12-19 12:23 | CONS ---
Date/Time of Note Date/Time of Note DATE: 12/19/16 TIME: 12:22 Consult Date/Type/Reason Admit Date/Time Dec 11, 2016 at 16:26 Type of Consultation: id Subjective Pain under control Objective Vital Signs Date Time Temp Pulse Resp B/P Pulse Ox O2 Delivery O2 Flow Rate FiO2 12/18/16 20:00 98.5 74 20 135/80 98 12/18/16 08:00 Room Air Intake and Output 12/18/16 12/18/16 12/19/16 15:00 23:00 07:00 Intake Total 970 ml 240 ml Output Total 250 ml 500 ml Balance 720 ml -260 ml INTERDISCIPLINARY TEAM CONFERENCE BOWEL- Cont BLADDER-Cont SKIN- amputation site improving OT- DRESSING-min BATHING-min TOILETING-min PT- BED MOBILITY-cga TRANSFERS-cga AMBULATION-cga/min 20 feet X 3 W.C. MOBILITY-s A/P- Interdisciplinary team conference held today. Please see interdisciplinary sheet. Working toward d.c. on 12/20 with post discharge follow up of physical therapy, occupational therapy. Results/Medications Result Diagram: 12/16/16 0624 12/16/16 0624 Results 24 hrs Laboratory Tests Test 12/18/16 17:41 12/18/16 20:39 12/19/16 02:06 12/19/16 07:41 Bedside Glucose 203 228 H 100 109 Test 12/19/16 12:12 Bedside Glucose 246 H Medications Current Medications Docusate Sodium (Colace) 100 mg BID PO Last administered on 12/19/16 09:55; Admin Dose 100 MG; Start 12/11/16 at 21:00 Senna (Senokot) 1 tab HS PO Last administered on 12/18/16 20:41; Admin Dose 1 TAB; Start 12/11/16 at 21:00 Acetaminophen (Tylenol Tab) 650 mg Q4H PRN PO PAIN; Start 12/11/16 at 17:30 Bisacodyl (Dulcolax Supp) 10 mg DAILY PRN [place] CONSTIPATION; Start 12/11/16 at 17 :30 Magnesium Hydroxide (Milk Of Mag) 30 ml BID PRN PO CONSTIPATION; Start at 17:30 Lactulose (Enulose) 20 gm DAILY PRN PO CONSTIPATION Last administered on 08:32; Admin Dose 20 GM; Start 12/11/16 at 17:30 Miscellaneous Information 1 ea NOTE XX ; Start 12/11/16 at 17:30 Glucose (Glutose) 15 gm Q15M PRN PO DECREASED GLUCOSE; Start 12/11/16 at 17:30 Glucose (Glutose) 22.5 gm Q15M PRN PO DECREASED GLUCOSE; Start 12/11/16 at 17: 30 Dextrose (D50w Syringe) 25 ml Q15M PRN IV DECREASED GLUCOSE; Start 12/11/16 at 17:30 Dextrose (D50w Syringe) 50 ml Q15M PRN IV DECREASED GLUCOSE; Start 12/11/16 at 17:30 Glucagon (Glucagen) 1 mg Q15M PRN IM DECREASED GLUCOSE; Start 12/11/16 at 17:30 Glucose (Glutose) 15 gm Q15M PRN BUCCAL DECREASED GLUCOSE; Start 12/11/16 at 17 :30 Prednisone (Prednisone) 5 mg DAILY PO Last administered on 12/19/16 09:57; Admin Dose 5 MG; Start 12/12/16 at 09:00 Tacrolimus (Prograf) 0.5 mg BID PO Last administered on 12/19/16 09:55; Admin Dose 0.5 MG; Start 12/11/16 at 21:00 Insulin Glargine (Lantus) 25 unit HS SC Last administered on 12/18/16 20:52; Admin Dose 25 UNIT; Start 12/11/16 at 21:00 Morphine Sulfate (morphine) 2 mg Q3H PRN IV PAIN 9-10 Last administered on 12/12 18:15; Admin Dose 2 MG; Start 12/11/16 at 17:30 Hydralazine HCl (Apresoline) 10 mg Q4H PRN IV SBP greater than 160 Last administered on 12/16/16 01:38; Admin Dose 10 MG; Start 12/11/16 at 17:30 Leflunomide (Arava) 20 mg DAILY PO Last administered on 12/19/16 09:58; Admin Dose 20 MG; Start 12/12/16 at 09:00 Lactobacillus Acidoph/Bulgaricus (Floranex) 1 tab BID PO Last administered on 10:03; Admin Dose 1 TAB; Start 12/11/16 at 21:00 Famotidine (Pepcid) 20 mg DAILY PO Last administered on 12/19/16 09:57; Admin Dose 20 MG; Start 12/12/16 at 09:00 Guaifenesin (Robitussin Liquid Cup) 100 mg Q4H PRN PO COUGH Last administered on 12/16/16 12:31; Admin Dose 100 MG; Start 12/11/16 at 18:00 Enoxaparin Sodium (Lovenox) 30 mg DAILY SC Last administered on 12/19/16 09:54 ; Admin Dose 30 MG; Start 12/12/16 at 09:00 Linezolid (Zyvox) 600 mg BID PO Last administered on 12/19/16 09:55; Admin Dose 600 MG; Start 12/11/16 at 21:00 Diagnostic Test (Pha) (Accucheck) 1 ea 02 XX Last administered on 12/19/16 02: 10; Admin Dose 1 EA; Start 12/12/16 at 02:00 Levofloxacin (Levaquin) 500 mg DAILY@06 PO Last administered on 12/19/16 06:39 ; Admin Dose 500 MG; Start 12/12/16 at 06:00 Carvedilol (Coreg) 25 mg BID PO Last administered on 12/19/16 09:57; Admin Dose 25 MG; Start 12/11/16 at 21:00 Acetaminophen/ Hydrocodone Bitart ([place] (10/325)) 1 tab Q4H PRN PO PAIN Last administered on 12/14/16 15:12; Admin Dose 1 TAB; Start 12/11/16 at 21:00 Hydralazine HCl (Apresoline) 100 mg TID PO Last administered on 12/19/16 09:55 ; Admin Dose 100 MG; Start 12/12/16 at 21:00 Silver Sulfadiazine (Thermazene 1% 50 Gm) 1 applic BID TOP Last administered on 12/19/16 10:03; Admin Dose 1 APPLIC; Start 12/12/16 at 21:00 Clonidine (Catapres) 0.2 mg TID PO Last administered on 12/19/16 09:57; Admin Dose 0.2 MG; Start 12/14/16 at 21:00 Chlorthalidone (Hygroton) 25 mg DAILY PO Last administered on 12/19/16 09:55; Admin Dose 25 MG; Start 12/14/16 at 14:30 Cholecalciferol (Vitamin D) 2,000 unit DAILY PO Last administered on 12/19/16 09:55; Admin Dose 2,000 UNIT; Start 12/14/16 at 13:30 Nifedipine (Procardia Xl) 60 mg BID PO Last administered on 12/19/16 09:58; Admin Dose 60 MG; Start 12/17/16 at 22:30 ENRICO HENDERSON MD Dec 19, 2016 12:23
--- NOTE | 2016-12-19 14:21 | PN ---
Date/Time of Note Date/Time of Note DATE: 12/19/16 TIME: 14:21 Assessment/Plan VTE Prophylaxis VTE Prophylaxis Intervention: LMWH Lines/Catheters IV [facility]ter [facility] (from [facility] Saline Lock Urinary Cath still in place: No Assessment/Plan Chief Complaint/Hosp Course ASSESSMENT AND PLAN 1. 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 Continue antibiotics. 2. Cellulitis, as above. 3. Diabetes mellitus type 2. Continue Lantus, insulin sliding scale, and low carb diet. 4. History of kidney transplant. Nephrology has been consulted. Continue Prograf and steroids. 5. Essential hypertension. Continue Coreg, nifedipine, and clonidine. Continue to monitor. 6. For deep venous thrombosis prophylaxis, on Lovenox. 7. For gastrointestinal prophylaxis, on Pepcid. We will continue to monitor patient closely. Further recommendations, management, and treatment as per clinical course. Problems: Subjective 24 Hr Interval Summary Free Text/Dictation No acute changes Patient is able to ambulate with minimal assist Denies of having discomfort in his lower extremity Exam/Review of Systems Vital Signs Vitals Vital Signs Date Time Temp Pulse Resp B/P Pulse Ox O2 Delivery O2 Flow Rate FiO2 12/18/16 20:00 98.5 74 20 135/80 98 12/18/16 08:00 Room Air Intake and Output 12/18/16 12/18/16 12/19/16 15:00 23:00 07:00 Intake Total 970 ml 240 ml Output Total 250 ml 500 ml Balance 720 ml -260 ml Exam General: The patient is well-developed, Not in acute distress. HEENT: Atraumatic, normocephalic. The pupils are equal and round . Neck: Supple with full range of motion. Chest: Normal expansion of the thorax during inspiration Lungs: Clear to auscultation bilaterally Heart: Normal S1-S2, Regular rhythm and rate. Abdomen: Soft , nontender, nondistended , bowel sounds are present. Extremities: Left foot and dry dressing, no edema no cyanosis Neurologic: Normal mental status,The patient is awake, alert and oriented . Results Result Diagram: 12/16/16 0624 12/16/16 0624 Results 24 hrs Laboratory Tests Test 12/18/16 17:41 12/18/16 20:39 12/19/16 02:06 12/19/16 07:41 Bedside Glucose 203 228 H 100 109 Test 12/19/16 12:12 Bedside Glucose 246 H Medications Medications Current Medications Docusate Sodium (Colace) 100 mg BID PO Last administered on 12/19/16 09:55; Admin Dose 100 MG; Start 12/11/16 at 21:00 Senna (Senokot) 1 tab HS PO Last administered on 12/18/16 20:41; Admin Dose 1 TAB; Start 12/11/16 at 21:00 Acetaminophen (Tylenol Tab) 650 mg Q4H PRN PO PAIN; Start 12/11/16 at 17:30 Bisacodyl (Dulcolax Supp) 10 mg DAILY PRN [place] CONSTIPATION; Start 12/11/16 at 17 :30 Magnesium Hydroxide (Milk Of Mag) 30 ml BID PRN PO CONSTIPATION; Start at 17:30 Lactulose (Enulose) 20 gm DAILY PRN PO CONSTIPATION Last administered on 08:32; Admin Dose 20 GM; Start 12/11/16 at 17:30 Miscellaneous Information 1 ea NOTE XX ; Start 12/11/16 at 17:30 Glucose (Glutose) 15 gm Q15M PRN PO DECREASED GLUCOSE; Start 12/11/16 at 17:30 Glucose (Glutose) 22.5 gm Q15M PRN PO DECREASED GLUCOSE; Start 12/11/16 at 17: 30 Dextrose (D50w Syringe) 25 ml Q15M PRN IV DECREASED GLUCOSE; Start 12/11/16 at 17:30 Dextrose (D50w Syringe) 50 ml Q15M PRN IV DECREASED GLUCOSE; Start 12/11/16 at 17:30 Glucagon (Glucagen) 1 mg Q15M PRN IM DECREASED GLUCOSE; Start 12/11/16 at 17:30 Glucose (Glutose) 15 gm Q15M PRN BUCCAL DECREASED GLUCOSE; Start 12/11/16 at 17 :30 Prednisone (Prednisone) 5 mg DAILY PO Last administered on 12/19/16 09:57; Admin Dose 5 MG; Start 12/12/16 at 09:00 Tacrolimus (Prograf) 0.5 mg BID PO Last administered on 12/19/16 09:55; Admin Dose 0.5 MG; Start 12/11/16 at 21:00 Insulin Glargine (Lantus) 25 unit HS SC Last administered on 12/18/16 20:52; Admin Dose 25 UNIT; Start 12/11/16 at 21:00 Morphine Sulfate (morphine) 2 mg Q3H PRN IV PAIN 9-10 Last administered on 12/12 18:15; Admin Dose 2 MG; Start 12/11/16 at 17:30 Hydralazine HCl (Apresoline) 10 mg Q4H PRN IV SBP greater than 160 Last administered on 12/16/16 01:38; Admin Dose 10 MG; Start 12/11/16 at 17:30 Leflunomide (Arava) 20 mg DAILY PO Last administered on 12/19/16 09:58; Admin Dose 20 MG; Start 12/12/16 at 09:00 Lactobacillus Acidoph/Bulgaricus (Floranex) 1 tab BID PO Last administered on 10:03; Admin Dose 1 TAB; Start 12/11/16 at 21:00 Famotidine (Pepcid) 20 mg DAILY PO Last administered on 12/19/16 09:57; Admin Dose 20 MG; Start 12/12/16 at 09:00 Guaifenesin (Robitussin Liquid Cup) 100 mg Q4H PRN PO COUGH Last administered on 12/16/16 12:31; Admin Dose 100 MG; Start 12/11/16 at 18:00 Enoxaparin Sodium (Lovenox) 30 mg DAILY SC Last administered on 12/19/16 09:54 ; Admin Dose 30 MG; Start 12/12/16 at 09:00 Linezolid (Zyvox) 600 mg BID PO Last administered on 12/19/16 09:55; Admin Dose 600 MG; Start 12/11/16 at 21:00 Diagnostic Test (Pha) (Accucheck) 1 ea 02 XX Last administered on 12/19/16 02: 10; Admin Dose 1 EA; Start 12/12/16 at 02:00 Levofloxacin (Levaquin) 500 mg DAILY@06 PO Last administered on 12/19/16 06:39 ; Admin Dose 500 MG; Start 12/12/16 at 06:00 Carvedilol (Coreg) 25 mg BID PO Last administered on 12/19/16 09:57; Admin Dose 25 MG; Start 1/22/17 at 21:00 Acetaminophen/ Hydrocodone Bitart ([place] (10/325)) 1 tab Q4H PRN PO PAIN Last administered on 12/14/16 15:12; Admin Dose 1 TAB; Start 12/11/16 at 21:00 Hydralazine HCl (Apresoline) 100 mg TID PO Last administered on 12/19/16 12:28 ; Admin Dose 100 MG; Start 12/12/16 at 21:00 Silver Sulfadiazine (Thermazene 1% 50 Gm) 1 applic BID TOP Last administered on 12/19/16 10:03; Admin Dose 1 APPLIC; Start 12/12/16 at 21:00 Clonidine (Catapres) 0.2 mg TID PO Last administered on 12/19/16 12:28; Admin Dose 0.2 MG; Start 12/14/16 at 21:00 Chlorthalidone (Hygroton) 25 mg DAILY PO Last administered on 12/19/16 09:55; Admin Dose 25 MG; Start 12/14/16 at 14:30 Cholecalciferol (Vitamin D) 2,000 unit DAILY PO Last administered on 12/19/16 09:55; Admin Dose 2,000 UNIT; Start 12/14/16 at 13:30 Nifedipine (Procardia Xl) 60 mg BID PO Last administered on 12/19/16 09:58; Admin Dose 60 MG; Start 12/17/16 at 22:30 ALVIN TORRES MD Dec 19, 2016 14:21
[2016-12-19 20:00] VITALS: BP 148/70; RESP 18
[2016-12-19] MEDS ORDERED: SILVER SULFADIAZINE 1% 400 GM CR TOP SCH (21:00)
[2016-12-19] MEDS: SENNA TAB PO SCH (21:14)
[2016-12-19] MEDS: INSULIN GLARGINE [LANtus] 3 ML PEN SC SCH (21:22)
[2016-12-19] MEDS: SILVER SULFADIAZINE 1% 25 GM CR TOP SCH (21:33)
[2016-12-20] MEDS: ACCUCHECK AT 2AM (Patients on SS coverage) XX SCH (02:12)
--- NOTE | 2016-12-20 04:10 | CONS ---
DATE OF ADMISSION: 12/11/2016 DATE OF CONSULTATION: 12/19/2016 SUBJECTIVE FINDINGS: The patient is status post left partial hallux amputation. He has improvement s with physical therapy and is pending discharge tomorrow. The patient denies any fever, nausea, or vomiting and relates less pain to the left foot OBJECTIVE FINDINGS VITAL SIGNS: Temperature 98.3, pulse 72, respiratory rate 18, blood pressure 171/79, pulse ox is 94 . GENERAL: The patient awake, alert, oriented, in no acute distress. Regular respiration. EXTREMITIES: Left foot partial hallux amputation noted. No malodor, no drainage. There is decreas ed inflammation to the dorsal aspect of the foot, cyanosis to the periwound persist, bone exposed. LABORATORIES: WBC 10.2, hemoglobin 12.2, hematocrit 36.9, platelets 212. ASSESSMENT: 1. Left foot osteomyelitis. 2. Status post partial left hallux amputation with residual skin necrosis. 3. Peripheral arterial disease with history of anterior tibial angioplasty. 4. Impaired mobility. 5. History of cerebrovascular accident with right-sided weakness 6. End-stage renal disease, history of a renal allograft 7. Hypertension. PLAN: The patient is seen and evaluated. Continue topical care. Discussed further outpatient katlyn tments and likely need for further surgical intervention. Dispense postoperative shoe and Silvadene and continue use as an outpatient. The patient is scheduled for 6 weeks of IV antibiotics. Dictated By: LIA OSHEA/KIEL Conf#: [id number] DID#: [id number]
[2016-12-20] MEDS: LEVOFLOXACIN 500 MG TAB PO SCH (06:56)
[2016-12-20] MEDS: INSULIN ASPART [NOVOLOG] 3 ML PEN SC SCH (07:59)
[2016-12-20 08:33] VITALS: BP 150/71; RESP 18
[2016-12-20] MEDS: SILVER SULFADIAZINE 1% 25 GM CR TOP SCH (09:00)
[2016-12-20] MEDS: predniSONE 5 MG TAB PO SCH (09:55)
[2016-12-20] MEDS: NIFEdipine (XL) 60 MG TAB PO SCH (09:55)
[2016-12-20] MEDS: DOCUSATE SODIUM 100 MG CAP PO SCH (09:55)
[2016-12-20] MEDS: FAMOTIDINE 20 MG TAB PO SCH (09:55)
[2016-12-20] MEDS: LEFLUNOMIDE 10 MG TAB PO SCH (09:55)
[2016-12-20] MEDS: CHLORTHALIDONE 25 MG TAB PO SCH (09:55)
[2016-12-20] MEDS: ZYVOX 600 MG TAB PO SCH (09:56)
[2016-12-20] MEDS: TACROLIMUS 0.5 MG CAP PO SCH (09:56)
[2016-12-20] MEDS: CHOLECALCIFEROL 2,000 UNIT CAP PO SCH (09:56)
[2016-12-20] MEDS: LACTOBACILLUS CHEW TAB PO SCH (09:56)
[2016-12-20] MEDS: ENOXAPARIN 30 MG/0.3 ML SYG SC SCH (10:00)
--- NOTE | 2016-12-20 16:37 | PN ---
Date/Time of Note Date/Time of Note DATE: 12/20/16 TIME: 11;00 Assessment/Plan VTE Prophylaxis VTE Prophylaxis Intervention: LMWH Lines/Catheters [facility] Saline Lock Urinary Cath still in place: No Assessment/Plan Chief Complaint/Hosp Course ASSESSMENT AND PLAN 1. 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 Continue antibiotics. 2. Cellulitis, as above. 3. Diabetes mellitus type 2. Continue Lantus, insulin sliding scale, and low carb diet. 4. History of kidney transplant. Nephrology has been consulted. Continue Prograf and steroids. 5. Essential hypertension. Continue Coreg, nifedipine, and clonidine. Continue to monitor. 6. For deep venous thrombosis prophylaxis, on Lovenox. 7. For gastrointestinal prophylaxis, on Pepcid. Discharge home with home health Problems: Subjective 24 Hr Interval Summary Free Text/Dictation No acute changes Patient is set to be discharged home today Exam/Review of Systems Vital Signs Vitals Vital Signs Date Time Temp Pulse Resp B/P Pulse Ox O2 Delivery O2 Flow Rate FiO2 12/20/16 08:33 98.3 71 18 150/71 96 12/18/16 08:00 Room Air Intake and Output 12/19/16 12/19/16 12/20/16 15:00 23:00 07:00 Intake Total 620 ml Output Total 400 ml 320 ml Balance -400 ml 300 ml Exam General: The patient is well-developed, Not in acute distress. HEENT: Atraumatic, normocephalic. The pupils are equal and round . Neck: Supple with full range of motion. Chest: Normal expansion of the thorax during inspiration Lungs: Clear to auscultation bilaterally Heart: Normal S1-S2, Regular rhythm and rate. Abdomen: Soft , nontender, nondistended , bowel sounds are present. Extremities: Left foot and dry dressing, no edema no cyanosis Neurologic: Normal mental status,The patient is awake, alert and oriented . Results Result Diagram: 12/16/1624 12/16/1624 Results 24 hrs Laboratory Tests Test 12/19/16 17:16 12/19/16 21:11 12/20/16 02:02 12/20/16 07:41 Bedside Glucose 210 249 H 198 168 ALVIN TORRES MD Dec 20, 2016 16:37
--- NOTE | 2016-12-21 18:46 | DS ---
DATE OF ADMISSION: 12/11/2016 DATE OF DISCHARGE: 12/20/2016 ADMISSION DIAGNOSES: 1. Other orthopedic injury with left first toe amputation secondary to osteomyelitis. 2. Diabetes mellitus. 3. Diabetic neuropathy. 4. History of cerebrovascular accident with residual left-sided weakness and functional impairment. 5. End-stage renal disease with history of transplant. 6. Impairments in self-care and mobility. DISCHARGE DIAGNOSES: 1. Other orthopedic injury with left first toe amputation secondary to osteomyelitis. 2. Diabetes mellitus. 3. Diabetic neuropathy. 4. History of cerebrovascular accident with residual left-sided weakness and functional impairment. 5. End-stage renal disease with history of transplant. 6. Improvements in self-care and mobility. HOSPITAL COURSE: The patient was admitted for comprehensive interdisciplinary rehab care and made e xcellent functional gains during the course of the stay. The patient progressed from an initial mod erate assist for self-care and mobility tasks and progressed to the point of standby assist for all areas of self-care and mobility including wheelchair mobility 150 feet. The patient was able to amb ulate 20 feet x3 with minimal to contact guard assist. The patient's family was able to demonstrate safe carryover of technique. The patient is being discharged home with recommendation of [facility] physical therapy, occupational therapy, and home health nursing followup. DISCHARGE MEDICATIONS: Per the medication reconciliation sheet. CONDITION ON DISCHARGE: Stable. Dictated By: ENRICO GARNETT/KIEL Conf#: [id number] DID#: [id number]
== END 2016-12-20 11:55 | disposition home health service (06) | DRG 500 ==
LOC: VRC 16:26
PROVIDERS: ADMIT Physical Medicine & Rehabilitation; ATTEND Family Medicine
PROC: 0KBW0ZZ Excision of Left Foot Muscle, Open Approach (ICD-10-PCS; principal; 2016-12-13)
DX: M86.8X8 Other osteomyelitis, other site (principal); N18.6 End stage renal disease; I12.0 Hypertensive chronic kidney disease with stage 5 chronic kidney disease or end stage renal disease; E13.628 Other specified diabetes mellitus with other skin complications; I69.951 Hemiplegia and hemiparesis following unspecified cerebrovascular disease affecting right dominant side; Z94.0 Kidney transplant status; L03.032 Cellulitis of left toe; E11.40 Type 2 diabetes mellitus with diabetic neuropathy, unspecified; Z89.412 Acquired absence of left great toe; B96.89 Other specified bacterial agents as the cause of diseases classified elsewhere; Z16.21 Resistance to vancomycin; L97.529 Non-pressure chronic ulcer of other part of left foot with unspecified severity
CPT/HCPCS: 80048; 80053; 80061; 80197; 81003; 82306; 82962; 83735; 85025; 87081; 87086; 95852; 97110; 97112; 97116; 97150; 97163; 97167; 97530; 97535; 97542; J0360; J1650; J1815; J2270; J7512; L3260-LT